=== PATIENT | female | born 1935 | race Caucasian/White ===

== ENCOUNTER 2022-10-30 11:43 | Emergency (ER) | payer OTHER ==
--- OUTSIDE RECORDS SUMMARY | 2022-10-30 11:49 | XMS REPORT | Continuity of Care Document ---
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 Fenofibrate 2021-0 Yes TAKE ONE Ke lsey 160 MG oral 2-21 (1) Seybold Tablet 00:00: TABLET(S) 00 BY MOUTH ONCE A DAY. Fenofibrate 2021-0 Yes TAKE ONE Ke lsey 160 MG oral 2-21 (1) Seybold Tablet 00:00: TABLET(S) 00 BY MOUTH ONCE A DAY. Fenofibrate 2021-0 Yes TAKE ONE Ke lsey 160 MG oral 2-21 (1) Seybold Tablet 00:00: TABLET(S) - 00 BY MOUTH Externa ONCE A l DAY. Fenofibrate 2021-0 Yes TAKE ONE Ke lsey 160 MG oral 2-21 (1) Seybold Tablet 00:00: TABLET(S) - 00 BY MOUTH Externa ONCE A l DAY. Fenofibrate 2021-0 Yes TAKE ONE Ke lsey 160 MG oral 2-21 (1) Seybold Tablet 00:00: TABLET(S) - 00 BY MOUTH Externa ONCE A l DAY. Fenofibrate 2021-0 Yes TAKE ONE Ke lsey 160 MG oral 2-21 (1) Seybold Tablet 00:00: TABLET(S) - 00 BY MOUTH Externa ONCE A l DAY. Propranolol 2021-0 Yes 10mg Take 1 Susan ey HCl 10 MG 2-15 tablet (10 Seyb old oral Tablet 00:00: mg total) 00 by mouth 3 times daily Propranolol Yes 10mg Take 1 Susan ey HCl 10 MG 2-15 tablet (10 Seyb old oral Tablet 00:00: mg total) 00 by mouth 3 times daily Propranolol Yes 10mg Take 1 Susan ey HCl 10 MG 2-15 tablet (10 Seyb old oral Tablet 00:00: mg total) 00 by mouth 3 times daily Pregabalin Yes TAKE ONE Timbo sey 75 MG oral 2-08 (1) Seybold Capsule 00:00: CAPSULE(S) 00 BY MOUTH DAILY AFTER BREAKFAST AND TWO (2) CAPSULES AT BEDTIME. Pregabalin 2021- No TAKE ONE Ke lsey 75 MG oral 2-08 05-23 (1) Seybold Capsule 00:00: 00:00 CAPSULE(S) 00 :00 BY MOUTH DAILY AFTER BREAKFAST AND TWO (2) CAPSULES AT BEDTIME. CALCIUM OR Yes Take by Susan ey 1-31 mouth Seybold 14:30: 55 Multiple Yes Take by Yara Vitamins-Mi 1-31 mouth 2 Seybo ld nerals 14:30: times (PRESERVISI 55 daily ON AREDS 2 OR) Oxycodone Yes [id number] TAKE 1 K elsey HCl 10 MG 1-24 TABLET BY Seybo ld oral Tablet 00:00: MOUTH 00 EVERY 6 HOURS NEEDED Baclofen 10 Yes [id number] TAKE K elsey MG oral 1-10 ONE-HALF Seybold Tablet 00:00: TO ONE 00 TABLET BY MOUTH AT BEDTIME NEEDED FOR SPASMS. Pregabalin Yes TAKE ONE Timbo sey 75 MG oral 1-10 (1) Seybold Capsule 00:00: CAPSULE(S) 00 BY MOUTH DAILY AFTER BREAKFAST AND TWO (2) CAPSULES AT BEDTIME. Propranolol 2020-05 Yes 10mg Take 1 Susan ey HCl 10 MG 1-24 tablet (10 Seyb old oral Tablet 00:00: mg total) 00 by mouth 3 times daily Citalopram 2020-05 Yes TAKE 1 Kelse y Hydrobromid 1-19 TABLET BY Sey bold e 10 MG 00:00: MOUTH oral Tablet 00 EVERY DAY Citalopram 2020-05 Yes TAKE 1 Kelse y Hydrobromid 1-19 TABLET BY Sey bold e 10 MG 00:00: MOUTH oral Tablet 00 EVERY DAY Citalopram 2020-05 Yes TAKE 1 Kelse y Hydrobromid 1-19 TABLET BY Sey bold e 10 MG 00:00: MOUTH oral Tablet 00 EVERY DAY Citalopram 2020-05 Yes TAKE 1 Kelse y Hydrobromid 1-19 TABLET BY Sey bold e 10 MG 00:00: MOUTH oral Tablet 00 EVERY DAY CALCIUM OR 2020-05 Yes Take by Susan ey 1-10 mouth Seybold 13:31: 15 Multiple 2020-05 Yes Take by Yara Vitamins-Mi 1-10 mouth 2 Seybo ld nerals 13:31: times (PRESERVISI 15 daily ON AREDS 2 OR) Baclofen 10 2020-05 Yes [id number] 05/24- Yaar MG oral 1-10 tablet at Seybold Tablet 00:00: bedtime as 00 needed for spasms Montelukast 2020-05 Yes TAKE 1 Susan ey (SINGULAIR) 1-03 TABLET BY Sey bold 10 MG oral 00:00: MOUTH Tablet 00 EVERYDAY tablet AT BEDTIME Montelukast 2020-05 Yes TAKE 1 Susan ey (SINGULAIR) 1-03 TABLET BY Sey bold 10 MG oral 00:00: MOUTH Tablet 00 EVERYDAY tablet AT BEDTIME Montelukast 2020-05 Yes TAKE 1 Susan ey (SINGULAIR) 1-03 TABLET BY Sey bold 10 MG oral 00:00: MOUTH Tablet 00 EVERYDAY tablet AT BEDTIME Montelukast 2020-05 Yes TAKE 1 Susan ey (SINGULAIR) 1-03 TABLET BY Sey bold 10 MG oral 00:00: MOUTH Tablet 00 EVERYDAY tablet AT BEDTIME Montelukast 2020-05 Yes TAKE 1 Susan ey (SINGULAIR) 1-03 TABLET BY Sey bold 10 MG oral 00:00: MOUTH Tablet 00 EVERYDAY tablet AT BEDTIME Oxycodone 2020-05 Yes [id number] TAKE ONE Yara HCl 10 MG 0-21 (1) TABLET Seyb old oral Tablet 00:00: BY MOUTH 00 EVERY 6 HOURS NEEDED. CALCIUM OR 2020-05 Yes Take by Susan ey 0-18 mouth Seybold 14:00: 45 Multiple 2020-05 Yes Take by Yara Vitamins-Mi 0-18 mouth 2 Seybo ld nerals 14:00: times (PRESERVISI 45 daily ON AREDS 2 OR) Amlodipine 2020-05 Yes [id number] 5mg Take 1 K elsey Besylate 5 0-13 tablet (5 Seyb old MG oral 00:00: mg total) Tablet 00 by mouth daily Amlodipine 2020-05 Yes [id number] 5mg Take 1 K elsey Besylate 5 0-13 tablet (5 Seyb old MG oral 00:00: mg total) Tablet 00 by mouth daily Amlodipine 2020-05 Yes [id number] 5mg Take 1 K elsey Besylate 5 0-13 tablet (5 Seyb old MG oral 00:00: mg total) Tablet 00 by mouth daily CALCIUM OR 2020-05 Yes Take by Susan ey 0-06 mouth Seybold 13:12: 25 Multiple 2020-05 Yes Take by Yara Vitamins-Mi 0-06 mouth 2 Seybo ld nerals 13:12: times (PRESERVISI 25 daily ON AREDS 2 OR) Omeprazole 2020-05 Yes 40mg Take 1 Kelse y 40 MG oral 0-06 capsule Seybol d Delayed 00:00: (40 mg Release 00 total) by Capsule mouth daily Omeprazole 2020-05 Yes 40mg Take 1 Kelse y 40 MG oral 0-06 capsule Seybol d Delayed 00:00: (40 mg Release 00 total) by Capsule mouth daily Omeprazole 2020-05 Yes 40mg Take 1 Kelse y 40 MG oral 0-06 capsule Seybol d Delayed 00:00: (40 mg Release 00 total) by Capsule mouth daily Omeprazole 2020-05 Yes 40mg Take 1 Kelse y 40 MG oral 0-06 capsule Seybol d Delayed 00:00: (40 mg Release 00 total) by Capsule mouth daily Omeprazole 2020-05- No 40mg Take 1 Susan ey 40 MG oral 0-06 04-26 capsule Seybo ld Delayed 00:00: 00:00 (40 mg Release 00 :00 total) by Capsule mouth daily Oxycodone Yes [id number] TAKE ONE Yara HCl 10 MG 9-22 (1) TABLET Seyb old oral Tablet 00:00: BY MOUTH 00 EVERY 6 HOURS NEEDED. Oxycodone Yes [id number] TAKE ONE Yara HCl 10 MG 9-22 (1) TABLET Seyb old oral Tablet 00:00: BY MOUTH 00 EVERY 6 HOURS NEEDED. Levocetiriz Yes [id number] TAKE ONE Yara ine 9-20 (1) TABLET Seybold Dihydrochlo 00:00: (5 MG ride 5 MG 00 TOTAL) BY oral Tablet MOUTH DAILY. Levocetiriz Yes [id number] TAKE ONE Yara ine 9-20 (1) TABLET Seybold Dihydrochlo 00:00: (5 MG ride 5 MG 00 TOTAL) BY oral Tablet MOUTH DAILY. Levocetiriz Yes [id number] TAKE ONE Yara ine 9-20 (1) TABLET Seybold Dihydrochlo 00:00: (5 MG ride 5 MG 00 TOTAL) BY oral Tablet MOUTH DAILY. Levocetiriz Yes [id number] TAKE ONE Yara ine 9-20 (1) TABLET Seybold Dihydrochlo 00:00: (5 MG ride 5 MG 00 TOTAL) BY oral Tablet MOUTH DAILY. Levocetiriz Yes [id number] TAKE ONE Yara ine 9-20 (1) TABLET Seybold Dihydrochlo 00:00: (5 MG ride 5 MG 00 TOTAL) BY oral Tablet MOUTH DAILY. Levocetiriz Yes [id number] TAKE ONE Yara ine 9-20 (1) TABLET Seybold Dihydrochlo 00:00: (5 MG ride 5 MG 00 TOTAL) BY oral Tablet MOUTH DAILY. Levocetiriz Yes [id number] TAKE ONE Yara ine 9-20 (1) TABLET Seybold Dihydrochlo 00:00: (5 MG ride 5 MG 00 TOTAL) BY oral Tablet MOUTH DAILY. Gabapentin 2020-0 Yes 800mg Take 1 Susan ey 800 MG oral 8-29 tablet Seybol d Tablet 00:00: (800 mg 00 total) by mouth 3 times daily Gabapentin 2020-0 Yes 800mg Take 1 Susan ey 800 MG oral 8-29 tablet Seybol d Tablet 00:00: (800 mg 00 total) by mouth 3 times daily Gabapentin 2020-0 2021- No 800mg Take 1 Timbo sey 800 MG oral 8-29 11-10 tablet Seybo ld Tablet 00:00: 00:00 (800 mg 00 :00 total) by mouth 3 times daily FLUTICASONE 2021-0 Yes [id number] INSTILL Yara PROPIONATE, 7- TWO (2) Seybo ld NASAL, 50 00:00: SPRAYS IN MCG/ACT 00 EACH nasal NOSTRIL Suspension ONCE DAILY. FLUTICASONE 1-0 Yes [id number] INSTILL Yara PROPIONATE, 7- TWO (2) Seybo ld NASAL, 50 00:00: SPRAYS IN MCG/ACT 00 EACH nasal NOSTRIL Suspension ONCE DAILY. FLUTICASONE 2021-0 Yes [id number] INSTILL Yara PROPIONATE, 7- TWO (2) Seybo ld NASAL, 50 00:00: SPRAYS IN MCG/ACT 00 EACH nasal NOSTRIL Suspension ONCE DAILY. FLUTICASONE 2021-0 Yes [id number] INSTILL Yara PROPIONATE, 7- TWO (2) Seybo ld NASAL, 50 00:00: SPRAYS IN MCG/ACT 00 EACH nasal NOSTRIL Suspension ONCE DAILY. FLUTICASONE 2021-0 Yes [id number] INSTILL Yara PROPIONATE, 7- TWO (2) Seybo ld NASAL, 50 00:00: SPRAYS IN MCG/ACT 00 EACH nasal NOSTRIL Suspension ONCE DAILY. Cefdinir 1-0 Yes 300mg Take 1 Yara 300 MG oral 7-14 capsule Seybo ld Capsule 00:00: (300 mg 00 total) by mouth 2 times daily Cefdinir 2021-0 Yes 300mg Take 1 Yara 300 MG oral 7-14 capsule Seybo ld Capsule 00:00: (300 mg 00 total) by mouth 2 times daily Cefdinir 2021-0 Yes 300mg Take 1 Yara 300 MG oral 7-14 capsule Seybo ld Capsule 00:00: (300 mg 00 total) by mouth 2 times daily Cefdinir 2021-0 Yes 300mg Take 1 Yara 300 MG oral 7-14 capsule Seybo ld Capsule 00:00: (300 mg 00 total) by mouth 2 times daily Cefdinir 2021-0 2022- No 300mg Take 1 Kelse y 300 MG oral 7-14 04-26 capsule Seyb old Capsule 00:00: 00:00 (300 mg 00 :00 total) by mouth 2 times daily Omeprazole 2020-0 Yes TAKE ONE Timbo sey 40 MG oral 7-12 (1) Seybold Delayed 00:00: CAPSULE(S) Release 00 BY MOUTH Capsule ONCE A DAY. Omeprazole 2020-0 Yes TAKE ONE Timbo sey 40 MG oral 7-12 (1) Seybold Delayed 00:00: CAPSULE(S) Release 00 BY MOUTH Capsule ONCE A DAY. Omeprazole 2020-0 Yes TAKE ONE Timbo sey 40 MG oral 7-12 (1) Seybold Delayed 00:00: CAPSULE(S) Release 00 BY MOUTH Capsule ONCE A DAY. Omeprazole 2020-0 Yes TAKE ONE Timbo sey 40 MG oral 7-12 (1) Seybold Delayed 00:00: CAPSULE(S) Release 00 BY MOUTH Capsule ONCE A DAY. Omeprazole 2020-0 Yes TAKE ONE Timbo sey 40 MG oral 7-12 (1) Seybold Delayed 00:00: CAPSULE(S) Release 00 BY MOUTH Capsule ONCE A DAY. Omeprazole 2020-0 Yes TAKE ONE Timbo sey 40 MG oral 7-12 (1) Seybold Delayed 00:00: CAPSULE(S) Release 00 BY MOUTH Capsule ONCE A DAY. Omeprazole 2020-0 Yes TAKE ONE Timbo sey 40 MG oral 7-12 (1) Seybold Delayed 00:00: CAPSULE(S) - Release 00 BY MOUTH Externa Capsule ONCE A l DAY. Omeprazole 2020-0 Yes TAKE ONE Timbo sey 40 MG oral 7-12 (1) Seybold Delayed 00:00: CAPSULE(S) - Release 00 BY MOUTH Externa Capsule ONCE A l DAY. Omeprazole 2020-0 Yes TAKE ONE Timbo sey 40 MG oral 7-12 (1) Seybold Delayed 00:00: CAPSULE(S) Release 00 BY MOUTH Capsule ONCE A DAY. methylPREDN 2020-0 Yes 1{mckenzie} Take 1 mckenzie Yara ISolone 6-30 by mouth Seybold (Medrol) 4 00:00: See Admin MG oral 00 Instructio Tablet ns 6 day Therapy taper Pack course methylPREDN 2020-0 Yes 1{mckenzie} Take 1 mckenzie Yara ISolone 6-30 by mouth Seybold (Medrol) 4 00:00: See Admin MG oral 00 Instructio Tablet ns 6 day Therapy taper Pack course methylPREDN 2020- No 1{mckenzie} Take 1 mckenzie Yara ISolone 6-30 11-10 by mouth Seybold (Medrol) 4 00:00: 00:00 See Admin MG oral 00 :00 Instructio Tablet ns 6 day Therapy taper Pack course Lisinopril Yes 10mg Take 1 Kelse y 10 MG oral 6-29 tablet (10 Sey bold Tablet 00:00: mg total) 00 by mouth daily Lisinopril Yes 10mg Take 1 Kelse y 10 MG oral 6-29 tablet (10 Sey bold Tablet 00:00: mg total) 00 by mouth daily Lisinopril Yes 10mg Take 1 Kelse y 10 MG oral 6-29 tablet (10 Sey bold Tablet 00:00: mg total) 00 by mouth daily Lisinopril Yes 10mg Take 1 Kelse y 10 MG oral 6-29 tablet (10 Sey bold Tablet 00:00: mg total) 00 by mouth daily Lisinopril Yes 10mg Take 1 Kelse y 10 MG oral 6-29 tablet (10 Sey bold Tablet 00:00: mg total) 00 by mouth daily Lisinopril Yes 10mg Take 1 Kelse y 10 MG oral 6-29 tablet (10 Sey bold Tablet 00:00: mg total) 00 by mouth daily Lisinopril Yes 10mg Take 1 Kelse y 10 MG oral 6-29 tablet (10 Sey bold Tablet 00:00: mg total) 00 by mouth daily Propranolol Yes 10mg Take 1 Susan ey HCl 10 MG 6-02 tablet (10 Seyb old oral Tablet 00:00: mg total) 00 by mouth 3 times daily Propranolol Yes 10mg Take 1 Susan ey HCl 10 MG 6-02 tablet (10 Seyb old oral Tablet 00:00: mg total) 00 by mouth 3 times daily Propranolol 2020- Yes 10mg Take 1 Susan ey HCl 10 MG 6-02 tablet (10 Seyb old oral Tablet 00:00: mg total) 00 by mouth 3 times daily Amlodipine Yes [id number] 5mg Take 1 K elsey Besylate 5 4-26 tablet (5 Seyb old MG oral 00:00: mg total) Tablet 00 by mouth daily Fenofibrate Yes 160mg Take 1 Timbo sey 160 MG oral 2-08 tablet Seybol d Tab 00:00: (160 mg 00 total) by mouth daily Fenofibrate Yes 160mg Take 1 Timbo sey 160 MG oral 2-08 tablet Seybol d Tab 00:00: (160 mg 00 total) by mouth daily Fenofibrate Yes 160mg Take 1 Timbo sey 160 MG oral 2-08 tablet Seybol d Tab 00:00: (160 mg 00 total) by mouth daily Fenofibrate Yes 160mg Take 1 Timbo sey 160 MG oral 2-08 tablet Seybol d Tab 00:00: (160 mg 00 total) by mouth daily Montelukast 2019-05 Yes TAKE 1 Susan ey (SINGULAIR) 1-04 TABLET BY Sey bold 10 MG oral 00:00: MOUTH Tab tablet 00 DAILY AT BEDTIME Montelukast 2019-05 Yes TAKE 1 Susan ey (SINGULAIR) 1-04 TABLET BY Sey bold 10 MG oral 00:00: MOUTH Tab tablet 00 DAILY AT BEDTIME Estradiol 2019-05 Yes TAKE 1 Yara 0.5 MG oral 0-15 TABLET BY Sey bold Tab 00:00: MOUTH 00 EVERY DAY Estradiol 2019-05 Yes TAKE 1 Yara 0.5 MG oral 0-15 TABLET BY Sey bold Tab 00:00: MOUTH 00 EVERY DAY Estradiol 2019-05 Yes TAKE 1 Yara 0.5 MG oral 0-15 TABLET BY Sey bold Tab 00:00: MOUTH 00 EVERY DAY Estradiol 2019-05 Yes TAKE 1 Yara 0.5 MG oral 0-15 TABLET BY Sey bold Tab 00:00: MOUTH 00 EVERY DAY Estradiol 2019-05 Yes TAKE 1 Yara 0.5 MG oral 0-15 TABLET BY Sey bold Tab 00:00: MOUTH 00 EVERY DAY Estradiol 2019-05 Yes TAKE 1 Yara 0.5 MG oral 0-15 TABLET BY Sey bold Tab 00:00: MOUTH 00 EVERY DAY Estradiol 2019-05- No TAKE 1 Kelse y 0.5 MG oral 0-15 06-06 TABLET BY Se ybold Tab 00:00: 00:00 MOUTH 00 :00 EVERY DAY Citalopram Yes TAKE 1 Kelse y Hydrobromid 8-30 TABLET BY Sey bold e 10 MG 00:00: MOUTH oral Tab 00 EVERY DAY Citalopram 2019-0 Yes TAKE 1 Kelse y Hydrobromid 8-30 TABLET BY Christofer bold e 10 MG 00:00: MOUTH oral Tab 00 EVERY DAY Citalopram 2020-0 Yes TAKE 1 Kelse y Hydrobromid 8-30 TABLET BY Christofer bold e 10 MG 00:00: MOUTH oral Tab 00 EVERY DAY Baclofen 5 2020-0 Yes [id number] TAKE 1 Yara MG oral Tab 6-14 TABLET BY Christofer bold 00:00: MOUTH 2 00 TIMES DAILY NEEDED Baclofen 5 2019-0 Yes [id number] TAKE 1 Yara MG oral Tab 6-14 TABLET BY Christofer magaña 00:00: MOUTH 2 00 TIMES DAILY NEEDED Baclofen 5 2019-0 2020- No [id number] TAKE 1 Yara MG oral Tab 6-14 11-10 TABLET BY Se lopez 00:00: 00:00 MOUTH 2 00 :00 TIMES DAILY NEEDED citalopram 2019-0 Yes 10mg QD Take [address] (CELEXA) 10 5-04 by mouth Luke s MG tablet 12:38: nightly . Med ical [address] [place] gabapentin 2019-0 Yes 600mg [id number] Take [address] [facility] (NEURONTIN) 5-04 [id number] mg by L ukes 600 MG 12:38: 3D mouth 3 Medical tablet 59 (three) Center times daily. montelukast 2019-0 Yes 10mg QD Take [address] [facility] (SINGULAIR) 5-04 by mouth Luke s 10 mg 12:38: nightly. Medical tablet 59 [place] estradioL 2020-0 Yes .5mg QD Take 0.[address] [facility] (ESTRACE) 5-04 mg by [facility] 0.5 MG 12:38: mouth Medical tablet 59 daily. [place] citalopram 2020-0 Yes 10mg QD Take [address] (CELEXA) 10 5-04 by mouth Luke s MG tablet 12:38: nightly . Med ical 59 [place] gabapentin 2020-0 Yes 600mg [id number] Take [address] [facility] (NEURONTIN) 5-04 [id number] mg by L ukes 600 MG 12:38: 3D mouth 3 Medical tablet 59 (three) Center times daily. montelukast 2020-0 Yes 10mg QD Take [address] [facility] (SINGULAIR) 5-04 by mouth Luke s 10 mg 12:38: nightly. Medical tablet 59 Center estradioL 2020-0 Yes .5mg QD Take 0.[address] [facility] (ESTRACE) 5-04 mg by [facility] 0.5 MG 12:38: mouth Medical tablet 59 daily. Center baclofen 2020-0 Yes 5mg [facility] (LIORESAL[facility] 5-04 tablets (5 Rachel es 10 MG 00:00: mg total) Medical tablet 00 by mouth 2 Center (two) times daily as needed. baclofen 2020-0 Yes 5mg Take 0.5 [facility] (LIOR[facility] 5-04 tablets (5 Rachel es 10 MG 00:00: mg total) Medical tablet 00 by mouth 2 Center (two) times daily as needed. omeprazole 2020-0 Yes 40mg Q.5D Take [address] (PRILOSEC) 4-14 by mouth 2 Rachel es 40 MG 00:00: (two) Medical capsule 00 times Center daily . omeprazole 2020-0 Yes 40mg Q.5D Take [address] (PRILOSEC) 4-14 by mouth 2 Rachel es 40 MG 00:00: (two) Medical capsule 00 times Center daily . fenofibrate 2020-0 Yes TAKE [address] [facility] (TRIGLIDE,L 3-21 TABLET BY Rachel es OFIBRA) 160 00:00: MOUTH Medic al [facility]-0 Yes TAKE [address] [facility] (TRIGLIDE,L 3-21 TABLET BY Rachel es OFIBRA) 160 00:00: MOUTH Medic al MG tablet 00 EVERY DAY Cente r Ibuprofen No Notes: Memori a 8-11 (Same as: l 15:30: Motrin) Micheal 00 "Do Not Crush" Give with food. Saline No Notes: Memoria Flush 0.9% 8-11 (Same as: l 15:30: BD Micheal 00 Posiflush) Ibuprofen No Notes: Memori a 8-11 (Same as: l 15:30: Motrin) Micheal 00 "Do Not Crush" Give with food. Saline No Notes: Memoria Flush 0.9% 8-11 (Same as: l 15:30: BD Micheal 00 Posiflush) Ibuprofen 2017-0 No Notes: Memori a 8-11 (Same as: l 15:30: Motrin) Micheal 00 "Do Not Crush" Give with food. Saline 2017 No Notes: Memoria Flush 0.9% 8-11 (Same as: l 15:30: BD [place] 00 Posiflush) Ibuprofen 2017 No Notes: Memori a 8-11 (Same as: l 15:30: Motrin) [place] 00 "Do Not Crush" Give with food. Saline 2017 No Notes: Memoria Flush 0.9% 8-11 (Same as: l 15:30: BD Micheal 00 Posiflush) Ibuprofen [id number] No Notes: Memori a 8-11 (Same as: l 15:30: Motrin) Micheal 00 "Do Not Crush" Give with food. Saline No Notes: Memoria Flush 0.9% 8-11 (Same as: l 15:30: BD [place] 00 Posiflush) Ibuprofen 2017 No Notes: Memori a 8-11 (Same as: l 15:30: Motrin) [place] 00 "Do Not Crush" Give with food. Saline No Notes: Memoria Flush 0.9% 8-11 (Same as: l 15:30: BD [place] 00 Posiflush) Ibuprofen [id number] No Notes: Memori a 8-11 (Same as: l 15:30: Motrin) [place] 00 "Do Not Crush" Give with food. Ibuprofen 20170 No Notes: Memori a 8-11 (Same as: l 15:30: Motrin) [place] 00 "Do Not Crush" Give with food. Saline 2017 No Notes: Memoria Flush 0.9% 8-11 (Same as: l 15:30: BD [place] 00 Posiflush) Saline 20170 No Notes: Memoria Flush 0.9% 8-11 (Same as: l 15:30: BD Micheal 00 Posiflush) Ibuprofen 20170 No Notes: Memori a 8-11 (Same as: l 15:30: Motrin) Micheal 00 "Do Not Crush" Give with food. Saline No Notes: Memoria Flush 0.9% 8-11 (Same as: l 15:30: BD [place] 00 Posiflush) Immunizations Ordered Immunization Filled Immunization Date Status Commen ts Source Name Name diphtheria/pertussis, 2016-12-31 Completed Mem orial acel/tetanus adult 16:20:00 Frank n diphtheria/pertussis, 2016-12-31 Completed Mem orial acel/tetanus adult 16:20:00 Frank n diphtheria/pertussis, 2016-12-31 Completed Mem orial acel/tetanus adult 16:20:00 Frank n diphtheria/pertussis, 2016-12-31 Completed Mem orial acel/tetanus adult 16:20:00 Frank n diphtheria/pertussis, 2016-12-31 Completed Mem orial acel/tetanus adult 16:20:00 Frank n diphtheria/pertussis, 2016-12-31 Completed Mem orial acel/tetanus adult 16:20:00 Frank n diphtheria/pertussis, 2016-12-31 Completed Mem orial acel/tetanus adult 16:20:00 Frank n diphtheria/pertussis, 2016-12-31 Completed Mem orial acel/tetanus adult 16:20:00 Frank n diphtheria/pertussis, 2016-12-31 Completed Mem orial acel/tetanus adult 16:20:00 Frank n Tdap- (Boostrix, 2016-12-31 Completed Yara S eybold Adacel) 00:00:00 Tdap- (Boostrix, 2016-12-31 Completed Yara S eybold Adacel) 00:00:00 Tdap- (Boostrix, 2016-12-31 Completed Yara S eybold Adacel) 00:00:00 Tdap- (Boostrix, 2016-12-31 Completed Yara S eybold Adacel) 00:00:00 Tdap- (Boostrix, 2016-12-31 Completed Yara S eybold Adacel) 00:00:00 - External Tdap- (Boostrix, 2016-12-31 Completed Yara S eybold Adacel) 00:00:00 - External Tdap- (Boostrix, 2016-12-31 Completed Yara S eybold Adacel) 00:00:00 - External Tdap- (Boostrix, 2016-12-31 Completed Yara S eybold Adacel) 00:00:00 - External Tdap- (Boostrix, 2016-12-31 Completed Yara S eybold Adacel) 00:00:00 - External Pneumococcal Vaccine, 2014 Completed Timbo sey Seybold Conjugate 13 00:00:00 Pneumococcal Vaccine, 2014 Completed Timbo sey Seybold Conjugate 13 00:00:00 Pneumococcal Vaccine, 2014 Completed Timbo sey Seybold Conjugate 13 00:00:00 Pneumococcal Vaccine, 2014 Completed Timbo sey Seybold Conjugate 13 00:00:00 Pneumococcal Vaccine, 2014 Completed Timbo sey Seybold Conjugate 13 00:00:00 Pneumococcal Vaccine, 2014 Completed Timbo sey Seybold Conjugate 13 00:00:00 Pneumococcal Vaccine, 2014 Completed Timbo sey Seybold Conjugate 13 00:00:00 - External Pneumococcal Vaccine, 2014 Completed Timbo sey Seybold Conjugate 13 00:00:00 - External Pneumococcal Vaccine, 2014 Completed Timbo sey Seybold Conjugate 13 00:00:00 - External Pneumococcal Vaccine, 2014 Completed Timbo sey Seybold Conjugate 13 00:00:00 - External Pneumococcal Vaccine, 2014 Completed Timbo sey Seybold Conjugate 13 00:00:00 - External Pneumococcal Vaccine, 2014 Completed Timbo sey Seybold Conjugate 13 00:00:00 Tdap- (Boostrix, 2012-07-14 Completed Yara S eybold Adacel) 00:00:00 Tdap- (Boostrix, 2012-07-14 Completed Yara S eybold Adacel) 00:00:00 Tdap- (Boostrix, 2012-07-14 Completed Yara S eybold Adacel) 00:00:00 Tdap- (Boostrix, 2012-07-14 Completed Yara S eybold Adacel) 00:00:00 Tdap- (Boostrix, 2012-07-14 Completed Yara S eybold Adacel) 00:00:00 Tdap- (Boostrix, 2012-07-14 Completed Yara S eybold Adacel) 00:00:00 Tdap- (Boostrix, 2012-07-14 Completed Yara S eybold Adacel) 00:00:00 - External Tdap- (Boostrix, 2012-07-14 Completed Yara S eybold Adacel) 00:00:00 - External Tdap- (Boostrix, 2012-07-14 Completed Yara S eybold Adacel) 00:00:00 - External Tdap- (Boostrix, 2012-07-14 Completed Yara S eybold Adacel) 00:00:00 - External Tdap- (Boostrix, 2012-07-14 Completed Yara S eybold Adacel) 00:00:00 - External Tdap- (Boostrix, 2012-07-14 Completed Yara S eybold Adacel) 00:00:00 Shingles SQ 2012-05-24 Completed Yara Seybol d (Zostavax) 00:00:00 Shingles SQ 2012-05-24 Completed Yara Seybol d (Zostavax) 00:00:00 Shingles SQ 2012-05-24 Completed Yara Seybol d (Zostavax) 00:00:00 Shingles SQ 2012-05-24 Completed Yara Seybol d (Zostavax) 00:00:00 Shingles SQ 2012-05-24 Completed Yara Seybol d (Zostavax) 00:00:00 Shingles SQ 2012-05-24 Completed Yara Seybol d (Zostavax) 00:00:00 Shingles SQ 2012-05-24 Completed Yara Duncanybol d (Zostavax) 00:00:00 - External Shingles SQ 2012-05-24 Completed Yara Seybol d (Zostavax) 00:00:00 - External Shingles SQ 2012-05-24 Completed Yara Seybol d (Zostavax) 00:00:00 - External Shingles SQ 2012-05-24 Completed Yara Seybol d (Zostavax) 00:00:00 - External Shingles SQ 2012-05-24 Completed Yara Seybol d (Zostavax) 00:00:00 - External Shingles SQ 2012-05-24 Completed Yara Duncanybol d (Zostavax) 00:00:00 Influenza Virus 2012-03-24 Completed Yara Se ybold Vaccine, age 6 months 00:00:00 and up Influenza Virus 2012-03-24 Completed Yara Se ybold Vaccine, age 6 months 00:00:00 and up Influenza Virus 2012-03-24 Completed Yara Se ybold Vaccine, age 6 months 00:00:00 and up Influenza Virus 2012-03-24 Completed Yara Se ybold Vaccine, age 6 months 00:00:00 and up Influenza Virus 2012-03-24 Completed Yara Se ybold Vaccine, age 6 months 00:00:00 and up Influenza Virus 2012-03-24 Completed Yara Se ybold Vaccine, age 6 months 00:00:00 and up Influenza Virus 2012-03-24 Completed Yara Se ybold Vaccine, age 6 months 00:00:00 - E xternal and up Influenza Virus 2012-03-24 Completed Yara Se ybold Vaccine, age 6 months 00:00:00 - E xternal and up Influenza Virus 2012-03-24 Completed Yara Se ybold Vaccine, age 6 months 00:00:00 - E xternal and up Influenza Virus 2012-03-24 Completed Yara Se ybold Vaccine, age 6 months 00:00:00 - E xternal and up Influenza Virus 2012-03-24 Completed Yara Se ybold Vaccine, age 6 months 00:00:00 - E xternal and up Influenza Virus 2012-03-24 Completed Yara Se ybold Vaccine, age 6 months 00:00:00 and up Pneumococcal Vaccine, 2006-12-21 Completed Timbo sey Seybold Polysaccharide 00:00:00 Pneumococcal Vaccine, 2006-12-21 Completed Timbo sey Seybold Polysaccharide 00:00:00 Pneumococcal Vaccine, 2006-12-21 Completed Timbo sey Seybold Polysaccharide 00:00:00 Pneumococcal Vaccine, 2006-12-21 Completed Timbo sey Seybold Polysaccharide 00:00:00 Pneumococcal Vaccine, 2006-12-21 Completed Timbo sey Seybold Polysaccharide 00:00:00 Pneumococcal Vaccine, 2006-12-21 Completed Timbo sey Seybold Polysaccharide 00:00:00 Pneumococcal Vaccine, 2006-12-21 Completed Timbo sey Seybold Polysaccharide 00:00:00 - External Pneumococcal Vaccine, 2006-12-21 Completed Timbo sey Seybold Polysaccharide 00:00:00 - External Pneumococcal Vaccine, 2006-12-21 Completed Timbo sey Seybold Polysaccharide 00:00:00 - External Pneumococcal Vaccine, 2006-12-21 Completed Timbo sey Seybold Polysaccharide 00:00:00 - External Pneumococcal Vaccine, 2006-12-21 Completed Timbo sey Seybold Polysaccharide 00:00:00 - External Pneumococcal Vaccine, 2006-12-21 Completed Timbo sey Seybold Polysaccharide 00:00:00 Vital Signs Vital Name Observation Time Observation Value Comments Source Systolic blood 2022-10-13 18:10:00 119 mm[Hg] Yara Seybold - pressure External Diastolic blood 2022-10-13 18:10:00 70 mm[Hg] Kelse y Seybold - pressure External Heart rate 2022-10-13 18:10:00 61 /min Yara S eybold - External Body temperature 2022-10-13 18:10:00 36.89 Kavitha Susan ey Seybold - External Respiratory rate 2022-10-13 18:10:00 19 /min Susan ey Seybold - External Body height 2022-10-13 18:10:00 165.1 cm Yara S eybold - External Body weight 2022-10-13 18:10:00 63.05 kg Yara S eybold - External BMI 2022-10-13 18:10:00 23.13 kg/m2 Yara S eybold - External Oxygen saturation in 2022-10-13 18:10:00 97 /min Yara Gregg - Arterial blood by External Pulse oximetry Systolic blood 2022-09-15 15:21:00 114 mm[Hg] Yara Seybold - pressure External Diastolic blood 2022-09-15 15:21:00 66 mm[Hg] Kelse y Seybold - pressure External Heart rate 2022-09-15 15:21:00 63 /min Yara S eybold - External Body temperature 2022-09-15 15:21:00 36.89 Kavitha Susan ey Seybold - External Respiratory rate 2022-09-15 15:21:00 14 /min Susan ey Seybold - External Body height 2022-09-15 15:21:00 165.1 cm Yara S eybold - External Body weight 2022-09-15 15:21:00 59.875 kg Yara S eybold - External BMI 2022-09-15 15:21:00 21.97 kg/m2 Yara S eybold - External Body weight 2022-08-31 19:52:00 59.421 kg Yara S eybold - External BMI 2022-08-31 19:52:00 21.80 kg/m2 Yara S eybold - External Systolic blood 2022-06-09 17:23:00 107 mm[Hg] Yara Seybold - pressure External Diastolic blood 2022-06-09 17:23:00 57 mm[Hg] Kelse y Seybold - pressure External Heart rate 2022-06-09 17:23:00 57 /min Yara S eybold - External Body temperature 2022-06-09 17:23:00 36.72 Kavitha Susan ey Seybold - External Respiratory rate 2022-06-09 17:23:00 14 /min Susan ey Seybold - External Body height 2022-06-09 17:23:00 165.1 cm Yara S eybold - External Body weight 2022-06-09 17:23:00 59.421 kg Yara S eybold - External BMI 2022-06-09 17:23:00 21.80 kg/m2 Yara S eybold - External Oxygen saturation in 2022-06-09 17:23:00 99 /min Yara Duncansonalmary - Arterial blood by External Pulse oximetry Body height 2022-06-03 21:49:00 165.1 cm Yara S eybold - External Body weight 2022-06-03 21:49:00 60.328 kg Yara S eybold - External BMI 2022-06-03 21:49:00 22.13 kg/m2 Yara S eybold - External Body height 2021-10-26 18:37:00 165.1 cm Yara S eybold Body weight 2021-10-26 18:37:00 61.236 kg Yara S eybold BMI 2021-10-26 18:37:00 22.47 kg/m2 Yara S eybold Systolic blood 2021-10-12 18:46:00 132 mm[Hg] Yara Seybold pressure Diastolic blood 2021-10-12 18:46:00 72 mm[Hg] Kelse y Seybold pressure Heart rate 2021-10-12 18:46:00 75 /min Yara S eybold Body temperature 2021-10-12 18:46:00 36 Kavitha Susan ey Seybold Respiratory rate 2021-10-12 18:46:00 16 /min Susan ey Seybold Body height 2021-10-12 18:46:00 165.1 cm Yara S eybold Body weight 2021-10-12 18:46:00 59.875 kg Yara S eybold BMI 2021-10-12 18:46:00 21.97 kg/m2 Yara S eybold Oxygen saturation in 2021-10-12 18:46:00 98 /min Yara Seybold Arterial blood by Pulse oximetry Systolic blood 2021-09-15 18:49:00 112 mm[Hg] Yara Seybold pressure Diastolic blood 2021-09-15 18:49:00 60 mm[Hg] Kelse y Seybold pressure Heart rate 2021-09-15 18:49:00 63 /min Yara S eybold Respiratory rate 2021-09-15 18:49:00 16 /min Susan ey Seybold Body height 2021-09-15 18:49:00 165.1 cm Yara S eybold Body weight 2021-09-15 18:49:00 60.328 kg Yara S eybold BMI 2021-09-15 18:49:00 22.13 kg/m2 Yara S eybold Oxygen saturation in 2021-09-15 18:49:00 98 /min Yara Seybold Arterial blood by Pulse oximetry Systolic blood 2021-06-22 20:28:00 132 mm[Hg] Yara Seybold pressure Diastolic blood 2021-06-22 20:28:00 74 mm[Hg] Kelse y Seybold pressure Heart rate 2021-06-22 20:28:00 64 /min Yara S eybold Body temperature 2021-06-22 20:28:00 36.61 Kavitha Susan ey Seybold Respiratory rate 2021-06-22 20:28:00 16 /min Susan ey Seybold Body height 2021-06-22 20:28:00 165.1 cm Yara S eybold Body weight 2021-06-22 20:28:00 62.143 kg Yara wubold BMI 2021-06-22 20:28:00 22.80 kg/m2 Yara wubold Body height 2021-04-01 19:31:00 165.1 cm Yara Larson eybold Body weight 2021-04-01 19:31:00 61.689 kg Yara wubold BMI 2021-04-01 19:31:00 22.63 kg/m2 Yara Larson eybold Systolic blood 2021-02-25 18:15:00 120 mm[Hg] Yara Seybold pressure Diastolic blood 2021-02-25 18:15:00 62 mm[Hg] Kelse y Seybold pressure Heart rate 2021-02-25 18:15:00 76 /min Yara wubold Body temperature 2021-02-25 18:15:00 36.44 Kavitha Susan ey Seybold Respiratory rate 2021-02-25 18:15:00 20 /min Susan wu Seybold Body height 2021-02-25 18:15:00 165.1 cm Yara wubonarda Body weight 2021-02-25 18:15:00 61.689 kg Yara wubold BMI 2021-02-25 18:15:00 22.63 kg/m2 Yara wubold Respitory Rate 2016-12-31 16:32:00 Memori al Micheal Systolic (mm Hg) 2016-12-31 16:32:00 Cm rial [place] Diastolic (mm Hg) 2016-12-31 16:32:00 Mem orial [place] Temperature Oral (F) 2016-12-31 16:32:00 97.6 F [facility] Respitory Rate 2016-12-31 15:31:00 Memori al [place] Systolic (mm Hg) 2016-12-31 15:31:00 Cm rial Micheal Diastolic (mm Hg) 2016-12-31 15:31:00 Mem orial Mic[facility]al Weight 2016-12-31 15:13:00 [facility] Mic[facility]al BMI Calculated 2016-12-31 15:13:00 Memori al Micheal Temperature Oral (F) 2016-12-31 15:13:00 98.1 F [facility] [place] Height 2016-12-31 15:13:00 167.64 cm [facility] Heart [facility] 2016-12-31 15:13:00 [facility] Micheal Respitory Rate 2016-12-31 15:13:00 Dung guzman [place] Systolic (mm Hg) 2016-12-31 15:13:00 Cm fleming [place] Diastolic (mm Hg) 2016-12-31 15:13:00 Mem orial [place] Procedures Procedure Date / Time Performed Performing Clinician [facility] LUMBAR SPINE 2 VIEWS 2021-04-01 20:32:11 Dural, Lorene Hawkold UPRIGHT HIPS BILATERAL 2021-04-01 20:31:33 Dural, Lorene Hawko ld Hy[facility] Plan of Care Planned Activity Planned Date Details Comments Source Future Scheduled 2026-12-31 DTAP/TDAP/TD [facility] 00:[facility]:00 VACCINES (3 - Td or Medical Center Tdap) [code = DTAP/TDAP/TD VACCINES (3 - Td or Tdap)] Future Scheduled 2021-01-[address] [facility] 00:00:00 (#1) [code = Medical Center INFLUENZA VACCINE (#1)] Future Scheduled 2020-05-23 FALLS RISK SCREENING [facility] 00:00:00 [code = FALLS RISK Medical C enter SCREENING] Future Scheduled 2013-05-[address] [facility] 00:[facility]:00 WELLNESS (YEAR 2 or Medical Center FIRST YEAR if no IPPE) [code = MEDICARE ANNUAL WELLNESS (YEAR 2 or FIRST YEAR if no IPPE)] Future Scheduled 2012-07-19 SHINGLES VACCINES ([address] [facility] 00:00:00 of 3) [code = Medical Center SHINGLES VACCINES (2 of 3)] Future Scheduled 1947 COVID-19 VACCINE (1) [facility] 00:00:00 [code = COVID-[address] VACCINE (1)] Encounters Start End Encounter Admission Attending Care Care Encounter Source Date/Time Date/Time Type Type Clinicians Facility Department ID 2023-03-24 2023-03-24 Outpatient YARA JUSTIN [id number] Yara 09:00:00 09:00:00 GIOVANNA hernández 2023-03-02 2023-03-02 Outpatient YARA ADAMS [id number] Yara 14:00:00 14:00:00 CHELSEA Hawko ld 2022-11-17 2022-11-17 Outpatient DEANNA GOMEZ YARA NETTLES [id number] Yara 10:40:00 10:40:00 Seybol d 2022-11-05 2022-11-05 Outpatient MARCUS SEYMOUR [id number] Yara 14:00:00 14:00:00 Seybol d 2022-10-27 2022-10-27 Outpatient YARA CRUZ [id number] Yara 00:00:00 00:00:00 TERRY Seybol d 2022-10-27 2022-10-27 Outpatient GUSTAVOLUCINADEANNA King YARA NETTLES [id number] Yara 00:00:00 00:00:00 Seybol d 2022-10-27 2022-10-27 Outpatient YARA CRUZ [id number] Yara 00:00:00 00:00:00 TERRY Seybol d 2022-10-26 2022-10-26 Outpatient YARA JUSTIN [id number] Yara 00:00:00 00:00:00 GIOVANNA Seybol d 2022-10-25 2022-10-25 Outpatient NORM NETTLES [id number] Yara 00:00:00 00:00:00 MD QING Seybol d 2022-10-14 2022-10-14 Outpatient YARA JUSTIN [id number] Yara 00:00:00 00:00:00 GIOVANNA Seybol d 2022-10-13 2022-10-13 Outpatient LAB90 YARA NETTLES [id number] Yara 16:25:00 16:25:00 Seybol d 2022-10-13 2022-10-13 Outpatient YARA JUSTIN [id number] Yara 13:00:00 13:00:00 GIOVANNA Seybol d 2022-10-08 2022-10-08 Outpatient MARCUS SEYMOUR [id number] Yara 13:00:00 13:00:00 Seybol d 2022-10-07 2022-10-07 Outpatient SOCORRO WOOD [id number] Yara 00:00:00 00:00:00 Seybol d 2022-09-28 2022-09-28 Outpatient YARA CRUZ [id number] Yara 00:00:00 00:00:00 TERRY Seybol d 2022-09-20 2022-09-20 Outpatient YARA CRUZ [id number] Yara 00:00:00 00:00:00 TERRY Seybol d 2022-09-17 2022-09-17 Outpatient LAB90 YARA NETTLES [id number] Yara 11:10:00 11:10:00 Seybol d 2022-09-15 2022-09-15 Outpatient LAB90 YARA NETTLES [id number] Yara 11:45:00 11:45:00 Seybol d 2022-09-15 2022-09-15 Outpatient YARA JUSTIN [id number] Yara 10:30:00 10:30:00 GIOVANNA Seybol d 2022-09-07 2022-09-07 Outpatient SOCORRO WOOD [id number] Yara 00:00:00 00:00:00 Seybol d 2022-08-31 2022-08-31 Outpatient YARA ADAMS [id number] Yara 15:00:00 15:00:00 CHELSEA Seybo ld 2022-08-27 2022-08-27 Outpatient YARA CRUZ [id number] Yara 00:00:00 00:00:00 TERRY Seybol d 2022-08-23 2022-08-23 Outpatient YARA ADAMS [id number] Yara 15:15:00 15:15:00 CHELSEA Seybo ld 2022-08-23 2022-08-23 Outpatient DEANNA GOMEZ [id number] Yara 10:40:00 10:40:00 Seybol d 2022-08-23 2022-08-23 Outpatient DEANNA GOMEZ [id number] Yara 00:00:00 00:00:00 Seybol d 2022-08-09 2022-08-09 Outpatient DEANNA GOMEZ [id number] Yara 09:20:00 09:20:00 Seybol d 2022-08-06 2022-08-06 Outpatient SOCORRO WOOD [id number] Yara 00:00:00 00:00:00 Seybol d 2022-07-28 2022-07-28 Outpatient YARA CRUZ [id number] Yara 00:00:00 00:00:00 TERRY Seybol d 2022-07-26 2022-07-26 Outpatient YARA CORONA [id number] Yara 00:00:00 00:00:00 HYACINTHA Seybol d 2022-07-11 2022-07-11 Outpatient SOCORRO WOOD [id number] Yara 00:00:00 00:00:00 Seybol d 2022-07-06 2022-07-06 Outpatient SOCORRO WOOD [id number] Yara 00:00:00 00:00:00 Seybol d 2022-07-01 2022-07-01 Outpatient MARCUS SEYMOUR [id number] Yara 10:30:00 10:30:00 Seybol d 2022-07-01 2022-07-01 Outpatient YARA KNUTSON [id number] Yara 00:00:00 00:00:00 YELITZA Seybol d 2022-06-28 2022-06-28 Outpatient YARA CRUZ [id number] Yara 00:00:00 00:00:00 TERRY Seybol d 2022-06-23 2022-06-23 Outpatient YARA CRUZ [id number] Yara 00:00:00 00:00:00 TERRY Seybol d 2022-06-11 2022-06-11 Outpatient NORM NETTLES [id number] Yara 00:00:00 00:00:00 MD QING Seybol d 2022-06-10 2022-06-10 Outpatient MARCUS SEYMOUR [id number] Yara 00:00:00 00:00:00 Seybol d 2022-06-09 2022-06-09 Outpatient YARA KWAN [id number] Yara 11:00:00 11:00:00 CHRISTOS Seybol d 2022-06-08 2022-06-08 Outpatient SOCORRO WOOD YARA NETTLES [id number] Yara 00:00:00 00:00:00 Seybol d 2022-06-07 2022-06-07 Outpatient LAB90 YARA NETTLES [id number] Yara 14:40:00 14:40:00 Seybol d 2022-06-03 2022-06-03 Outpatient LAB47 YARA NETTLES [id number] Yara 17:35:00 17:35:00 Seybol d 2022-06-03 2022-06-03 Outpatient YARA NETTLES [id number] Yara 15:25:00 15:25:00 Seybol d 2022-06-03 2022-06-03 Outpatient YARA KIM [id number] Yara 15:10:00 15:10:00 DARRELL Seybol d 2022-06-03 2022-06-03 Outpatient MARCUS SEYMOUR [id number] Yara 00:00:00 00:00:00 Seybol d 2022-06-03 2022-06-03 Outpatient NORM NETTLES [id number] Yara 00:00:00 00:00:00 MD QING Seybol d 2022-06-02 2022-06-02 Outpatient SOCORRO WOOD [id number] Yara 00:00:00 00:00:00 Seybol d 2022-06-02 2022-06-02 Outpatient YARA CHAPA [id number] Yara 00:00:00 00:00:00 OC Seyb old 2022-06-01 2022-06-01 Outpatient YARA KIM [id number] Yara 00:00:00 00:00:00 DARRELL Seybol d 2022-05-24 2022-05-24 Outpatient YARA CRUZ [id number] Yara 00:00:00 00:00:00 TERRY Seybol d 2022-05-20 2022-05-20 Outpatient MARCUS SEYMOUR YARA [id number] Yara 13:30:00 13:30:00 Seybol d 2022-05-18 2022-05-18 Outpatient ANGIE YARA NETTLES [id number] Yara 14:15:00 14:15:00 CHELSEA Seybo ld 2022-05-12 2022-05-12 Outpatient NORM YARA NETTLES [id number] Yara 00:00:00 00:00:00 MD QING Seybol d 2022-05-11 2022-05-11 Outpatient GARRETJeferson NETTLES [id number] Yara 00:00:00 00:00:00 MD QING Seybol d 2022-05-08 2022-05-08 Outpatient SOCORRO WOOD [id number] Yara 00:00:00 00:00:00 Seybol d 2022-05-01 2022-05-01 Outpatient SOCORRO WOOD [id number] Yara 00:00:00 00:00:00 Seybol d 2022-04-23 2022-04-23 Outpatient NANCYYARA [id number] Yara 00:00:00 00:00:00 TERRY Seybol d 2022-02-24 2022-02-24 Outpatient MARCUS SEYMOUR YARA NETTLES [id number] Yara 00:00:00 00:00:00 Seybol d 2022-02-09 2022-02-09 Outpatient YARA DUKES [id number] Yara 00:00:00 00:00:00 JOHN Seybol d 2022-01-26 2022-01-26 Outpatient EDWARDOMONIQUEJeferson NETTLES [id number] Yara 00:00:00 00:00:00 MD QING Seybol d 2022-01-22 2022-01-22 Office Cristian Justin 1.2.840.114 [id number] Yara 10:30:00 11:00:00 Visit Giovanna Ochoa [id number] Se john 1.2.7.2.686 [id number] 2022-01-13 2022-01-13 Outpatient DARYA HART [id number] Yara 08:15:00 08:15:00 Seybol d 2021-12-25 2021-12-25 Outpatient TRED47 YARA NETTLES [id number] Yara 15:15:00 15:15:00 Seybol d 2021-12-25 2021-12-25 Office Marcus Seymour .2.840.114 1 [id number] Yara 14:40:00 15:00:00 Visit 350.1.13.13 Se ybold 1.2.7.2.686 [id number] 2021-12-22 2021-12-22 Outpatient YARA DUKES [id number] Yara 00:00:00 00:00:00 JOHN Seybol d 2021-12-14 2021-12-14 Telemedici DARNELL SOCORRO SILVIA .2.840.114 [id number] Yara 14:00:00 14:00:00 ne [id number] Se ybold [id number] [id number] 2021-12-14 2021-12-14 Outpatient BLAYNE YARA NETTLES [id number] Yara 00:00:00 00:00:00 CHUCKY Seyb old 2021-12-09 2021-12-09 Outpatient DUKESYARA BARNES [id number] Yara 00:00:00 00:00:00 JOHN Seybol d 2021-12-07 2021-12-07 Outpatient YARA NETTLES [id number] Yara 13:30:00 13:30:00 Seybol d 2021-12-03 2021-12-03 Outpatient YARA NETTLES [id number] Yara 13:30:00 13:30:00 Seybol d 2021-11-25 2021-11-25 Outpatient DARAY HART YARA NETTLES [id number] Yara 00:00:00 00:00:00 Seybol d 2021-11-16 2021-11-16 Office LINDA Adams .2.840.114 [id number] Yara 14:15:00 14:30:00 Visit Chelsea 350.1.13.13 S eybold 1.2.7.2.686 [id number] 2021-11-16 2021-11-[address] YARA NETTLES [id number] Yara 07:00:00 07:00:00 Seybol d 2021-10-26 2021-10-26 Office LINDA Kim 1.2.840.114 [id number] Yara 13:40:00 14:00:00 Visit Darrell Morales 350.1.13.13 Seybold 1.2.7.2.686 [id number] 2021-10-14 2021-10-14 Outpatient YARA DUKES [id number] Yara 00:00:00 00:00:00 JOHN Seybol d 2021-10-12 2021-10-12 Office Socorro Wood 1.2.840.114 [id number] Yara 14:00:00 14:30:00 Visit Susu 350.1.13.13 Se ybold 1.2.7.2.686 [id number] 2021-09-30 2021-09-30 Outpatient YARA SHARP [id number] Yara 12:30:00 12:30:00 SYDNI Seybol d 2021-09-29 2021-09-29 Outpatient NORM NETTLES [id number] Yara 00:00:00 00:00:00 MD QING Seybol d 2021-09-15 2021-09-15 Office LINDA Dukes 1.2.840.114 [id number] Yara 13:45:00 14:15:00 Visit John Peter 350.1.13.13 Seybold 1.2.7.2.686 [id number] 2021-08-14 2021-08-14 Outpatient YARA CISNEROS [id number] Yara 11:15:00 11:15:00 CHUCKY Seyb old 2021-08-12 2021-08-12 Outpatient YARA CRUZ [id number] Yara 00:00:00 00:00:00 TERRY Seybol d 2021-08-03 2021-08-03 Outpatient YARA HYATT [id number] Yara 14:15:00 14:15:00 CIRILO Seybo ld 2021-07-30 2021-07-30 Outpatient DURAL, LORENE YARA NETTLES [id number] Yara 00:00:00 00:00:00 Seybol d 2021-07-28 2021-07-28 Outpatient ESTEFANIACHRISTOFERTAMARA YARA NETTLES [id number] Yara 00:00:00 00:00:00 MD QING Seybol d 2021-07-27 2021-07-27 Outpatient DURAL, LORENE NETTLES [id number] Yara 00:00:00 00:00:00 Seybol d 2021-07-17 2021-07-17 Outpatient YARA CRUZ [id number] Yara 00:00:00 00:00:00 TERRY Seybol d 2021-07-12 2021-07-12 Outpatient YARA CRUZ [id number] Yara 00:00:00 00:00:00 TERRY Seybol d 2021-07-07 2021-07-07 Outpatient YARA CRUZ [id number] Yara 00:00:00 00:00:00 TRERY Seybol d 2021-07-01 2021-07-01 Outpatient YARA SOUTH [id number] Yara 12:15:00 12:15:00 TRINA Seybol d 2021-06-30 2021-06-30 Outpatient YARA CRUZ [id number] Yara 00:00:00 00:00:00 TERRY Seybol d 2021-06-22 2021-06-22 Office RADHA Cruz 1.2.840.114 [id number] Yara 14:30:00 15:15:00 Visit Terry NICHOLAS 350.1.13.13 Seybmary 1.2.7.2.686 [id number] 2021-06-22 2021-06-22 Outpatient LAB68 YARA NETTLES [id number] Yraa 13:50:00 13:50:00 Seybol d 2021-06-15 2021-06-15 Outpatient YARA DAVENPORT [id number] Yara 00:00:00 00:00:00 FLAQUITO Seybol d 2021-06-15 2021-06-15 Outpatient YARA CRUZ [id number] Yara 00:00:00 00:00:00 TERRY Seybol d 2021-06-05 2021-06-05 Outpatient NORM YARA NETTLES [id number] Yara 00:00:00 00:00:00 MD QING Seybol d 2021-05-30 2021-05-30 Outpatient LORENE SOLORZANO [id number] Yara 00:00:00 00:00:00 Seybol d 2021-05-19 2021-05-19 Outpatient YARA NETTLES [id number] Yara 15:45:00 15:45:00 Seybol d 2021-05-18 2021-05-18 Outpatient YARA LINK [id number] Yara 14:45:00 14:45:00 SOURAV Seybol d 2021-05-16 2021-05-16 Outpatient YARA CRUZ [id number] Yara 00:00:00 00:00:00 TERRY Seybol d 2021-05-12 2021-05-12 Outpatient YARA CRUZ [id number] Yara 09:00:00 09:00:00 TERRY Seybol d 2021-05-06 2021-05-06 Outpatient YARA PALUMBO [id number] Yara 15:15:00 15:15:00 CHRISTOPHER Se ybold 2021-05-04 2021-05-04 Outpatient YARA SOUTH [id number] Yara 13:30:00 13:30:00 TRINA Seybol d 2021-04-28 2021-04-28 Outpatient YARA SOUTH [id number] Yara 12:30:00 12:30:00 TRINA Seybol d 2021-04-22 2021-04-22 Outpatient YARA PALUMBO [id number] Yara 10:30:00 10:30:00 CHRISTOPHER Se ybold 2021-04-17 2021-04-17 Outpatient YARA CRUZ [id number] Yara 00:00:00 00:00:00 TERRY Seybol d 2021-04-15 2021-04-15 Outpatient NANCY, YARA NETTLES [id number] Yara 00:00:00 00:00:00 TERRY Seybol d 2021-04-15 2021-04-15 Outpatient QUEVEDO, YARA NETTLES [id number] Yara 00:00:00 00:00:00 LINETTE Seybol d 2021-04-11 2021-04-11 Outpatient NANCY, YARA NETTLES [id number] Yara 00:00:00 00:00:00 TERRY Seybol d 2021-04-10 2021-04-10 Outpatient NANCY, YARA NETTLES [id number] Yara 00:00:00 00:00:00 TERRY Seybol d 2021-04-09 2021-04-09 Outpatient NANCY YARA NETTLES [id number] Yara 00:00:00 00:00:00 TERRY Seybol d 2021-04-01 2021-04-01 Outpatient YARA NETTLES [id number] Yara 14:15:00 14:15:00 Seybol d 2021-04-01 2021-04-01 Outpatient YARA NETTLES [id number] Yara 14:10:00 14:10:00 Seybol d 2021-04-01 2021-04-01 Office Dural, Lorene RYDER 1.2.840.114 [id number] Yara 13:29:41 13:59:41 [facility] 350.1.13.13 ybold [id number] [id number] 2021-03-12 2021-03-12 Outpatient NANCY YARA NETTLES [id number] Yara 00:00:00 00:00:00 TERRY Seybol d 2021-03-11 2021-03-11 Outpatient NANCY, YARA NETTLES [id number] Yara 00:00:00 00:00:00 TERRY Seybol d 2021-03-09 2021-03-09 Outpatient DCW34-EQU YARA NETTLES [id number] Yara 14:30:00 14:30:00 Seybol d 2021-03-092021-03-09 Office [facility] 1.2.840.114 [id number] Yara 13:54:34 14:09:34 Visit [facility] [id number] Se ybold AND 1.2.7.2.686 DIAGNOSTI [id number] [place] 0 2021-03-03 2021-03-03 Outpatient YARA CRUZ [id number] Yara 10:00:00 10:00:00 TERRY Seybol d 2021-02-25 2021-02-25 [facility] 1.2.840.114 [id number] Yara 13:03:25 13:18:25 Visit Brigid RESENDIZ 350.1.13.13 Se ybold [id number] [id number] 2021-02-24 2021-02-24 Outpatient YARA CRUZ [id number] Yara 00:00:00 00:00:00 TERRY Seybol d 2021-02-04 2021-02-04 Outpatient SIDIQ, YARA NETTLES [id number] Yara 10:30:00 10:30:00 HOMAYON Seybol d 2021-01-19 2021-01-19 Outpatient AZIZ, CARROLBA YARA NETTLES [id number] Yara 15:00:00 15:00:00 Seybol d 2021-01-18 2021-01-18 Outpatient YARA CRUZ [id number] Yara 00:00:00 00:00:00 TERRY Seybol d 2021-01-15 2021-01-15 Outpatient NANCYYARA [id number] Yara 00:00:00 00:00:00 TERRY Seybol d 2021-01-05 2021-01-05 Outpatient NANCYYARA [id number] Yara 00:00:00 00:00:00 TERRY Seybol d 2020-12-07 2020-12-07 Outpatient YARA CRUZ [id number] Yara 00:00:00 00:00:00 TERRY Seybol d 2020-12-04 2020-12-04 Outpatient LAB68 YARA NETTLES [id number] Yara 15:00:00 15:00:00 Seybol d 2020-12-02 2020-12-02 Outpatient YAO BURK YARA [id number] Yara 00:00:00 00:00:00 Seybol d 2020-12-02 2020-12-02 Outpatient YARA CRUZ YARA [id number] Yara 00:00:00 00:00:00 TERRY Seybol d 2019-09-23 2019-09-23 Emergency [facility] [id number] [facility] 10:37:00 10:37:00 [id number] 2016-12-31 2016-12-31 Emergency [facility] [id number] Memoria 15:08:00 16:46:00 r Micheal 03 l [facility] 2016-12-31 2016-12-31 Emergency [facility] [id number] Memoria 15:08:00 16:46:00 r Micheal 03 l [facility] 2016-12-31 2016-12-31 Outpatient Méndez, [facility] [id number] 10:08:00 11:46:00 Liping 03 2014-08-26 2014-08-26 Outpatient [facility] [id number] [facility] 00:00:00 00:00:00 [id number] Results Test Description Test Time Test Comments Results Result Comments Source BASIC METABOLIC PANEL 2019-09-24 05:02:00 Test Item Value Reference Range Interpretation Comme nts SODIUM (BEAKER) (test code 131 meq/L 135-148 L = 381) POTASSIUM (BEAKER) (test 3.9 meq/L 3.5-5.5 code = 379) CHLORIDE (BEAKER) (test 97 meq/L 98-106 L code = 382) CO2 (BEAKER) (test code = 26 meq/L 20-31 355) BLOOD UREA NITROGEN 11 mg/dL 10-26 (BEAKER) (test code = 354) CREATININE (BEAKER) (test 0.70 mg/dL 0.50-1.20 code = 358) GLUCOSE RANDOM (BEAKER) 81 mg/dL 70-110 (test code = 652) CALCIUM (BEAKER) (test code 8.8 mg/dL 8.5-10.5 = 697) EGFR (BEAKER) (test code = 80 mL/min/1.73 sq m ESTIMATED GFR IS NOT 1092) ACCURATE CRE ATININE CLEARANCE IN NM EDICTING GLOMERULAR FILT RATION RATE. ESTIMATED GFR IS NOT APPLICABLE FOR DIALYSIS PATIENTS. Junior Oracle Dba ID - [id number] W/PLT COUNT & AUTO [id number] 04:35:00 Test Item Value Reference Range Interpretation Comments WHITE BLOOD CELL COUNT (BEAKER) 4.4 K/ L 4.0-10.0 (test code = 775) RED BLOOD CELL COUNT (BEAKER) 3.93 M/ L 4.00-5.00 L (test code = 761) HEMOGLOBIN (BEAKER) (test code = 11.1 GM/DL 12.0-15.5 L 410) HEMATOCRIT (BEAKER) (test code = 33.3 % 36.0-46.0 L 411) MEAN CORPUSCULAR VOLUME (BEAKER) 84.7 fL 82.0-99.0 (test code = 753) MEAN CORPUSCULAR HEMOGLOBIN 28.2 pg 27.0-33.0 (BEAKER) (test code = 751) MEAN CORPUSCULAR HEMOGLOBIN CONC 33.3 GM/DL 32.0-36.0 (BEAKER) (test code = 752) RED CELL DISTRIBUTION WIDTH 13.6 % 12.0-15.0 (BEAKER) (test code = 412) PLATELET COUNT (BEAKER) (test 356 K/CU MM 150-430 code = 756) MEAN PLATELET VOLUME (BEAKER) 8.0 fL 6.0-11.5 (test code = 754) NUCLEATED RED BLOOD CELLS 0 /100 WBC 0-0 (BEAKER) (test code = 413) NEUTROPHILS RELATIVE PERCENT 49 % (BEAKER) (test code = 429) LYMPHOCYTES RELATIVE PERCENT 33 % (BEAKER) (test code = 430) MONOCYTES RELATIVE PERCENT 14 % (BEAKER) (test code = 431) EOSINOPHILS RELATIVE PERCENT 4 % (BEAKER) (test code = 432) BASOPHILS RELATIVE PERCENT 1 % (BEAKER) (test code = 437) NEUTROPHILS ABSOLUTE COUNT 2.14 K/ L 1.80-8.00 (BEAKER) (test code = 670) LYMPHOCYTES ABSOLUTE COUNT 1.43 K/ L 1.48-4.50 L (BEAKER) (test code = 414) MONOCYTES ABSOLUTE COUNT (BEAKER) 0.61 K/ L 0.00-1.30 (test code = 415) EOSINOPHILS ABSOLUTE COUNT 0.16 K/ L 0.00-0.50 (BEAKER) (test code = 416) BASOPHILS ABSOLUTE COUNT (BEAKER) 0.04 K/ L 0.00-0.20 (test code = 417) IMMATURE GRANULOCYTES-RELATIVE 1 % 0-0 H PERCENT (BEAKER) (test code = 2801) SODIUM, RANDOM [id number] 20:41:00 Test Item Value Reference Range Interpretation Comments SODIUM URINE (BEAKER) (test code = 57 meq/L 243) Reference Range: No NormalsOperator ID - [id number], [id number] 20:22:00 Test Item Value Reference Range Interpretation Comments OSMOLALITY URINE (BEAKER) (test 196 mOsm/kg 40-1,400 code = 614) OSMOLALITY, [id number] 18:54:00 Test Item Value Reference Range Interpretation Comments OSMOLALITY, SERUM (BEAKER) (test 269 mOsm/kg 280-303 L code = 615) BASIC METABOLIC [id number] 18:48:00 Test Item Value Reference Range Interpretation Comments SODIUM (BEAKER) 128 meq/L 135-148 L (test code = 381) POTASSIUM (BEAKER) 3.8 meq/L 3.5-5.5 (test code = 379) CHLORIDE (BEAKER) 93 meq/L 98-106 L (test code = 382) CO2 (BEAKER) (test 27 meq/L 20-31 code = 355) BLOOD UREA NITROGEN 12 mg/dL 10-26 (BEAKER) (test code = 354) CREATININE (BEAKER) 0.79 mg/dL 0.50-1.20 (test code = 358) GLUCOSE RANDOM 89 mg/dL 70-110 (BEAKER) (test code = 652) CALCIUM (BEAKER) 8.9 mg/dL 8.5-10.5 (test code = 697) EGFR (BEAKER) (test 70 mL/min/1.73 ESTIMA HEATHER GFR IS code = 1092) sq m NOT ACCURATE CREATININE CLEARANCE IN PREDICTING GLOMERULAR FILTRATION RATE . ESTIMATED GFR I S NOT APPLICABLE FOR DIALYSIS PATIEN TS. Junior Oracle Dba ID - [id number] W/ REFLEX URINE [id number] 13:19:00 Test Item Value Reference Range Interpretation Comments COLOR (BEAKER) (test code = 470) Yellow CLARITY (BEAKER) (test

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
--- NOTE | 2022-10-30 13:19 | RAD REPORT ---
EXAM DESCRIPTION: RAD - Hip Right 2 View - 10/30/2022 12:50 pm CLINICAL HISTORY: PAIN COMPARISON: No comparisons FINDINGS: No acute fracture. No malalignment. No significant focal degenerative changes. IMPRESSION: No acute osseous abnormality involving the right hip.
--- NOTE | 2022-10-30 14:24 | ER ---
Nurse's Notes [facility] Name: Brionna Tee Age: 87 yrs Sex: Female : 1935 Arrival Date: 10/30/2022 Time: 11:43 Bed 17 Private MD: Diagnosis: Contusion of right hip Presentation: 10/30 12:01 Chief complaint: Patient states: R HIP PAIN SINCE FALL FROM BED ON TUESDAY. bp Coronavirus screen: At this time, the client does not indicate any symptoms associated with coronavirus-19. Ebola Screen: No symptoms or risks identified at this time. Initial Sepsis Screen: Does the patient meet any 2 criteria? No. Patient's initial sepsis screen is negative. Does the patient have a suspected source of infection? No. Patient's initial sepsis screen is negative. Risk Assessment: Do you want to hurt yourself or someone else? Patient reports no desire to harm self or others. Onset of symptoms is unknown. 12:01 Method Of Arrival: Wheelchair bp 12:01 Acuity: OTILIA 3 bp Triage Assessment: 12:02 General: Appears uncomfortable, Behavior is calm, cooperative, appropriate for age. bp Pain: Complains of pain in right hip. EENT: No deficits noted. Neuro: No deficits noted. Cardiovascular: No deficits noted. Respiratory: No deficits noted. GI: No signs and/or symptoms were reported involving the gastrointestinal system. : No signs and/or symptoms were reported regarding the genitourinary system. Derm: No deficits noted. Musculoskeletal: No deficits noted. Historical: - Allergies: 12:02 No Known Allergies; bp - Home Meds: 12:02 Lisinopril Oral [Active]; Oxycodone HCl Oral [Active]; Baclofen Oral [Active]; bp fenofibrate oral [Active]; - PMHx: 12:02 Hypertensive disorder; Hypercholesterolemia; Chronic back pain; bp - Immunization history:: Adult Immunizations up to date. - Social history:: Smoking status: Patient denies any tobacco usage or history of. - Family history:: not pertinent. - Hospitalizations: : No recent hospitalization is reported. Screenin:00 [facility] ED Fall Risk Assessment (Adult) Score/Fall Risk Level 3 or more points = High eh3 Risk Oriented to surroundings, Maintained a safe environment, Educated pt \T\ family on fall prevention, incl call for assistance when getting out of bed, Assessed \T\ reinforced patient's understanding of fall precautions, Provided non-skid footwear, Hourly rounding (assess needs \T\ fall precautionary measures) done, Used ambulatory aids as needed (educated on \T\ assisted with), Utilized family, sitter, or virtual automotive service advisor as indicated. Abuse screen: Denies threats or abuse. Denies injuries from another. Nutritional screening: No deficits noted. Tuberculosis screening: No symptoms or risk factors identified. Assessment: 14:00 General: Appears in no apparent distress. uncomfortable, Behavior is calm, cooperative, eh3 appropriate for age. Pain: Complains of pain in right hip. Neuro: Level of Consciousness is awake, alert, obeys commands, Oriented to person, place, time, situation. Cardiovascular: Capillary refill < 3 seconds Patient's skin is warm and dry. Respiratory: Airway is patent Respiratory effort is even, unlabored, Respiratory pattern is regular, symmetrical. GI: Abdomen is round non-distended. : No signs and/or symptoms were reported regarding the genitourinary system. EENT: No signs and/or symptoms were reported regarding the EENT system. Derm: Skin is pink, warm \T\ dry. Musculoskeletal: Reports pain in right hip. Vital Signs: 12:01 BP 128 / 59; Pulse 98; Resp 16; Temp 98; Pulse Ox 94% ; bp ED Course: 11:47 Patient arrived in ED. ts1 12:02 Triage completed. bp 12:02 Arm band placed on. bp 12:04 Paresh Cruz MD is Attending Physician. rn 12:52 XRAY Lumbar Spine (3 Views) In Process Unspecified. EDMS 12:52 XRAY Hip RIGHT 2 view In Process Unspecified. EDMS 12:52 XRAY Pelvis In Process Unspecified. EDMS 14:00 Patient has correct armband on for positive identification. Bed in low position. Call eh3 light in reach. Side rails up X2. Adult w/ patient. 14:09 Paula Batista, RN is Primary Nurse. eh3 14:30 No provider procedures requiring assistance completed. Patient did not have IV access eh3 during this emergency room visit. Administered Medications: No medications were administered Medication: 14:30 VIS not applicable for this client. eh3 Outcome: 14:23 Discharge ordered by . rn 14:30 Discharged to home via wheelchair, with family. eh3 14:30 Condition: stable 14:30 Discharge instructions given to patient, family, Instructed on discharge instructions, follow up and referral plans. medication usage, Demonstrated understanding of instructions, follow-up care, medications, Prescriptions given X 1. 14:35 Patient left the ED. 3 Signatures: Dispatcher [employer] EDMS Paresh Cruz MD MD rn Peltier, Brian, RN RN bp Hall, Erin, RN RN 3 Rena De La Fuente PAS PAS ts1
--- NOTE | 2022-10-30 14:24 | EDPHYS ---
Physician Documentation [facility] Name: Brionna Tee Age: 87 yrs Sex: Female : 1935 Arrival Date: 10/30/2022 Time: 11:43 Bed 17 Private MD: ED Physician Paresh Cruz HPI: 10/30 13:13 This 87 yrs old Female presents to ER via Wheelchair with complaints of Fall Injury. rn 13:13 Details of fall: The patient fell from a supine position. rn 13:14 Onset: The symptoms/episode began/occurred 2 day(s) ago. Associated injuries: The rn patient sustained right hip. Severity of symptoms: At their worst the symptoms were mild, in the emergency department the symptoms are unchanged. The patient has not experienced similar symptoms in the past. The patient has not recently seen a physician. Reports fall from bed 2 days ago, + pain to right posterior/lateral hip region, mild low back pain but has had back pain in past. Hit left elbow but denies pain. . Historical: - Allergies: 12:02 No Known Allergies; bp - Home Meds: 12:02 Lisinopril Oral [Active]; Oxycodone HCl Oral [Active]; Baclofen Oral [Active]; bp fenofibrate oral [Active]; - PMHx: 12:02 Hypertensive disorder; Hypercholesterolemia; Chronic back pain; bp - Immunization history:: Adult Immunizations up to date. - Social history:: Smoking status: Patient denies any tobacco usage or history of. - Family history:: not pertinent. - Hospitalizations: : No recent hospitalization is reported. ROS: 13:14 Constitutional: Negative for fever, chills, and weight loss, Neck: Negative for injury, rn pain, and swelling, Cardiovascular: Negative for chest pain, palpitations, and edema, Respiratory: Negative for shortness of breath, cough, wheezing, and pleuritic chest pain, Abdomen/GI: Negative for abdominal pain, nausea, vomiting, diarrhea, and constipation, Back: + low back pain MS/Extremity: + right hip pain and injury Skin: Negative for injury, rash, and discoloration, Neuro: Negative for headache, weakness, numbness, tingling, and seizure. Exam: 13:14 Constitutional: This is a well developed, well nourished patient who is awake, alert, rn and in no acute distress. Head/Face: Normocephalic, atraumatic. Neck: No midline cervical tenderness Cardiovascular: Regular rate and rhythm. No pulse deficits. Respiratory: No increased work of breathing, no retractions or nasal flaring. Abdomen/GI: soft, non-tender Skin: Warm, dry MS/ Extremity: Pulses equal, no cyanosis. Neurovascular intact. Full, normal range of motion. Equal circumference. Neuro: Awake and alert, GCS 15 Vital Signs: 12:01 BP 128 / 59; Pulse 98; Resp 16; Temp 98; Pulse Ox 94% ; bp MDM: 12:04 Patient medically screened. rn 14:22 Differential diagnosis: contusion, fracture, sprain, strain. Data reviewed: vital rn signs, nurses notes, radiologic studies, plain films, and as a result, I will discharge patient. Counseling: I had a detailed discussion with the patient and/or guardian regarding: the historical points, exam findings, and any diagnostic results supporting the discharge/admit diagnosis, radiology results, the need for outpatient follow up, to return to the emergency department if symptoms worsen or persist or if there are any questions or concerns that arise at home. Special discussion: I discussed with the patient/guardian in detail that at this point there is no indication for admission to the hospital. It is understood, however, that if the symptoms persist or worsen the patient needs to return immediately for re-evaluation. Based on the history and exam findings, there is no indication for further emergent testing or inpatient evaluation. I discussed with the patient/guardian the need to see the back specialist for further evaluation of the symptoms. ED course: Xrays without acute fracture/dislocation, questionable loose screw L3, patient will f/u with her back surgeon for that as not causing any acute problems. Will dc home with muscle relaxer and return precautions. . 10/30 12:08 Order name: XRAY Lumbar Spine (3 Views); Complete Time: 14:07 rn 10/30 12:08 Order name: XRAY Hip RIGHT 2 view; Complete Time: 14:07 rn 10/30 12:08 Order name: XRAY Pelvis; Complete Time: 14:07 rn Administered Medications: No medications were administered Disposition Summary: 10/30/22 14:23 Discharge Ordered Location: Home rn Problem: new rn Symptoms: have improved rn Condition: Stable rn Diagnosis - Contusion of right hip rn Followup: rn - With: Private Physician - When: As needed - Reason: Recheck today's complaints, Re-evaluation by your physician Discharge Instructions: - Discharge Summary Sheet rn - Contusion rn Forms: - Medication Reconciliation Form rn - Thank You Letter rn - Antibiotic rubber turner - Prescription Opioid Use rn Prescriptions: - Cyclobenzaprine 5 mg Oral Tablet - take 1 tablet by ORAL route 3 times per day As needed; 15 tablet; Refills: 0, rn Product Selection Permitted Signatures: Dispatcher [employer] Paresh Ortiz MD MD rn Peltier, Brian, RN RN bp
[2022-10-30 15:17] VITALS: BP 128/59; TEMP 98; O2SAT 94
== END 2022-10-30 14:35 | disposition home or self-care (01) ==
LOC: ER 11:43
DX: S70.01XA Contusion of right hip, initial encounter (principal); M54.50 Low back pain, unspecified; I10 Essential (primary) hypertension; E78.00 Pure hypercholesterolemia, unspecified
CPT/HCPCS: 72100; 72170; 99283

== ENCOUNTER 2022-11-05 11:18 | Emergency (ER) | payer OTHER ==
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
[2022-11-05] MEDS ORDERED: HYDROCODONE/APAP 10/325 TAB ONE (12:12)
--- NOTE | 2022-11-05 12:13 | RAD REPORT ---
EXAM DESCRIPTION: CT - Pelvis Wo Cont - 11/05/2022 11:59 am CLINICAL HISTORY: pain sp fall neg xray COMPARISON: No comparisons FINDINGS: Nondisplaced fractures involving the right and left sacral wings. The fractures are nondis placed. No other pelvic fractures are identified. No coccyx fractures seen. Both femoral heads are lo cated. Moderate colonic stool. Fusion hardware in the lower spine. IMPRESSION: Nondisplaced acute bilateral sacral alar fractures.
--- NOTE | 2022-11-05 12:58 | EDPHYS ---
Physician Documentation [facility] Name: Brionna Tee Age: 87 yrs Sex: Female : 1935 Arrival Date: 11/05/2022 Time: 11:18 Bed Treatment Private MD: ED Physician Samy Vieyra HPI: 11/05 11:42 This 87 yrs old Female presents to ER via Wheelchair with complaints of Back Pain. jr11 11:42 Patient is an 87-year-old female who has a history of chronic back pain on oxycodone, jr11 she takes oxycodone 10 every 6 hours, last 1 being 4 hours ago. Patient is here for increasing pain over her ischium sacrum, she fell 8 days ago, imaging was negative. Patient is here because of increasing pain, no neurologic complaints, no saddle anesthesia patient otherwise denies any review of systems no urinary complaints no fever.. Historical: - Allergies: 11:29 No Known Allergies; ld1 - PMHx: 11:29 chronic back pain; Hypercholesterolemia; Hypertensive disorder; ld1 - PSHx: 11:29 Total abdominal hysterectomy; ld1 - Immunization history:: Adult Immunizations up to date, Client reports having NOT received the Covid vaccine. - Social history:: Smoking status: Patient denies any tobacco usage or history of. Patient/guardian denies using alcohol. ROS: 11:42 All other systems are negative. jr11 Exam: 11:42 Constitutional: This is a well developed, well nourished patient who is awake, alert, jr11 and in no acute distress. Head/Face: Normocephalic, atraumatic. Eyes: Extra-ocular motions intact. Lids and lashes normal. Conjunctiva and sclera are non-icteric and not injected. Cornea within normal limits. Periorbital areas with no swelling, redness, or edema. ENT: Nares patent. No nasal discharge, no septal abnormalities noted. Oropharynx with no redness, swelling, or masses, exudates, or evidence of obstruction, uvula midline. Mucous membranes moist. Neck: Trachea midline, no thyromegaly or masses palpated, and no cervical lymphadenopathy. Supple, full range of motion without nuchal rigidity, or vertebral point tenderness. No Meningismus. Chest/axilla: Normal chest wall appearance and motion. Nontender with no deformity. No lesions are appreciated. Cardiovascular: Regular rate and rhythm with a normal S1 and S2. No gallops, murmurs, or rubs. Normal PMI, no JVD. No pulse deficits. Respiratory: Lungs have equal breath sounds bilaterally, clear to auscultation and percussion. No rales, rhonchi or wheezes noted. No increased work of breathing, no retractions or nasal flaring. Abdomen/GI: Soft, non-tender, with normal bowel sounds. No distension or tympany. No guarding or rebound. No evidence of tenderness throughout. Back: No spinal tenderness. No costovertebral tenderness. Full range of motion except she has tenderness to palpation over sacrum into the coccyx without any deformity. Neurovascularly intact distally. Vital Signs: 11:29 BP 126 / 60; Pulse 75; Resp 18; Temp 98.2(TE); Pulse Ox 100% on R/A; Weight 60.33 kg; ld1 Height 5 ft. 5 in. ; Pain 9/10; 13:04 BP 124 / 62; Pulse 64; Resp 16; Pulse Ox 100% on R/A; mb9 11:29 Body Mass Index 22.13 (60.33 kg, 165.1 cm) ld1 11:29 Pain Scale: Adult ld1 MDM: 11:39 Patient medically screened. [facility] 11:42 Differential diagnosis: arthritis, Fracture Ligament Injury spinal injury, sprain, jr11 Patient is an 87-year-old female that fell 8 days ago, x-ray negative, given worsening pain, will CT. Patient does have a history of acute on chronic back pain on oxycodone. We will give a Argonne 10 for pain. Data reviewed: vital signs, nurses notes. 12:54 ED course: Patient with a sacral ala fracture, will [place] orthopedics [place] ED course: norco worked better, will rx 12. 12:54 ED course: 6 CT image interpreted and viewed by me shows sacral alar flat fracture. No jr displacement. 11/05 11:39 Order name: CT Pelvis wo Cont; Complete Time: 12:24 [facility] Administered Medications: 12:09 Drug: Argonne PO 10 mg-325 mg 1 tabs Route: PO; mb9 12:27 Follow up: Response: No adverse reaction mb9 Disposition Summary: 11/05/22 12:57 Discharge Ordered Location: Home jr11 Condition: Stable jr11 Diagnosis - sacral ala fracture, fall jr11 Followup: jr11 - With: Romario Hernandez MD - When: 2 - 3 days - Reason: Recheck today's complaints Followup: jr11 - With: Esteban Stevenson DO - When: 1 - 2 days - Reason: Continuance of care Discharge Instructions: - Discharge Summary Sheet jr11 - Simple Pelvic Fracture, Adult jr11 Forms: - Medication Reconciliation Form jr11 - Thank You Letter jr11 - Antibiotic Education jr11 - Prescription Opioid Use jr11 Signatures: Dispatcher [employer] EDRoula Gamez RN RN ld1 Samy Vieyra MD MD jr11 Elyssa Chaney RN RN mb9
--- NOTE | 2022-11-05 12:58 | ER ---
Nurse's Notes [facility] Name: Brionna Tee Age: 87 yrs Sex: Female : 1935 Arrival Date: 11/05/2022 Time: 11:18 Bed Treatment Private MD: Diagnosis: sacral ala fracture, fall Presentation: 11/05 11:29 Chief complaint: Patient states: Fell 1 week ago. Came to ER - seen for fall. Injury to ld1 L2/L3/hip. Pt reports extreme pain - unable to stand without pain. Coronavirus screen: At this time, the client does not indicate any symptoms associated with coronavirus-19. Ebola Screen: No symptoms or risks identified at this time. Initial Sepsis Screen: Does the patient meet any 2 criteria? No. Patient's initial sepsis screen is negative. Does the patient have a suspected source of infection? No. Patient's initial sepsis screen is negative. Risk Assessment: Do you want to hurt yourself or someone else? Patient reports no desire to harm self or others. Onset of symptoms was November 05, 2022. 11:29 Method Of Arrival: Wheelchair ld1 11:29 Acuity: OTILIA 4 ld1 Triage Assessment: 11:31 General: Appears in no apparent distress. uncomfortable, Behavior is calm, cooperative, ld1 appropriate for age. Pain: Complains of pain in back Pain does not radiate. Pain currently is 9 out of 10 on a pain scale. Quality of pain is described as throbbing. EENT: No signs and/or symptoms were reported regarding the EENT system. Neuro: Level of Consciousness is awake, alert, obeys commands, Oriented to person, place, time, situation. Cardiovascular: Capillary refill < 3 seconds Patient's skin is warm and dry. Respiratory: Airway is patent Respiratory effort is even, unlabored. GI: Abdomen is flat, non-distended. : No signs and/or symptoms were reported regarding the genitourinary system. Derm: No signs and/or symptoms reported regarding the dermatologic system. Musculoskeletal: No signs and/or symptoms reported regarding the musculoskeletal system. Historical: - Allergies: No Known Allergies; ld1 - PMHx: chronic back pain; Hypercholesterolemia; Hypertensive disorder; ld1 - PSHx: Total abdominal hysterectomy; ld1 - Immunization history:: Adult Immunizations up to date, Client reports having NOT received the Covid vaccine. - Social history:: Smoking status: Patient denies any tobacco usage or history of. Patient/guardian denies using alcohol. Screenin:18 [facility] ED Fall Risk Assessment (Adult) History of falling in the last 3 months, mb9 including since admission Yes- single mechanical fall (1 pt) Confusion or Disorientation No (0 pts) Intoxicated or Sedated No (0 pts) Impaired Gait Yes (1 pt) Mobility Assist Device Used Yes (1 pt) Altered Elimination No (0 pt) Score/Fall Risk Level 3 or more points = High Risk Oriented to surroundings, Maintained a safe environment, Educated pt \T\ family on fall prevention, incl call for assistance when getting out of bed. Abuse screen: Denies threats or abuse. Nutritional screening: No deficits noted. Tuberculosis screening: No symptoms or risk factors identified. Assessment: 12:18 Reassessment: No changes from previously documented assessment. Patient and/or family mb9 updated on plan of care and expected duration. Pain level reassessed. Patient is alert, oriented x 3, equal unlabored respirations, skin warm/dry/pink. Vital Signs: 11:29 BP 126 / 60; Pulse 75; Resp 18; Temp 98.2(TE); Pulse Ox 100% on R/A; Weight 60.33 kg; ld1 Height 5 ft. 5 in. ; Pain 9/10; 13:04 BP 124 / 62; Pulse 64; Resp 16; Pulse Ox 100% on R/A; mb9 11:29 Body Mass Index 22.13 (60.33 kg, 165.1 cm) ld1 11:29 Pain Scale: Adult ld1 ED Course: 11:21 Patient arrived in ED. mr 11:31 Triage completed. ld1 11:31 Samy Vieyra MD is Attending Physician. jr11 11:31 Arm band placed on right wrist. ld1 12:00 CT Pelvis wo Cont In Process Unspecified. EDMS 12:03 Elyssa Chaney RN is Primary Nurse. mb9 12:18 Bed in low position. Call light in reach. Side rails up X 1. Client placed on mb9 continuous cardiac and pulse oximetry monitoring. NIBP monitoring applied. 12:18 No provider procedures requiring assistance completed. Patient did not have IV access mb9 during this emergency room visit. 12:57 Romario Hernandez MD is Referral Physician. jr11 12:57 Esteban Stevenson DO is Referral Physician. jr11 Administered Medications: 12:09 Drug: Clinton PO 10 mg-325 mg 1 tabs Route: PO; mb9 12:27 Follow up: Response: No adverse reaction mb9 Medication: 12:18 VIS not applicable for this client. mb9 Outcome: 12:57 Discharge ordered by . jr11 13:05 Discharged to home ambulatory. mb9 13:05 Condition: stable 13:05 Discharge instructions given to patient, Instructed on discharge instructions, follow up and referral plans. Demonstrated understanding of instructions, follow-up care, medications, Prescriptions given X 1. 13:05 Patient left the ED. mb9 Signatures: Dispatcher [employer] Elyssa Schilling Lauren, RN RN ld1 Samy Vieyra MD MD jr11 Elyssa Chaney RN RN mb9
[2022-11-05 13:24] VITALS: BP 124/62; O2SAT 100
[2022-11-05 13:26] VITALS: TEMP 98.2
== END 2022-11-05 13:05 | disposition home or self-care (01) ==
LOC: ER 11:18
DX: S32.10XA Unspecified fracture of sacrum, initial encounter for closed fracture (principal); W19.XXXA Unspecified fall, initial encounter; I10 Essential (primary) hypertension
CPT/HCPCS: 72192; 99283

== ENCOUNTER 2022-11-14 14:36 | Emergency (ER) | payer OTHER ==
--- OUTSIDE RECORDS SUMMARY | 2022-11-14 14:43 | XMS REPORT | Continuity of Care Document ---
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 Outpatient YARA JUSTIN [id number] Yara 00:00:00 00:00:00 GIOVANNA Seybol d 2022-10-27 2022-10-27 Outpatient YARA CRUZ [id number] Yara 00:00:00 00:00:00 TERRY Seybol d 2022-10-27 2022-10-27 Outpatient DEANNA GOMEZ [id number] Yara 00:00:00 00:00:00 Seybol d 2022-10-27 2022-10-27 Outpatient YARA CRUZ [id number] Yara 00:00:00 00:00:00 TERRY Seybol d 2022-10-26 2022-10-26 Outpatient YARA JUSTIN [id number] Yara 00:00:00 00:00:00 GIOVANNA Seybol d 2022-10-25 2022-10-25 Outpatient ESTEFANIASEYONJeferson NETTLES [id number] Yara 00:00:00 00:00:00 MD QING Seybol d 2022-10-14 2022-10-14 Outpatient YARA JUSTIN [id number] Yara 00:00:00 00:00:00 GIOVANNA Seybol d 2022-10-13 2022-10-13 Outpatient LAB90 YARA NETTLES [id number] Yara 16:25:00 16:25:00 Seybol d 2022-10-13 2022-10-13 Outpatient YARA JUSTIN [id number] Yara 13:00:00 13:00:00 GIOVANNA Seybol d 2022-10-08 2022-10-08 Outpatient MARCUS SEYMOUR [id number] Yara 13:00:00 13:00:00 Seybol d 2022-10-07 2022-10-07 Outpatient [facility] YARA NETTLES [id number] Yara 00:00:00 00:00:00 Seybol d 2022-09-28 2022-09-28 Outpatient YARA CRUZ [id number] Yara 00:00:00 00:00:00 TERRY Seybol d 2022-09-20 2022-09-20 Outpatient YARA CRUZ [id number] Yara 00:00:00 00:00:00 TERRY Seybol d 2022-09-17 2022-09-17 Outpatient LAB90 YARA NETTLES [id number] Yara 11:10:00 11:10:00 Seybol d 2022-09-15 2022-09-15 Outpatient LAB90 YARA NETTLES [id number] Yara 11:45:00 11:45:00 Seybol d 2022-09-15 2022-09-15 Outpatient YARA JUSTIN [id number] Yara 10:30:00 10:30:00 GIOVANNA Seybol d 2022-09-07 2022-09-07 Outpatient DARNELL [facility] YARA NETTLES [id number] Yara 00:00:00 00:00:00 Seybol d 2022-08-31 2022-08-31 Outpatient YARA ADAMS [id number] Yara 15:00:00 15:00:00 CHELSEA Seybo ld 2022-08-27 2022-08-27 Outpatient YARA CRUZ [id number] Yara 00:00:00 00:00:00 TERRY Seybol d 2022-08-23 2022-08-23 Outpatient YARA ADAMS [id number] Yara 15:15:00 15:15:00 CHELSEA Seybo ld 2022-08-23 2022-08-23 Outpatient DEANNA GOMEZ [id number] Yara 10:40:00 10:40:00 Seybol d 2022-08-23 2022-08-23 Outpatient DEANNA GOMEZ [id number] Yara 00:00:00 00:00:00 Seybol d 2022-08-09 2022-08-09 Outpatient DEANNA GOMEZ YARA NETTLES [id number] Yara 09:20:00 09:20:00 Seybol d 2022-08-06 2022-08-06 Outpatient [facility] YARA NETTLES [id number] Yara 00:00:00 00:00:00 Seybol d 2022-07-28 2022-07-28 Outpatient YARA CRUZ [id number] Yara 00:00:00 00:00:00 TERRY Seybol d 2022-07-26 2022-07-26 Outpatient YARA CORONA [id number] Yara 00:00:00 00:00:00 BAVASHTIA Seybol d 2022-07-11 2022-07-11 Outpatient [facility] [id number] Yara 00:00:00 00:00:00 Seybol d 2022-07-06 2022-07-06 Outpatient [facility] [id number] Yara 00:00:00 00:00:00 Seybol d 2022-07-01 2022-07-01 Outpatient MARCUS SEYMOUR [id number] Yara 10:30:00 10:30:00 Seybol d 2022-07-01 2022-07-01 Outpatient YARA KNUTSON [id number] Yara 00:00:00 00:00:00 YELITZA Seybol d 2022-06-28 2022-06-28 Outpatient YARA CRUZ [id number] Yara 00:00:00 00:00:00 TERRY Seybol d 2022-06-23 2022-06-23 Outpatient YARA CRUZ [id number] Yara 00:00:00 00:00:00 TERRY Seybol d 2022-06-11 2022-06-11 Outpatient NORM NETTLES [id number] Yara 00:00:00 00:00:00 MD QING Seybol d 2022-06-10 2022-06-10 Outpatient MARCUS SEYMOUR YARA NETTLES [id number] Yara 00:00:00 00:00:00 Seybol d 2022-06-09 2022-06-09 Outpatient YARA KWAN [id number] Yara 11:00:00 11:00:00 CHRISTOS Seybol d 2022-06-08 2022-06-08 Outpatient [facility] [id number] Yara 00:00:00 00:00:00 Seybol d 2022-06-07 2022-06-07 Outpatient LAB90 YARA NETTLES [id number] Yara 14:40:00 14:40:00 Seybol d 2022-06-03 2022-06-03 Outpatient LAB47 YARA NETTLES [id number] Yara 17:35:00 17:35:00 Seybol d 2022-06-03 2022-06-03 Outpatient YARA NETTLES [id number] Yara 15:25:00 15:25:00 Seybol d 2022-06-03 2022-06-03 Outpatient YARA KIM [id number] Yara 15:10:00 15:10:00 DARRELL Seybol d 2022-06-03 2022-06-03 Outpatient XAVIERMARCUS Kumar YARA NETTLES [id number] Yara 00:00:00 00:00:00 Seybol d 2022-06-03 2022-06-03 Outpatient NORM YARA NETTLES [id number] Yara 00:00:00 00:00:00 MD QING Seybol d 2022-06-02 2022-06-02 Outpatient [facility] [id number] Yara 00:00:00 00:00:00 Seybol d 2022-06-02 2022-06-02 Outpatient YARA CHAPA [id number] Yara 00:00:00 00:00:00 OC Seyb old 2022-06-01 2022-06-01 Outpatient YARA KIM [id number] Yara 00:00:00 00:00:00 DARRELL Seybol d 2022-05-24 2022-05-24 Outpatient YARA CRUZ YARA [id number] Yara 00:00:00 00:00:00 TERRY Seybol d 2022-05-20 2022-05-20 Outpatient XAVIERMARCUS Kumar YARA NETTLES [id number] Yara 13:30:00 13:30:00 Seybol d 2022-05-18 2022-05-18 Outpatient ANGIEYARA [id number] Yara 14:15:00 14:15:00 CHELSEA Kev laboy 2022-05-12 2022-05-12 Outpatient ESTEFANIAVERÓNICAJeferson NETTLES [id number] Yara 00:00:00 00:00:00 MD Dakota LONGOybol d 2022-05-11 2022-05-11 Outpatient NORM NETTLES [id number] Yara 00:00:00 00:00:00 MD Dakota LONGOybol susu 2022-05-08 2022-05-08 Outpatient BRUCE WOODE YARA NETTLES [id number] Yara 00:00:00 00:00:00 Seybol d 2022-05-01 2022-05-01 Outpatient [facility] YARA NETTLES [id number] Yara 00:00:00 00:00:00 Seybol d 2022-04-23 2022-04-23 Outpatient NANCY YARA NETTLES [id number] Yara 00:00:00 00:00:00 TERRY Seybol d 2022-02-24 2022-02-24 Outpatient XAVIER, MARCUS NTETLES [id number] Yara 00:00:00 00:00:00 Seybol d 2022-02-09 2022-02-09 Outpatient YARA DUKES [id number] Yara 00:00:00 00:00:00 JOHN Seybol d 2022-01-26 2022-01-26 Outpatient ESTEFANIATAIWOTAMARA NETTLES [id number] Yara 00:00:00 00:00:00 MD QING Seybol d 2022-01-22 2022-01-22 Office Cristian Justin 1.2.840.114 [id number] Yara 10:30:00 11:00:00 Visit Giovanna Ochoa 350.1.13.13 Se ybold 1.2.7.2.686 [id number] 2022-01-13 2022-01-13 Outpatient DARYA HART [id number] Yara 08:15:00 08:15:00 Seybol d 2021-12-25 2021-12-25 Outpatient TRED47 YARA NETTLES [id number] Yara 15:15:00 15:15:00 Seybol d 2021-12-25 2021-12-25 Office Xavier Marcusdestin MCKEON 1.2.840.114 [id number] Yara 14:40:00 15:00:00 Visit 350.1.13.13 Se ybold 1.2.7.2.686 [id number] 2021-12-22 2021-12-22 Outpatient YARA DUKES [id number] Yara 00:00:00 00:00:00 JOHN Seybol d 2021-12-14 2021-12-14 Telemedici [facility] 1.2.840.114 [id number] Yara 14:00:00 14:00:00 ne 350.1.13.13 Se ybold 1.2.7.2.686 [id number] 2021-12-14 2021-12-14 Outpatient YARA CISNEROS [id number] Yara 00:00:00 00:00:00 CHUCKY Seyb old 2021-12-09 2021-12-09 Outpatient YARA DUKES [id number] Yara 00:00:00 00:00:00 JOHN Seybol d 2021-12-07 2021-12-07 Outpatient YARA NETTLES [id number] Yara 13:30:00 13:30:00 Seybol d 2021-12-03 2021-12-03 Outpatient YARA NETTLES [id number] Yara 13:30:00 13:30:00 Seybol d 2021-11-25 2021-11-25 Outpatient DARYA HART [id number] Yara 00:00:00 00:00:00 Seybol d 2021-11-16 2021-11-16 Office AngieLINDA landa 1.2.840.114 [id number] Yara 14:15:00 14:30:00 Visit Chelsea 350.1.13.13 Marsha eybold 1.2.7.2.686 [id number] 2021-11-16 2021-11-[address] YARA NETTLES [id number] Yara 07:00:00 07:00:00 Seybol d 2021-10-26 2021-10-26 Office Julio LINDA 1.2.840.114 [id number] Yara 13:40:00 14:00:00 Visit Darrell Morales 350.1.13.13 Seybold 1.2.7.2.686 [id number] 2021-10-14 2021-10-14 Outpatient YARA DUKES [id number] Yara 00:00:00 00:00:00 JOHN Seybol d 2021-10-12 2021-10-12 Office Socorro Wood 1.2.840.114 [id number] Yara 14:00:00 14:30:00 Visit Susu 350.1.13.13 Se ybold 1.2.7.2.686 [id number] 2021-09-30 2021-09-30 Outpatient YARA SHARP [id number] Yara 12:30:00 12:30:00 SYDNI Seybol d 2021-09-29 2021-09-29 Outpatient NORM NETTLES [id number] Yara 00:00:00 00:00:00 MD QING Seybol d 2021-09-15 2021-09-15 Office LINDA Dukes 1.2.840.114 [id number] Yara 13:45:00 14:15:00 Visit John Peter 350.1.13.13 Seybold 1.2.7.2.686 [id number] 2021-08-14 2021-08-14 Outpatient YARA CISNEROS [id number] Yara 11:15:00 11:15:00 CHUCKY Seyb old 2021-08-12 2021-08-12 Outpatient YARA CRUZ [id number] Yara 00:00:00 00:00:00 TERRY Seybol d 2021-08-03 2021-08-03 Outpatient YARA HYATT [id number] Yara 14:15:00 14:15:00 CIRILO Seybo ld 2021-07-30 2021-07-30 Outpatient DURAL, LORENE NETTLES [id number] Yara 00:00:00 00:00:00 Seybol d 2021-07-28 2021-07-28 Outpatient NORM NETTLES [id number] Yara 00:00:00 00:00:00 MD QING Seybol d 2021-07-27 2021-07-27 Outpatient DURAL, LORENE NETTLES [id number] Yara 00:00:00 00:00:00 Seybol d 2021-07-17 2021-07-17 Outpatient YARA CRUZ [id number] Yara 00:00:00 00:00:00 TERRY Seybol d 2021-07-12 2021-07-12 Outpatient YARA CRUZ [id number] Yara 00:00:00 00:00:00 TERRY Seybol d 2021-07-07 2021-07-07 Outpatient YARA CRUZ [id number] Yara 00:00:00 00:00:00 TERRY Seybol d 2021-07-01 2021-07-01 Outpatient YARA SOUTH [id number] Yara 12:15:00 12:15:00 TRINA Seybol d 2021-06-30 2021-06-30 Outpatient YARA CRUZ [id number] Yara 00:00:00 00:00:00 TERRY Seybol d 2021-06-22 2021-06-22 Office RADHA Cruz 1.2.840.114 [id number] Yara 14:30:00 15:15:00 Visit Terry NICHOLAS 350.1.13.13 Seybold 1.2.7.2.686 [id number] 2021-06-22 2021-06-22 Outpatient LAB68 YARA NETTLES [id number] Yara 13:50:00 13:50:00 Seybol d 2021-06-15 2021-06-15 Outpatient YARA DAVENPORT [id number] Yara 00:00:00 00:00:00 FLAQUITO Seybol d 2021-06-15 2021-06-15 Outpatient YARA CRUZ [id number] Yara 00:00:00 00:00:00 TERRY Seybol d 2021-06-05 2021-06-05 Outpatient NORM NETTLES [id number] Yara 00:00:00 00:00:00 MD QING Seybol d 2021-05-30 2021-05-30 Outpatient LORNEE SOLORZANO [id number] Yara 00:00:00 00:00:00 Seybol d 2021-05-19 2021-05-19 Outpatient YARA NETTLES [id number] Yara 15:45:00 15:45:00 Seybol d 2021-05-18 2021-05-18 Outpatient YARA LINK [id number] Yara 14:45:00 14:45:00 SOURAV Seybol d 2021-05-16 2021-05-16 Outpatient YARA CRUZ [id number] Yara 00:00:00 00:00:00 TERRY Seybol d 2021-05-12 2021-05-12 Outpatient YARA CRUZ [id number] Yara 09:00:00 09:00:00 TERRY Seybol d 2021-05-06 2021-05-06 Outpatient YARA PALUMBO [id number] Yara 15:15:00 15:15:00 CHRISTOPHER Se ybold 2021-05-04 2021-05-04 Outpatient YARA SOUTH [id number] Yara 13:30:00 13:30:00 TRINA Seybol d 2021-04-28 2021-04-28 Outpatient YARA SOUTH [id number] Yara 12:30:00 12:30:00 TRINA Seybol d 2021-04-22 2021-04-22 Outpatient YARA PALUMBO [id number] Yara 10:30:00 10:30:00 DAVINA pruittold 2021-04-17 2021-04-17 Outpatient NANCY, YARA NETTLES [id number] Yara 00:00:00 00:00:00 TERRY Seybol d 2021-04-15 2021-04-15 Outpatient NANCY, YARA NETTLES [id number] Yara 00:00:00 00:00:00 TERRY Seybol d 2021-04-15 2021-04-15 Outpatient QUEVEDO, YARA NETTLES [id number] Yara 00:00:00 00:00:00 LINETTE Seybol d 2021-04-11 2021-04-11 Outpatient NANCY, YARA NETTLES [id number] Yara 00:00:00 00:00:00 TERRY Seybol d 2021-04-10 2021-04-10 Outpatient NANCY YARA NETTLES [id number] Yara 00:00:00 00:00:00 TERRY Seybol d 2021-04-09 2021-04-09 Outpatient NANCY, YARA NETTLES [id number] Yara 00:00:00 00:00:00 TERRY Seybol d 2021-04-01 2021-04-01 Outpatient YARA NETTLES [id number] Yara 14:15:00 14:15:00 Seybol d 2021-04-01 2021-04-01 Outpatient YARA NETTLES [id number] Yara 14:10:00 14:10:00 Seybol d 2021-04-01 2021-04-01 Office Dural, Lorene RYDER 1.2.840.114 [id number] Yara 13:29:41 13:59:41 Visit [facility] 350.1.13.13 Seybold 1.2.7.2.686 [id number] 2021-03-12 2021-03-12 Outpatient NANCYYARA [id number] Yaar 00:00:00 00:00:00 TERRY Seybol d 2021-03-11 2021-03-11 Outpatient NANCY, YARA NETTLES [id number] Yara 00:00:00 00:00:00 TERRY Seybol d 2021-03-09 2021-03-09 Outpatient EWP48-NZL YARA NETTLES [id number] Yara 14:30:00 14:30:00 Seybol d 2021-03-09 2021-03-09 [facility] 1.2.840.114 [id number] Yara 13:54:34 14:09:34 Visit [facility] 350.1.13.13 Se ybold AND 1.2.7.2.686 DIAGNOSTI [id number] [facility] 0 2021-03-03 2021-03-03 Outpatient YARA CRUZ [id number] Yara 10:00:00 10:00:00 TERRY Seybol d 2021-02-25 2021-02-25 [facility] 1.2.840.114 [id number] Yara 13:03:25 13:18:25 Visit Brigid [facility] 350.1.13.13 Se ybold 1.2.7.2.686 [id number] 2021-02-24 2021-02-24 Outpatient YARA CRUZ [id number] Yara 00:00:00 00:00:00 TERRY Seybol d 2021-02-04 2021-02-04 Outpatient SIDIQYARA [id number] Yara 10:30:00 10:30:00 HOMAYON Seybol d 2021-01-19 2021-01-19 Outpatient AZIZ, HIBBA YARA NETTLES [id number] Yara 15:00:00 15:00:00 Seybol d 2021-01-18 2021-01-18 Outpatient YARA CRUZ [id number] Yara 00:00:00 00:00:00 TERRY Seybol d 2021-01-15 2021-01-15 Outpatient YARA CRUZ [id number] Yara 00:00:00 00:00:00 TERRY Seybol d 2021-01-05 2021-01-05 Outpatient YARA CRUZ [id number] Yara 00:00:00 00:00:00 TERRY Seybol d 2020-12-07 2020-12-07 Outpatient YARA CRUZ [id number] Yara 00:00:00 00:00:00 TERRY Seybol d 2020-12-04 2020-12-04 Outpatient LAB68 YARA YARA [id number] Yara 15:00:00 15:00:00 Seybol d 2020-12-02 2020-12-02 Outpatient YAO BURK YARA [id number] Yara 00:00:00 00:00:00 Seybol d 2020-12-02 2020-12-02 Outpatient NANCY YARA YARA [id number] Yara 00:00:00 00:00:00 TERRY Seybol d 2019-09-23 2019-09-23 Emergency [facility] [id number] SL 10:37:00 10:37:00 [id number] 2016-12-31 2016-12-31 Emergency [facility] [id number] Memoria 15:08:00 16:46:00 r Russell 03 l [facility] 2016-12-31 2016-12-31 [facility] [id number] Memoria 15:08:00 16:46:00 r Micheal 03 l [facility] 2016-12-31 2016-12-31 Outpatient Méndez, [facility] [id number] 10:08:00 11:46:00 Liping 03 2014-08-26 2014-08-26 Outpatient [facility] [id number] SLE 00:00:00 00:00:00 [id number] Results Test Description Test Time Test Comments [...] NOT 1092) ACCURATE CRE ATININE CLEARANCE IN LA EDICTING GLOMERULAR FILT RATION RATE. ESTIMATED GFR IS NOT APPLICABLE FOR DIALYSIS PATIENTS. Warehouser ID - [id number] W/PLT COUNT & AUTO [id number] 04:35:00 Test Item Value Reference Range Interpretation [...] (BEAKER) (test code = 2801) SODIUM, RANDOM [id number] 20:41:00 Test Item Value Reference Range Interpretation Comments SODIUM URINE (BEAKER) (test code = 57 meq/L 243) Reference Range: No NormalsOperator ID - [id number], [id number] 20:22:00 Test Item Value Reference Range Interpretation Comments OSMOLALITY URINE (BEAKER) (test 196 mOsm/kg 40-1,400 code = 614) OSMOLALITY, [id number] 18:54:00 Test Item Value Reference Range Interpretation Comments OSMOLALITY, SERUM (BEAKER) (test 269 mOsm/kg 280-303 L code = 615) BASIC METABOLIC [id number] 18:48:00 Test Item Value Reference Range Interpretation [...] S NOT APPLICABLE FOR DIALYSIS PATIEN TS. Warehouser ID - [id number] W/ REFLEX URINE [id number] 13:19:00 Test Item Value Reference Range Interpretation [...] = 1584) SOURCE(BEAKER) (test code = 2795) Warehouser ID - [auto]Warehouser ID - techCT, [id number] 13:15:00Reason for exam:->abdominal painWhat is the patient's [...] PELLETS IN THE ABDOMEN AND LOWER CHEST. [place] llic pellets scattered throughout the soft tissues [...] MDReport Verified Date/Time: 09/23/2019 13:15:52 Reading Location: [facility] C013Y CT Body Reading Room REHENSIVE METABOLIC [id number] 12:12:00 Test Item Value Reference Range Interpretation [...] 347) EGFR (BEAKER) (test 72 mL/min/1.73 ESTIMA HEATHRE GFR IS code = 1092) sq m NOT ACCURATE CREATININE CLEARANCE IN PREDICTING GLOMERULAR FILTRATION RATE . ESTIMATED GFR I S NOT APPLICABLE FOR DIALYSIS PATIEN TS. Warehouser ID - [id number] W/PLT COUNT & AUTO [id number] 11:40:00 Test Item Value Reference Range Interpretation [...] Source 2016-12-31 10:45:00-00:00 Exam: Left elbow series [facility] Clinical Indication: - left elbow pain [...] assess for occult fracture. SL: CHRISTOFER 2016-12-31 10:45:00-00:00 Exam: Left elbow series [facility] Clinical Indication: - left elbow pain [...] 7-10 days to assess for occult fracture. JAVIER: CHRISTOFER 2016-12-31 10:38:36-00:00 Clinical Indication: - r/o I CH, on ASA, fall s/p walking dog and hit back of head [facility] Comparison: None TECHNIQUE: CT images [...] 2. Chronic changes as described above. SL: [id number] 2016-12-31 10:38:36-00:00 Clinical Indication: - r/o I CH, on ASA, fall s/p walking dog and hit back of head [facility] Comparison: None TECHNIQUE: CT images [...] 2. Chronic changes as described above. SL: [id number]
[2022-11-14 15:23] LABS: Specific Gravity 1.011 (1.005-1.030); Urine Bacteria <20 /HPF (<20); Urine Bilirubin NEGATIVE (Negative); Urine Blood 1+ (Negative); Urine Clarity Extremely Turbid (Clear); Urine Color Yellow (Yellow); Urine Glucose NEGATIVE (Negative); Urine Protein TRACE (Negative); Urine Urobilinogen Normal (Normal)
[2022-11-14 15:24] LABS: Urine Mucus Slight /HPF (None Seen); Urine WBC Clump Few /HPF (None Seen)
--- NOTE | 2022-11-14 16:23 | RAD REPORT ---
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 No acute fracture, dislocation or AVN. Previously n oted sacral ala fracture is obscured by bowel gas. Hardware is present lumbar spine.
[2022-11-14 16:44] LABS: Absolute Lymphocytes (CBC) 2.1 K/uL (0.7-4.9); Lymphocytes % 17.7 % (15.3-44.8); MPV 6.2 fL (7.6-11.3); RBC Red Blood Cell Count 3.95 M/uL (3.86-4.86)
[2022-11-14] MEDS ORDERED: CEFTRIAXONE 1000 MG/VIAL ONE (16:44)
[2022-11-14] MEDS ORDERED: NA CHLORIDE 0.9% 1,000 ML ONE (16:45)
[2022-11-14] MEDS ORDERED: NA CHLORIDE 0.9% 100 ML ONE (16:45)
[2022-11-14 17:16] LABS: ALT/SGPT 19 U/L (13-56); AST/SGOT 22 U/L (15-37); Albumin 3.2 g/dL (3.4-5.0); Alkaline Phosphatase 173 U/L (45-117); BUN Blood Urea Nitrogen 18 mg/dL (7-18); Bicarbonate 28 mEq/L (21-32); Bilirubin Total 0.2 mg/dL (0.2-1.0); Glomerular Filtration Rate 73 ml/min (=/>90); Glucose Level 98 mg/dL (74-106); Potassium 4.2 mEq/L (3.5-5.1); Protein, Total 6.6 g/dL (6.4-8.2); Sodium Level 129 mEq/L (136-145)
--- NOTE | 2022-11-14 17:35 | EDPHYS ---
Physician Documentation [facility] Name: Brionna Tee Age: 87 yrs Sex: Female : 1935 Arrival Date: 11/14/2022 Time: 14:36 Bed 12 Private MD: BORA Physician Demetris Junior HPI: 11/14 16:19 This 87 yrs old Female presents to ER via Wheelchair with complaints of sheri Pelvic Pain. 16:19 The patient or guardian reports decreased range of motion, pain. that occurred at home, sheri sustained from a fall, fall out of bed on 12th. The complaints affect the coccyx, left lower back and right lower back. Onset: The symptoms/episode began/occurred 12 day(s) ago. Modifying factors: The symptoms are alleviated by nothing, the symptoms are aggravated by nothing. The patient presents with pain that is chronic. The symptoms are located in the low back, coccyx area, lumbar area, sacrum, left low back and right low back. Onset: The symptoms/episode began/occurred 12 day(s) ago. Onset: The symptoms/episode began/occurred 2 week(s) ago. The pain does not radiate. Associated signs and symptoms: Pertinent positives:. Modifying factors: The patient symptoms are alleviated by remaining still, the patient symptoms are aggravated by standing, walking. Severity of symptoms: At their worst the symptoms were moderate, in the emergency department the symptoms are unchanged. Historical: - Allergies: 14:44 No Known Allergies; ll1 - PMHx: 14:44 chronic back pain; Hypercholesterolemia; Hypertensive disorder; ll1 - PSHx: 14:44 Total abdominal hysterectomy; ll1 - Immunization history:: Client reports having NOT received the Covid vaccine. - Social history:: Smoking status: Patient denies any tobacco usage or history of. - Family history:: not pertinent. ROS: 16:19 Constitutional: Negative for fever, chills, and weight loss, Eyes: Negative for injury, sehri pain, redness, and discharge, ENT: Negative for injury, pain, and discharge, Neck: Negative for injury, pain, and swelling, Cardiovascular: Negative for chest pain, palpitations, and edema, Respiratory: Negative for shortness of breath, cough, wheezing, and pleuritic chest pain, Abdomen/GI: Negative for abdominal pain, nausea, vomiting, diarrhea, and constipation, : Negative for injury, bleeding, discharge, and swelling, MS/Extremity: Negative for injury and deformity, Skin: Negative for injury, rash, and discoloration, Neuro: Negative for headache, weakness, numbness, tingling, and seizure, Psych: Negative for depression, anxiety, suicide ideation, homicidal ideation, and hallucinations, Allergy/Immunology: Negative for hives, rash, and allergies, Endocrine: Negative for neck swelling, polydipsia, polyuria, polyphagia, and marked weight changes, Hematologic/Lymphatic: Negative for swollen nodes, abnormal bleeding, and unusual bruising. 16:19 Back: Positive for injury or acute deformity, decreased range of motion, pain with movement, of the lumbar area, sacrum, left low back and right low back. 16:19 MS/extremity: Positive for decreased range of motion, pain, of the buttocks. Exam: 16:19 Constitutional: This is a well developed, well nourished patient who is awake, alert, sheri and in no acute distress. Head/Face: Normocephalic, atraumatic. Eyes: Pupils equal round and reactive to light, extra-ocular motions intact. Lids and lashes normal. Conjunctiva and sclera are non-icteric and not injected. Cornea within normal limits. Periorbital areas with no swelling, redness, or edema. ENT: Nares patent. No nasal discharge, no septal abnormalities noted. Tympanic membranes are normal and external auditory canals are clear. Oropharynx with no redness, swelling, or masses, exudates, or evidence of obstruction, uvula midline. Mucous membranes moist. Neck: Trachea midline, no thyromegaly or masses palpated, and no cervical lymphadenopathy. Supple, full range of motion without nuchal rigidity, or vertebral point tenderness. No Meningismus. Chest/axilla: Normal chest wall appearance and motion. Nontender with no deformity. No lesions are appreciated. Cardiovascular: Regular rate and rhythm with a normal S1 and S2. No gallops, murmurs, or rubs. Normal PMI, no JVD. No pulse deficits. Respiratory: Lungs have equal breath sounds bilaterally, clear to auscultation and percussion. No rales, rhonchi or wheezes noted. No increased work of breathing, no retractions or nasal flaring. Abdomen/GI: Soft, non-tender, with normal bowel sounds. No distension or tympany. No guarding or rebound. No evidence of tenderness throughout. Female : Normal external genitalia. Skin: Warm, dry with normal turgor. Normal color with no rashes, no lesions, and no evidence of cellulitis. Neuro: Awake and alert, GCS 15, oriented to person, place, time, and situation. Cranial nerves II-XII grossly intact. Motor strength 5/5 in all extremities. Sensory grossly intact. Cerebellar exam normal. Normal gait. Psych: Awake, alert, with orientation to person, place and time. Behavior, mood, and affect are within normal limits. 16:19 Respiratory: Exam negative for 16:19 Back: pain, that is mild, that is moderate, ROM is painful, normal spinal alignment noted, CVA tenderness, is absent, vertebral tenderness, is appreciated at lumbar spine, muscle spasm, is appreciated in the left low back, left mid back and right low back. Vital Signs: 14:42 BP 163 / 88; Pulse 75; Resp 18; Temp 97.2; Pulse Ox 96% ; Weight 58.97 kg; Height 5 ft. ll1 5 in. ; Pain 10/10; 17:45 BP 174 / 78; Pulse 70; Resp 16; Pulse Ox 97% on R/A; cm10 14:42 Body Mass Index 21.63 (58.97 kg, 165.1 cm) ll1 14:42 Pain Scale: Adult ll1 MDM: 14:52 Patient medically screened. [facility] 16:25 Differential diagnosis: hip fracture, arthritis, strain. Data reviewed: vital signs, [facility] nurses notes, lab test result(s), radiologic studies, plain films. Consideration of Admission/Observation Escalation of care including admission/observation considered. 16:44 I considered the following discharge prescriptions or medication management in the [facility] emergency department Medications were administered in the Emergency Department. See MAR. Independent interpretation of the following test(s) in the Emergency Department X-Ray: My interpretation is pelvis. Test considered but Not performed: EKG: no ekg. Historians other than the Patient: Daughter/Son: daughter. Care significantly affected by the following chronic conditions: Hypertension, high cholesterol, cbp. Counseling: I had a detailed discussion with the patient and/or guardian regarding: the historical points, exam findings, and any diagnostic results supporting the discharge/admit diagnosis, lab results, radiology results, the need for outpatient follow up, for definitive care, a family practitioner. 11/14 14:52 Order name: Urinalysis w/ reflexes; Complete Time: 16:15 [facility] 11/14 15:29 Order name: Urine Culture EDTN 11/14 16:17 Order name: CBC with Diff; Complete Time: 16:52 [facility] 11/14 16:18 Order name: Comprehensive Metabolic Panel; Complete Time: 17:33 [facility] 11/14 16:18 Order name: Asprin; Complete Time: 17:33 [facility] 11/14 16:18 Order name: Tylenol Level; Complete Time: 17:33 [facility] 11/14 16:18 Order name: AMMONIA; Complete Time: 17:03 [facility] 11/14 14:52 Order name: Pelvis XRAY; Complete Time: 16:52 [facility] 11/14 17:33 Order name: PO challenge: juice; Complete Time: 17:39 [facility] Administered Medications: 16:42 Drug: Rocephin IV 1 grams Route: IV; Rate: per protocol; Site: left forearm; cm10 17:45 Follow up: Response: No adverse reaction; IV Status: Completed infusion cm10 16:43 Drug: NS 0.9% IV 1000 ml Route: IV; Rate: 1 bolus; Site: left forearm; cm10 18:47 Follow up: Response: No adverse reaction; IV Status: Completed infusion cm10 17:45 Drug: Ciprofloxacin PO 500 mg Route: PO; cm10 18:47 Follow up: Response: No adverse reaction cm10 Disposition Summary: 11/14/22 17:34 Discharge Ordered Location: Home sheri Problem: new sheri Symptoms: have improved sheri Condition: Stable sheri Diagnosis - UTI/ Urinary tract infection, site not specified sheri - Chronic pain, not elsewhere classified sheri - Fracture of other parts of pelvis - bilateral ala, sacral sheri - Hypo-osmolality and hyponatremia - 129 sheri Followup: sheri - With: Private Physician - When: 2 - 3 days - Reason: Recheck today's complaints, Continuance of care, Re-evaluation by your physician Discharge Instructions: - Discharge Summary Sheet sheri - Chronic Back Pain sheri - Dysuria sheri - Hyponatremia sheri - Simple Pelvic Fracture, Adult sheri - Urinary Tract Infection, Adult sheri - Urinary Tract Infection, Adult, [id number] sheri - Chronic Back Pain, [id number] sheri Forms: - Medication Reconciliation Form sheri - Thank You Letter sheri - Antibiotic Education sheri - Prescription Opioid Use [facility] Prescriptions: - Cipro 250 mg Oral Tablet - take 1 tablet by ORAL route every 12 hours; 14 tablet; Refills: 0, Product [facility] Selection Permitted - Tylenol 325 mg Oral Tablet - take 2 tablets by ORAL route every 6 hours as needed; 60 tablet; Refills: 0, [facility] Product Selection Permitted - Motrin IB 200 mg Oral Tablet - take 2 tablet by ORAL route every 6 hours As needed as needed with food; 30 sheri tablet; Refills: 0, Product Selection Permitted Signatures: Dispatcher [employer] Demetris Carr MD MD cha Lewis, Lynsay RN RN ll1 Kaia Law RN RN cm10
--- NOTE | 2022-11-14 17:35 | ER ---
Nurse's Notes [facility] Name: Brionna Tee Age: 87 yrs Sex: Female : 1935 Arrival Date: 11/14/2022 Time: 14:36 Bed 12 Private MD: Diagnosis: UTI/ Urinary tract infection, site not specified;Chronic pain, not elsewhere classified;Fracture of other parts of pelvis-bilateral ala, sacral;Hypo-osmolality and hyponatremia-129 Presentation: 11/14 14:42 Chief complaint: Patient states: Pelvic pain from fracture 10/28/22. Ran out of pain ll1 meds. No new falls or trauma. Coronavirus screen: Vaccine status: Patient reports being unvaccinated. Client denies travel out of the [place] in the last 14 days. At this time, the client does not indicate any symptoms associated with coronavirus-19. Ebola Screen: Patient denies travel to an Ebola-affected area in the 21 days before illness onset. Initial Sepsis Screen: Does the patient meet any 2 criteria? No. Patient's initial sepsis screen is negative. Does the patient have a suspected source of infection? No. Patient's initial sepsis screen is negative. Risk Assessment: Do you want to hurt yourself or someone else? Patient reports no desire to harm self or others. Onset of symptoms was October 28, 2022. 14:42 Method Of Arrival: Wheelchair ll1 14:42 Acuity: OTILIA 4 ll1 Triage Assessment: 14:45 General: Appears uncomfortable, Behavior is calm, cooperative, appropriate for age. ll1 Pain: Complains of pain in pelvis Pain currently is 10 out of 10 on a pain scale. Quality of pain is described as aching. Musculoskeletal: Reports pain in pelvis. Historical: - Allergies: 14:44 No Known Allergies; ll1 - PMHx: 14:44 chronic back pain; Hypercholesterolemia; Hypertensive disorder; ll1 - PSHx: 14:44 Total abdominal hysterectomy; ll1 - Immunization history:: Client reports having NOT received the Covid vaccine. - Social history:: Smoking status: Patient denies any tobacco usage or history of. - Family history:: not pertinent. Screenin:47 [facility] ED Fall Risk Assessment (Adult) History of falling in the last 3 months, cm10 including since admission Yes- single mechanical fall (1 pt) Confusion or Disorientation No (0 pts) Intoxicated or Sedated No (0 pts) Impaired Gait Yes (1 pt) Mobility Assist Device Used Yes (1 pt) Altered Elimination No (0 pt) Score/Fall Risk Level 3 or more points = High Risk Oriented to surroundings, Maintained a safe environment, Educated pt \T\ family on fall prevention, incl call for assistance when getting out of bed, Hourly rounding (assess needs \T\ fall precautionary measures) done. Abuse screen: Denies threats or abuse. Denies injuries from another. Nutritional screening: No deficits noted. Tuberculosis screening: No symptoms or risk factors identified. Assessment: 14:45 General: Appears in no apparent distress. uncomfortable, Behavior is calm, cooperative. cm10 Neuro: No deficits noted. Level of Consciousness is awake, alert, obeys commands, Oriented to person, place, time, situation. Respiratory: No deficits noted. Airway is patent Respiratory effort is even, unlabored, Respiratory pattern is regular, symmetrical. Musculoskeletal: Reports pain in pelvis. Vital Signs: 14:42 BP 163 / 88; Pulse 75; Resp 18; Temp 97.2; Pulse Ox 96% ; Weight 58.97 kg; Height 5 ft. ll1 5 in. ; Pain 10/10; 17:45 BP 174 / 78; Pulse 70; Resp 16; Pulse Ox 97% on R/A; cm10 14:42 Body Mass Index 21.63 (58.97 kg, 165.1 cm) ll1 14:42 Pain Scale: Adult ll1 ED Course: 14:38 Patient arrived in ED. ll1 14:43 Kaia Law, RN is Primary Nurse. cm10 14:44 Triage completed. ll1 14:45 Arm band placed on Patient placed in an exam room, on a stretcher. ll1 14:46 Patient has correct armband on for positive identification. Bed in low position. Call cm10 light in reach. Side rails up X2. 14:48 Demetris Junior MD is Attending Physician. sheri 15:11 Urinalysis w/ reflexes Sent. cm10 16:19 Pelvis XRAY In Process Unspecified. EDMS 16:32 AMMONIA Sent. cm10 16:32 Tylenol Level Sent. cm10 16:32 Asprin Sent. cm10 16:32 Comprehensive Metabolic Panel Sent. cm10 16:32 CBC with Diff Sent. cm10 16:43 Initial lab(s) drawn, by ca, sent to lab. Inserted saline lock: 20 gauge in left cm10 forearm, using aseptic technique. Blood collected. 18:10 ED physician to see patient. cm10 18:47 No provider procedures requiring assistance completed. IV discontinued, intact, cm10 bleeding controlled, No redness/swelling at site. Pressure dressing applied. Administered Medications: 16:42 Drug: Rocephin IV 1 grams Route: IV; Rate: per protocol; Site: left forearm; cm10 17:45 Follow up: Response: No adverse reaction; IV Status: Completed infusion cm10 16:43 Drug: NS 0.9% IV 1000 ml Route: IV; Rate: 1 bolus; Site: left forearm; cm10 18:47 Follow up: Response: No adverse reaction; IV Status: Completed infusion cm10 17:45 Drug: Ciprofloxacin PO 500 mg Route: PO; cm10 18:47 Follow up: Response: No adverse reaction cm10 Medication: 18:47 VIS not applicable for this client. cm10 Outcome: 17:34 Discharge ordered by MD. wade 18:48 Discharged to home via wheelchair, with family. cm10 18:48 Condition: good 18:48 Discharge instructions given to patient, family, Instructed on discharge instructions, follow up and referral plans. Demonstrated understanding of instructions, follow-up care, medications, Prescriptions given X 3. 18:48 Patient left the ED. cm10 Signatures: Dispatcher [employer] Demetris Carr MD MD cha Lewis, Lynsay, RN RN ll1 Kaia Law RN RN cm10
[2022-11-14] MEDS ORDERED: CIPROFLOXACIN HCL 500 MG TAB ONE (17:49)
[2022-11-14 18:58] VITALS: TEMP 97.2
[2022-11-14 19:00] VITALS: BP 174/78; O2SAT 97
== END 2022-11-14 18:48 | disposition home or self-care (01) ==
LOC: ER 14:36
DX: S32.89XA Fracture of other parts of pelvis, initial encounter for closed fracture (principal); N39.0 Urinary tract infection, site not specified; E87.1 Hypo-osmolality and hyponatremia; G89.29 Other chronic pain; W06.XXXA Fall from bed, initial encounter; I10 Essential (primary) hypertension
CPT/HCPCS: 96365; 96361; 87088; 85025; 81001; 87086; 36415; 82140; 80053; 72170; 99284; 80143; 80179; J7030; J0696

== ENCOUNTER 2022-11-15 07:38 | Emergency (ER) | payer OTHER ==
--- OUTSIDE RECORDS SUMMARY | 2022-11-15 07:45 | XMS REPORT | Continuity of Care Document ---
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 mouth Luke [facility] MG tablet 12:38: nightly . Med ical 59 [place] gabapentin 0 Yes 600mg Q.[id number] Take [address] [facility] (NEURONTIN) 5-04 [id number] mg by Jeferson spann 600 MG 12:38: 3D mouth 3 Medical tablet 59 (three) Center times daily. montelukast 2019-0 Yes 10mg QD Take [address] [facility] (SINGULAIR) 5-04 by mouth Luke s 10 mg 12:38: nightly. Medical tablet 59 Center estradioL 2020-0 Yes .5mg QD Take 0.[address] [facility] (ESTRACE) 5-04 [facility] MG 12:38: mouth Medical tablet 59 daily. [place] citalopram 0 Yes 10mg QD Take [address] (CELEXA) 10 5-04 by mouth Luke s MG tablet 12:38: nightly . Med ical 59 Center gabapentin 2020-0 Yes 600mg Q.[id number] Take [address] [facility] [address] (NEURONTIN) 5-04 [id number] mg by L ukes 600 MG 12:38: [...] tablet 12:38: nightly . Med ical 59 [place] gabapentin 2020-0 Yes 600mg Q.[id number] Take [address] [facility] [address] (NEURONTIN) 5-04 [id number] mg by L ukes 600 MG 12:38: 3D mouth 3 Medical tablet 59 (three) Center times daily. montelukast 2020-0 Yes 10mg QD Take [address] [facility] (SINGULAIR) 5-04 by mouth Luke s 10 mg 12:38: nightly. Medical tablet 59 [place] estradioL 2020-0 Yes .5mg QD Take 0.[address] [facility] (ESTRACE) 5-04 mg by [facility] 0.5 MG 12:38: mouth Medical tablet 59 daily. [place] citalopram 2020-0 Yes 10mg QD Take [address] (CELEXA) 10 5-04 by mouth Luke s MG tablet 12:38: nightly . Med ical 59 [place] gabapentin 2020-0 Yes 600mg Q.[id number] Take [address] [facility] [address] (NEURONTIN) 5-04 [id number] mg by L ukes 600 MG 12:38: 3D mouth 3 Medical tablet 59 (three) Center times daily. montelukast 2020-0 Yes 10mg QD Take [address] [facility] (SINGULAIR) 5-04 by mouth Luke s 10 mg 12:38: nightly. Medical tablet 59 [place] estradioL 2020-0 Yes .5mg QD Take 0.[address] [facility] (ESTRACE) 5-04 mg by [facility] 0.5 MG 12:38: mouth Medical tablet 59 daily. Center citalopram 2020-0 Yes 10mg QD Take [address] (CELEXA) 10 5-04 by mouth Luke s MG tablet 12:38: nightly . Med ical 59 Center gabapentin 2020-0 Yes 600mg Q.[id number] Take [address] [facility] [address] (NEURONTIN) 5-04 [id number] mg by L ukes 600 MG 12:38: 3D mouth 3 Medical tablet 59 (three) Center times daily. montelukast 2020-0 Yes 10mg QD Take [address] [facility] (SINGULAIR) 5-04 by mouth Luke s 10 mg 12:38: nightly. Medical tablet 59 Center baclofen 2020-0 Yes 5mg Take 0.5 [...] a 8-11 (Same as: l 15:30: Motrin) [place] 00 "Do Not Crush" Give with food. [...] 0.9% 8-11 (Same as: l 15:30: BD [place] 00 Posiflush) Ibuprofen 2017 No Notes: Memori a 8-11 (Same as: l 15:30: Motrin) [place] 00 "Do Not Crush" Give with food. [...] l 15:30: BD Micheal 00 Posiflush) Ibuprofen 0 No Notes: Memori a 8-11 (Same as: l 15:30: Motrin) Micheal 00 "Do Not Crush" Give with food. Saline No Notes: Memoria Flush 0.9% 8-11 (Same as: l 15:30: BD [place] 00 Posiflush) Ibuprofen 20170 No Notes: Memori [...] a 8-11 (Same as: l 15:30: Motrin) [place] 00 "Do Not Crush" Give with food. Saline No Notes: Memoria Flush 0.9% 8-11 (Same as: l 15:30: BD [place] 00 Posiflush) Ibuprofen No Notes: Memori a [...] 00:00:00 - External Pneumococcal Vaccine, 2014 Completed Dwayne sey Seybold Conjugate 13 00:00:00 Pneumococcal Vaccine, 2014 Completed Dwayne sey Seybold Conjugate 13 00:00:00 Pneumococcal Vaccine, 2014 Completed Dwayne sey Seybold Conjugate 13 00:00:00 Pneumococcal Vaccine, 2014 Completed Dwayne sey Seybold Conjugate 13 00:00:00 Pneumococcal Vaccine, 2014 Completed Dwayne sey Seybold Conjugate 13 00:00:00 Pneumococcal Vaccine, 2014 Completed Dwayne sey Seybold Conjugate 13 00:00:00 Pneumococcal Vaccine, 2014 Completed Dwayne sey Seybold Conjugate 13 00:00:00 - External Pneumococcal Vaccine, 2014 Completed Dwayne sey Seybold Conjugate 13 00:00:00 - External Pneumococcal Vaccine, 2014 Completed Dwayne sey Seybold Conjugate 13 00:00:00 - External Pneumococcal Vaccine, 2014 Completed Dwayne sey Seybold Conjugate 13 00:00:00 - External Pneumococcal Vaccine, 2014 Completed Dwayne sey Seybold Conjugate 13 00:00:00 - External Pneumococcal Vaccine, 2014 Completed Dwayne sey Seybold Conjugate 13 00:00:00 Tdap- (Boostrix, [...] xternal and up Influenza Virus 2012-03-24 Completed Yaar Se ybold Vaccine, age 6 months 00:00:00 and up Pneumococcal Vaccine, 2006-12-21 Completed Dwayne sey Seybold Polysaccharide 00:00:00 Pneumococcal Vaccine, 2006-12-21 Completed Dwayne sey Seybold Polysaccharide 00:00:00 Pneumococcal Vaccine, 2006-12-21 Completed Dwayne sey Seybold Polysaccharide 00:00:00 Pneumococcal Vaccine, 2006-12-21 Completed Dwayne sey Seybold Polysaccharide 00:00:00 Pneumococcal Vaccine, 2006-12-21 Completed Dwayne sey Seybold Polysaccharide 00:00:00 Pneumococcal Vaccine, 2006-12-21 Completed Dwayne sey Seybold Polysaccharide 00:00:00 Pneumococcal Vaccine, 2006-12-21 Completed Dwayne sey Seybold Polysaccharide 00:00:00 - External Pneumococcal Vaccine, 2006-12-21 Completed Dwayne sey Seybold Polysaccharide 00:00:00 - External Pneumococcal Vaccine, 2006-12-21 Completed Dwayne sey Seybold Polysaccharide 00:00:00 - External Pneumococcal Vaccine, 2006-12-21 Completed Dwayne sey Seybold Polysaccharide 00:00:00 - External Pneumococcal Vaccine, 2006-12-21 Completed Dwayne sey Seybold Polysaccharide 00:00:00 - External Pneumococcal Vaccine, 2006-12-21 Completed Dwayne sey Seybold Polysaccharide 00:00:00 Vital Signs Vital Name Observation Time Observation Value Comments Source Systolic blood 2022-10-13 18:10:00 119 mm[Hg] Yara Seybold - pressure External Diastolic blood 2022-10-13 18:10:00 70 mm[Hg] Gareth y Seybold - pressure External Heart rate 2022-10-13 18:10:00 61 /min Yara Larson eybold - External Body temperature 2022-10-13 18:10:00 [...] saturation in 2022-10-13 18:10:00 97 /min Yara Seybold - Arterial blood by External Pulse oximetry Systolic blood 2022-09-15 15:21:00 114 mm[Hg] Yara Seybold - pressure External Diastolic blood 2022-09-15 15:21:00 66 mm[Hg] Dwaynese y Seybold - pressure External Heart rate [...] Heart rate 2021-02-25 18:15:00 76 /min Yara S eybold Body temperature 2021-02-25 18:15:00 36.44 Kavitha Susan Gregg Respiratory rate 2021-02-25 18:15:00 20 /min Susan Gregg Body height 2021-02-25 18:15:00 165.1 cm Yara butler Body weight 2021-02-25 18:15:00 61.689 kg Yara butler BMI 2021-02-25 18:15:00 22.63 kg/m2 Yara wubonarda Respitory Rate 2016-12-31 16:32:00 Memori al Micheal Systolic (mm Hg) 2016-12-31 16:32:00 Cm rial [place] Diastolic (mm Hg) 2016-12-31 16:32:00 Mem orial Micheal Temperature Oral (F) 2016-12-31 16:32:00 97.6 F [facility]al Respitory Rate 2016-12-31 15:31:00 Memori al [place] Systolic (mm Hg) 2016-12-31 15:31:00 Cm rial Micheal Diastolic (mm Hg) 2016-12-31 15:31:00 Mem orial [place]al Weight 2016-12-31 15:13:00 [facility] BMI Calculated 2016-12-31 15:13:00 Memori al Micheal Temperature Oral (F) 2016-12-31 15:13:00 98.1 F [facility] [place] Height 2016-12-31 15:13:00 167.64 cm [facility] [place] Heart Rate 2016-12-31 15:13:00 [facility]al Respitory Rate 2016-12-31 15:13:00 Memori al Micheal Systolic (mm Hg) 2016-12-31 15:13:00 Cm rial [place] Diastolic (mm Hg) 2016-12-31 15:13:00 Mem orial [place] Procedures Procedure Date / Time Performed Performing Clinician [facility] e LUMBAR SPINE 2 VIEWS 2021-04-01 20:32:11 DuralLorene UPRIGHT HIPS BILATERAL 2021-04-01 20:31:33 Lorene Solorzano [facility] Care Planned Activity Planned Date [...] Department ID 2023-03-24 2023-03-24 Outpatient YARA JUSTIN [id number] Yara 09:00:00 09:00:00 GIOVANNA hernández 2023-03-02 2023-03-02 Outpatient YARA ADAMS [id number] Yara 14:00:00 14:00:00 CHELSEA laboy 2022-11-24 2022-11-24 Outpatient DEANNA GOMEZ [id number] Yara 13:00:00 13:00:00 Seybol d 2022-11-17 2022-11-17 Outpatient DEANNA GOMEZ [id number] Yara 10:40:00 10:40:00 Seybol d 2022-11-15 2022-11-15 Outpatient SILVERIO SALAMANCA [id number] Yara 00:00:00 00:00:00 Seybol d 2022-11-09 2022-11-09 Outpatient YARA DOAN [id number] Yara 00:00:00 00:00:00 LEONID Seybol d 2022-11-07 2022-11-07 Outpatient SOCORRO WOOD Y[facility] [place] [id number] Yara 00:00:00 00:00:00 Seybol d 2022-11-05 2022-11-05 Outpatient MARCUS SEYMOUR [id number] Yara 14:00:00 14:00:00 Seybol d 2022-11-05 2022-11-05 Outpatient YARA JUSTIN [id number] Yara 00:00:00 00:00:00 GIOVANNA Seybol d 2022-10-27 2022-10-27 Outpatient YARA CRUZ [id number] Yara 00:00:00 00:00:00 TERRY Seybol d 2022-10-27 2022-10-27 Outpatient GUSTAVOLUCINAChristine DEANNA YARA [place] [id number] Yara 00:00:00 00:00:00 Seybol d 2022-10-27 2022-10-27 Outpatient YARA CRUZ [id number] Yara 00:00:00 00:00:00 TERRY Seybol d 2022-10-26 2022-10-26 Outpatient YARA JUSTIN [id number] Yara 00:00:00 00:00:00 GIOVANNA Seybol d 2022-10-25 2022-10-25 Outpatient MYDWAYNESEYONJeferson YARA [place] [id number] Yara 00:00:00 00:00:00 MD QING Seybol d 2022-10-14 2022-10-14 Outpatient YARA JUSTIN [id number] Yraa 00:00:00 00:00:00 GIOVANNA Seybol d 2022-10-13 2022-10-13 Outpatient LAB90 YARA [place] [id number] Yara 16:25:00 16:25:00 Seybol d 2022-10-13 2022-10-13 Outpatient YARA JUSTIN [id number] Yara 13:00:00 13:00:00 GIOVANNA Seybol d 2022-10-08 2022-10-08 Outpatient MARCUS SEYMOUR [id number] Yara 13:00:00 13:00:00 Seybol d 2022-10-07 2022-10-07 Outpatient SOCORRO WOOD YARA [place] [id number] Yara 00:00:00 00:00:00 Seybol d 2022-09-28 2022-09-28 Outpatient YARA CRUZ [id number] Yara 00:00:00 00:00:00 TERRY Seybol d 2022-09-20 2022-09-20 Outpatient YARA CRUZ [id number] Yara 00:00:00 00:00:00 TERRY Seybol d 2022-09-17 2022-09-17 Outpatient LAB90 YAAR [place] [id number] Yara 11:10:00 11:10:00 Seybol d 2022-09-15 2022-09-15 Outpatient LAB90 YARA [place] [id number] Yara 11:45:00 11:45:00 Seybol d 2022-09-15 2022-09-15 Outpatient YARA JUSTIN [id number] Yara 10:30:00 10:30:00 GIOVANNA Seybol d 2022-09-07 2022-09-07 Outpatient DARNELL SOCORRO Y[facility] [place] [id number] Yara 00:00:00 00:00:00 Seybol d 2022-08-31 2022-08-31 Outpatient YARA ADAMS [id number] Yara 15:00:00 15:00:00 CHELSEA Seybo ld 2022-08-27 2022-08-27 Outpatient YARA CRUZ [id number] Yara 00:00:00 00:00:00 TERRY Seybol d 2022-08-23 2022-08-23 Outpatient YARA ADAMS [id number] Yara 15:15:00 15:15:00 CHELSEA Seybo ld 2022-08-23 2022-08-23 Outpatient DEANNA GOMEZ [id number] Yara 10:40:00 10:40:00 Seybol d 2022-08-23 2022-08-23 Outpatient DEANNA GOMEZ [id number] Yara 00:00:00 00:00:00 Seybol d 2022-08-09 2022-08-09 Outpatient DEANNA GOMEZ [facility] [place] [id number] Yara 09:20:00 09:20:00 Seybol d 2022-08-06 2022-08-06 Outpatient SOCORRO WOOD [facility] [place] [id number] Yara 00:00:00 00:00:00 Seybol d 2022-07-28 2022-07-28 Outpatient YARA CRUZ [id number] Yara 00:00:00 00:00:00 TERRY Seybol d 2022-07-26 2022-07-26 Outpatient YARA CORONA [id number] Yara 00:00:00 00:00:00 BADmitriyGHA Seybol d 2022-07-11 2022-07-11 Outpatient DARNELLSOCORRO [id number] Yara 00:00:00 00:00:00 Seybol d 2022-07-06 2022-07-06 Outpatient DARNELLSOCORRO [id number] Yara 00:00:00 00:00:00 Seybol d 2022-07-01 2022-07-01 Outpatient MARCUS SEYMOUR [id number] Yara 10:30:00 10:30:00 Seybol d 2022-07-01 2022-07-01 Outpatient YARA KNUTSON [id number] Yara 00:00:00 00:00:00 YELITZA Seybol d 2022-06-28 2022-06-28 Outpatient YARA CRUZ [id number] Yara 00:00:00 00:00:00 TERRY Seybol d 2022-06-23 2022-06-23 Outpatient YARA CRUZ [id number] Yara 00:00:00 00:00:00 TERRY Seybol d 2022-06-11 2022-06-11 Outpatient NORM [place] [id number] Yara 00:00:00 00:00:00 MD QING Seybol d 2022-06-10 2022-06-10 Outpatient MRACUS SEYMOUR [id number] Yara 00:00:00 00:00:00 Seybol d 2022-06-09 2022-06-09 Outpatient YARA KWAN [id number] Yara 11:00:00 11:00:00 CHRISTOS Seybol d 2022-06-08 2022-06-08 Outpatient SOCORRO WOOD Y[facility] [place] [id number] Yara 00:00:00 00:00:00 Seybol d 2022-06-07 2022-06-07 Outpatient LAB90 YARA [place] [id number] Yara 14:40:00 14:40:00 Seybol d 2022-06-03 2022-06-03 Outpatient LAB47 YARA [place] [id number] Yara 17:35:00 17:35:00 Seybol d 2022-06-03 2022-06-03 Outpatient YARA [place] [id number] Yara 15:25:00 15:25:00 Seybol d 2022-06-03 2022-06-03 Outpatient YARA KIM [id number] Yara 15:10:00 15:10:00 DARRELL Seybol d 2022-06-03 2022-06-03 Outpatient MARCUS SEYMOUR [id number] Yara 00:00:00 00:00:00 Seybol d 2022-06-03 2022-06-03 Outpatient EDWARDOYARATAMARA [facility]ARA [place] [id number] Yara 00:00:00 00:00:00 MD QING Seybol d 2022-06-02 2022-06-02 Outpatient SOCORRO WOOD [id number] Yara 00:00:00 00:00:00 Seybol d 2022-06-02 2022-06-02 Outpatient YARA CHAPA [id number] Yara 00:00:00 00:00:00 OC Seyb old 2022-06-01 2022-06-01 Outpatient YARA KIM [id number] Yara 00:00:00 00:00:00 DARRELL Seybol d 2022-05-24 2022-05-24 Outpatient YARA CRUZ [id number] Yara 00:00:00 00:00:00 TERRY Seybol d 2022-05-20 2022-05-20 Outpatient MARCUS SEYMOUR [facility] [place] [id number] Yara 13:30:00 13:30:00 Seybol d 2022-05-18 2022-05-18 Outpatient ANGIE [facility] [place] [id number] Yara 14:15:00 14:15:00 CHELSEA Kev laboy 2022-05-12 2022-05-12 Outpatient ESTEFANIATAIWOTAMARA [place] [id number] Yara 00:00:00 00:00:00 MD QING Seybol d 2022-05-11 2022-05-11 Outpatient NORM [place] [id number] Yara 00:00:00 00:00:00 MD Dakota LONGOybol susu 2022-05-08 2022-05-08 Outpatient DARNELLSOCORRO [id number] Yara 00:00:00 00:00:00 Seybol d 2022-05-01 2022-05-01 Outpatient SOCORRO WOOD Y[facility] [place] [id number] Yara 00:00:00 00:00:00 Seybol d 2022-04-23 2022-04-23 Outpatient NANCYYARA [id number] Yara 00:00:00 00:00:00 TERRY Seybol d 2022-02-24 2022-02-24 Outpatient MARCUS SEYMOUR [facility] [place] [id number] Yara 00:00:00 00:00:00 Seybol d 2022-02-09 2022-02-09 Outpatient YARA DUKES [id number] Yara 00:00:00 00:00:00 JOHN Seybol d 2022-01-26 2022-01-26 Outpatient ESTEFANIATAIWOTAMARA [place] [id number] Yara 00:00:00 00:00:00 MD QING Seybol d 2022-01-22 2022-01-22 Office Cristian Justin [id number] Yara 10:30:00 11:00:00 Visit Giovanna Ochoa [id number] john [id number] 2022-01-13 2022-01-13 Outpatient DARYA HART [facility] [place] [id number] Yara 08:15:00 08:15:00 Seybol d 2021-12-25 2021-12-25 Outpatient TRED47 YARA [place] [id number] Yara 15:15:00 15:15:00 Seybol d 2021-12-25 2021-12-25 Office Marcus Seymour 1.2.840.114 [id number] Yara 14:40:00 15:00:00 Visit [id number] Se ybold [id number] 2021-12-22 2021-12-22 Outpatient YARA DUKES [id number] Yara 00:00:00 00:00:00 JOHN Seybol d 2021-12-14 2021-12-14 Telemedici [facility]OD [id number] Yara 14:00:00 14:00:00 ne [id number] Se ybold [id number] 2021-12-14 2021-12-14 Outpatient DARWINDominickYARA [id number] Yara 00:00:00 00:00:00 CHUCKY Seyb old 2021-12-09 2021-12-09 Outpatient YARA DUKES [id number] Yara 00:00:00 00:00:00 JOHN Seybol d 2021-12-07 2021-12-07 Outpatient YARA [place] [id number] Yara 13:30:00 13:30:00 Seybol d 2021-12-03 2021-12-03 Outpatient YARA [place] [id number] Yara 13:30:00 13:30:00 Seybol d 2021-11-25 2021-11-25 Outpatient TANNERDARYA [id number] Yara 00:00:00 00:00:00 Seybol d 2021-11-16 2021-11-16 Office LINDA Adams 1.2.840.114 [id number] Yara 14:15:00 14:30:00 Visit Chelsea [id number] S eybold [id number] 2021-11-16 2021-11-[address] Y[place] [id number] Yara 07:00:00 07:00:00 Seybol d 2021-10-26 2021-10-26 Office LINDA Kim 1.2.840.114 [id number] Yara 13:40:00 14:00:00 Visit Darrell Carmen 350.1.13.13 Seybold 1.2.7.2.686 [id number] 2021-10-14 2021-10-14 Outpatient YARA DUKES [id number] Yara 00:00:00 00:00:00 OJHN Seybol d 2021-10-12 2021-10-12 Office Socorro Wood 1.2.840.114 [id number] Yara 14:00:00 14:30:00 Visit Susu 350.1.13.13 Se ybold [id number] 2021-09-30 2021-09-30 Outpatient YARA SHARP [id number] Yara 12:30:00 12:30:00 SYDNI Seybol d 2021-09-29 2021-09-29 Outpatient NORM [place] [id number] Yara 00:00:00 00:00:00 MD QING Seybol d 2021-09-15 2021-09-15 Office LINDA Dukes 1.2.840.114 [id number] Yraa 13:45:00 14:15:00 Visit John Peter 350.1.13.13 Seybold [id number] 2021-08-14 2021-08-14 Outpatient YARA CISNEROS [id number] Yara 11:15:00 11:15:00 CHUCKY Seyb old 2021-08-12 2021-08-12 Outpatient YARA CRUZ [id number] Yara 00:00:00 00:00:00 TERRY Seybol d 2021-08-03 2021-08-03 Outpatient YARA HYATT [id number] Yara 14:15:00 14:15:00 CIRILO Seybo ld 2021-07-30 2021-07-30 Outpatient DURALLORENE [id number] Yara 00:00:00 00:00:00 Seybol d 2021-07-28 2021-07-28 Outpatient NORM [facility] [id number] Yara 00:00:00 00:00:00 MD QING Seybol d 2021-07-27 2021-07-27 Outpatient DURAL, LORENE [place] [id number] Yara 00:00:00 00:00:00 Seybol d 2021-07-17 2021-07-17 Outpatient YARA CRUZ [id number] Yara 00:00:00 00:00:00 TERRY Seybol d 2021-07-12 2021-07-12 Outpatient YARA CRUZ [id number] Yara 00:00:00 00:00:00 TERRY Seybol d 2021-07-07 2021-07-07 Outpatient YARA CRUZ [id number] Yara 00:00:00 00:00:00 TERRY Seybol d 2021-07-01 2021-07-01 Outpatient YARA SOUTH [id number] Yara 12:15:00 12:15:00 TRINA Seybol d 2021-06-30 2021-06-30 Outpatient YARA CRUZ [id number] Yara 00:00:00 00:00:00 TERRY Seybol d 2021-06-22 2021-06-22 Office RADHA Cruz 1.2.840.114 [id number] Yara 14:30:00 15:15:00 Visit Terry NICHOLAS 350.1.13.13 Seybold [id number] 2021-06-22 2021-06-22 Outpatient LAB68 YARA [place] [id number] Yara 13:50:00 13:50:00 Seybol d 2021-06-15 2021-06-15 Outpatient YARA DAVENPORT [id number] Yara 00:00:00 00:00:00 FLAQUITO Seybol d 2021-06-15 2021-06-15 Outpatient YARA CRUZ [id number] Yara 00:00:00 00:00:00 TERRY Seybol d 2021-06-05 2021-06-05 Outpatient NORM [facility] [id number] Yara 00:00:00 00:00:00 MD QING Seybol d 2021-05-30 2021-05-30 Outpatient LORENE SOLORZANO [id number] Yara 00:00:00 00:00:00 Seybol d 2021-05-19 2021-05-19 Outpatient YARA [place] [id number] Yara 15:45:00 15:45:00 Seybol d 2021-05-18 2021-05-18 Outpatient YARA LINK [id number] Yara 14:45:00 14:45:00 SOURAV Seybol d 2021-05-16 2021-05-16 Outpatient YARA CRUZ [id number] Yara 00:00:00 00:00:00 TERRY Seybol d 2021-05-12 2021-05-12 Outpatient YARA CRUZ [id number] Yara 09:00:00 09:00:00 TERRY Seybol d 2021-05-06 2021-05-06 Outpatient YARA PALUMBO [id number] Yara 15:15:00 15:15:00 CHRISTOPHER Se ybold 2021-05-04 2021-05-04 Outpatient YARA SOUTH [id number] Yara 13:30:00 13:30:00 TRINA Seybol d 2021-04-28 2021-04-28 Outpatient YARA SOUTH [id number] Yara 12:30:00 12:30:00 TRINA Seybol d 2021-04-22 2021-04-22 Outpatient YARA PALUMBO [id number] Yara 10:30:00 10:30:00 CHRISTOPHER Se ybold 2021-04-17 2021-04-17 Outpatient NANCY, YARA [place] [id number] Yara 00:00:00 00:00:00 TERRY Seybol d 2021-04-15 2021-04-15 Outpatient NANCY, [facility]ARA [place] [id number] Yara 00:00:00 00:00:00 TERRY Seybol d 2021-04-15 2021-04-15 Outpatient QUEVEDO, [facility]ARA [place] [id number] Yara 00:00:00 00:00:00 LINETTE Seybol d 2021-04-11 2021-04-11 Outpatient NANCY, [facility]ARA [place] [id number] Yara 00:00:00 00:00:00 TERRY Seybol d 2021-04-10 2021-04-10 Outpatient NANCY, YARA [place] [id number] Yara 00:00:00 00:00:00 TERRY Seybol d 2021-04-09 2021-04-09 Outpatient NANCY, YARA [place] [id number] Yara 00:00:00 00:00:00 TERRY Seybol d 2021-04-01 2021-04-01 Outpatient YARA [place] [id number] Yara 14:15:00 14:15:00 Seybol d 2021-04-01 2021-04-01 Outpatient YARA [place] [id number] Yara 14:10:00 14:10:00 Seybol d 2021-04-01 2021-04-01 [facility] 1.2.840.114 [id number] Yara 13:29:41 13:59:[address] [facility] [id number] Seybold [id number] 2021-03-12 2021-03-12 Outpatient NANCY [facility]ARA [place] [id number] Yara 00:00:00 00:00:00 TERRY Seybol d 2021-03-11 2021-03-11 Outpatient NANCY [facility] [place] [id number] Yara 00:00:00 00:00:00 TERRY Seybol d 2021-03-09 2021-03-09 Outpatient [id number] YARA [place] [id number] Yara 14:30:00 14:30:00 Seybol d 2021-03-09 2021-03-09 Office Brannon, [place] 1.2.840.114 [id number] Yara 13:54:34 14:09:34 Visit [facility] [id number] Se ybold AND 1.2.7.2.686 DIAGNOSTI [id number] CLYO 0 2021-03-03 2021-03-03 Outpatient YARA CRUZ [id number] Yara 10:00:00 10:00:00 TERRY Seybol d 2021-02-25 2021-02-25 Office Yue, [facility] [id number] Yara 13:03:25 13:18:25 Visit Brigid [facility] [id number] Se ybold [id number] 2021-02-24 2021-02-24 Outpatient YARA CRUZ [id number] Yara 00:00:00 00:00:00 TERRY Seybol d 2021-02-04 2021-02-04 Outpatient SIDIQYARA [id number] Yara 10:30:00 10:30:00 HOMAYON Seybol d 2021-01-19 2021-01-19 Outpatient AZIZYAO YARA [place] [id number] Yara 15:00:00 15:00:00 Seybol d 2021-01-18 2021-01-18 Outpatient YARA CRUZ [id number] Yara 00:00:00 00:00:00 TERRY Seybol d 2021-01-15 2021-01-15 Outpatient NANCYYARA BARAHONA [id number] Yara 00:00:00 00:00:00 TERRY Seybol d 2021-01-05 2021-01-05 Outpatient YARA CRUZ [id number] Yara 00:00:00 00:00:00 TERRY Seybol d 2020-12-07 2020-12-07 Outpatient YARA CRUZ [id number] Yara 00:00:00 00:00:00 TERRY Seybol d 2020-12-04 2020-12-04 Outpatient LAB68 YARA [place] [id number] Yara 15:00:00 15:00:00 Seybol d 2020-12-02 2020-12-02 Outpatient YAO BURK YARA 100 [id number] Yara 00:00:00 00:00:00 Seybol d 2020-12-02 2020-12-02 Outpatient NANCY YARA YARA [id number] Yara 00:00:00 00:00:00 TERRY Seybol d 2019-09-23 2019-09-23 [id number] 10:37:00 10:37:00 [id number] 2016-12-31 2016-12-31 Emergency [facility] [id number] Memoria 15:08:00 16:46:00 r Micheal 03 l [facility] 2016-12-31 2016-12-31 Emergency [facility] [id number] Memoria 15:08:00 16:46:00 r Micheal 03 l [facility] 2016-12-31 2016-12-31 Outpatient Méndez, [facility] [id number] 10:08:00 11:46:00 Liping 03 2014-08-26 2014-08-26 [id number] SLE 00:00:00 00:00:00 [id number] Results Test Description Test Time Test Comments [...] NOT 1092) ACCURATE CRE ATININE CLEARANCE IN MS EDICTING GLOMERULAR FILT RATION RATE. ESTIMATED GFR IS NOT APPLICABLE FOR DIALYSIS PATIENTS. 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 Operator ID - [email or web address] W/PLT COUNT & AUTO [id number] 04:35:00 Test Item Value Reference Range Interpretation [...] (BEAKER) (test code = 2801) SODIUM, RANDOM [id number] 20:41:00 Test Item Value Reference Range Interpretation Comments SODIUM URINE (BEAKER) (test code = 57 meq/L 243) Reference Range: No NormalsOperator ID - [id number], [id number] 20:22:00 Test Item Value Reference Range Interpretation Comments OSMOLALITY URINE (BEAKER) (test 196 mOsm/kg 40-1,400 code = 614) OSMOLALITY, [id number] 18:54:00 Test Item Value Reference Range Interpretation Comments OSMOLALITY, SERUM (BEAKER) (test 269 mOsm/kg 280-303 L code = 615) BASIC METABOLIC [id number] 18:48:00 Test Item Value Reference Range Interpretation [...] S NOT APPLICABLE FOR DIALYSIS PATIEN TS. 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 Operator ID - [id number] W/ REFLEX URINE [id number] 13:19:00 Test Item Value Reference Range Interpretation [...] = 1584) SOURCE(BEAKER) (test code = 2795) 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 Operator ID - [auto]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 Operator ID - techCT, [id number] 13:15:00Reason for exam:->abdominal painWhat is the patient's [...] PELLETS IN THE ABDOMEN AND LOWER CHEST. [place] llic pellets scattered throughout the soft tissues [...] MDReport Verified Date/Time: 09/23/2019 13:15:52 Reading Location: [address] Body Reading Room REHENSIVE METABOLIC [id number] 12:12:00 Test Item Value Reference Range Interpretation [...] S NOT APPLICABLE FOR DIALYSIS PATIEN TS. 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 Operator ID - [id number] W/PLT COUNT & AUTO [id number] 11:40:00 Test Item Value Reference Range Interpretation [...] Source 2016-12-31 10:45:00-00:00 Exam: Left elbow series [facility] Clinical Indication: - left elbow pain s/p [...] assess for occult fracture. JAVIER: CHRISTOFER 2016-12-31 10:45:00-00:00 Exam: Left elbow series [facility] Clinical Indication: - left elbow pain s/p [...] CHRISTOFER 2016-12-31 10:45:00-00:00 Exam: Left elbow series [facility] Clinical Indication: - left elbow pain s/p [...] walking dog and hit back of head [facility] Comparison: None TECHNIQUE: CT images were ob [...] 2. Chronic changes as described above. SL: [id number] 2016-12-31 10:38:36-00:00 Clinical Indication: - r/o I CH, on ASA, fall s/p walking dog and hit back of head [facility] Comparison: None TECHNIQUE: CT images were ob [...] 2. Chronic changes as described above. SL: [id number] 2016-12-31 10:38:36-00:00 Clinical Indication: - r/o I CH, on ASA, fall s/p walking dog and hit back of head [facility] Comparison: None TECHNIQUE: CT images were ob [...] frontal lobe at the level of the oivedo radiata to suggest atrophy versus chronic subdural [...] 2. Chronic changes as described above. SL: [id number]
[2022-11-15 08:18] LABS: Absolute Lymphocytes (CBC) 1.4 K/uL (0.7-4.9); Hematocrit 32.8 % (36.0-45.0); Lymphocytes % 16.4 % (15.3-44.8); MCV 80.6 fL (80-100); MPV 6.2 fL (7.6-11.3); RBC Red Blood Cell Count 4.07 M/uL (3.86-4.86)
[2022-11-15] MEDS ORDERED: MORPHINE 4 MG/ML SYR ONE (08:23)
[2022-11-15] MEDS ORDERED: ONDANSETRON 4 MG/2 ML VIAL ONE (08:26)
[2022-11-15 08:44] LABS: Albumin 3.3 g/dL (3.4-5.0); Bilirubin Total 0.3 mg/dL (0.2-1.0); Potassium 3.9 mEq/L (3.5-5.1); Protein, Total 6.8 g/dL (6.4-8.2)
--- NOTE | 2022-11-15 08:52 | RAD REPORT ---
EXAM DESCRIPTION: CT - Abdomen Pelvis W Contrast - 11/15/2022 8:31 am CLINICAL HISTORY: LLQ pain COMPARISON: Pelvis Wo Cont dated 11/05/2022; Lumbar Spine 3 Views dated 10/30/2022 TECHNIQUE: Thin cut axial CT imaging of the abdomen and pelvis was performed following intravenous a dministration of 100 mL Isovue 300. Multiplanar reformats were generated and reviewed. All CT scans are performed using dose optimization technique as appropriate and may include automated exposure control or mA/KV adjustment according to patient size. FINDINGS: Extensive burden of metallic radiodensities along the anterior abdominal wall, within the liver and right kidney, in the retroperitoneum, with few present along the undersurface of the gallbl adder, bilateral paracolic gutter, and left subdiaphragmatic region. Few scattered densities are pres ent along the right more than left chest wall, and right back. These result in streak artifact which limits evaluation. The lower densities were partially included on prior CT of the pelvis. No suspicious findings in the lung bases. The liver, spleen, and pancreas show no suspicious findings. Gallbladder and biliary tree are also wi thout suspicious finding. Symmetric renal function is seen with no hydronephrosis or suspicious renal mass. No dilated bowel loops or bowel wall thickening. Nonspecific short segment distal small bowel fluid f illing, could relate to diarrheal state. No free air, free fluid or inflammatory stranding. No hernia , mass or bulky lymphadenopathy. The urinary bladder is without significant finding. No suspicious bony findings. L3-L5 transpedicular fusion hardware. Grade 1 anterolisthesis of L2 over L3, measuring approximately 7 millimeter, with disc space widening and endplate irregularities along the L2-3 disc space. Mild in ferior endplate compression deformity at L2 with approximately 25% vertebral body height loss. The ti p of the right L3 transpedicular screw resides within the disc space, with mild distal periscrew luce ncy. IMPRESSION: Extensive burden of metallic radiodensities, suggestive of remote projectile injury. The se result in metallic streak artifact which limits evaluation. Disc space widening and endplate irregularities along the L2-3 disc space, with mild inferior endplat e compression deformity at L2, and anterolisthesis of L2 over L3. Tip of right L3 transpedicular scre w resides within the disc space with mild distal periscrew lucency. Findings may relate to hardware l oosening and instability. Please correlate clinically. Nonspecific short segment distal small bowel fluid filling, could relate to diarrheal state.
--- NOTE | 2022-11-15 09:22 | EDPHYS ---
Physician Documentation [facility] Name: Brionna Tee Age: 87 yrs Sex: Female : 1935 Arrival Date: 11/15/2022 Time: 07:38 Bed 16 Private MD: ED Physician Cameron Schwartz HPI: 11/15 08:22 This 87 yrs old Female presents to ER via EMS with complaints of Hip Pain. bs3 08:22 87yo f hx of chronic pain, previously seen by pain management presents after a fall 2 bs3 weeks ago, per pt/son she broke her pelvis but it is not operative. She has been unable to follow-up with orthopedics and her primary care doctor she ran out of pain medicine several days ago and since then her pain has been uncontrolled she also has been diagnosed with a UTI however her lower abdominal pain is not better denies fevers chills chest pain shortness of breath or anything else bothering her. Historical: - Allergies: 07:52 Acetaminophen; ko1 - PMHx: 07:52 chronic back pain; Hypercholesterolemia; Hypertensive disorder; Hypertensive disorder; ko1 - PSHx: 07:52 Total abdominal hysterectomy; ko1 - Immunization history:: Adult Immunizations up to date. - Social history:: Smoking status: Patient denies any tobacco usage or history of. ROS: 08:22 Constitutional: Negative for fever, chills bs3 08:22 All other systems are negative. Exam: 08:22 Constitutional: This is a well developed, well nourished patient who is awake, alert, bs3 and in no acute distress. Head/Face: Normocephalic, atraumatic. Eyes: Pupils equal round and reactive to light, extra-ocular motions intact. Lids and lashes normal. ENT: mmm, no posterior phyarngeal erythema Neck: Trachea midline, no thyromegaly, no neck stiffness Chest/axilla: Normal chest wall appearance and motion. Nontender with no deformity. No lesions are appreciated. Cardiovascular: Regular rate and rhythm with a normal S1 and S2. symmetric pulses in upper extremities Respiratory: Lungs have equal breath sounds bilaterally, clear to auscultation, no respiratory distress Abdomen/GI: Tender left lower quadrant greater than right lower quadrant MS/ Extremity: Pulses equal, no cyanosis. Neurovascular intact. Full, normal range of motion. Neuro: Awake and alert, GCS 15, oriented to person, place, time, and situation. Cranial nerves II-XII grossly intact. Motor strength 5/5 in all extremities. Sensory grossly intact. Vital Signs: 07:45 BP 194 / 72; Pulse 66; Resp 16; Temp 98.4; Pulse Ox 99% on R/A; ko1 10:15 BP 186 / 74; Pulse 72; Resp 16; Pulse Ox 99% ; ko1 MDM: 07:43 Patient medically screened. bs3 08:22 Data reviewed: vital signs, nurses notes. ED course: Reviewed prior chart patient found bs3 to have a sacral-kat fx but here tender in lower abd, will tx pain, will check labs, ct with contrast and reassess. 08:58 ED course: ct concerning for possible hardware instability, discussed with pt and bs3 family, strongly advised to f/u with their neurosurgeon syed, she has no acute neuro deficits and therefore does not require transfer. 11/15 08:03 Order name: CBC with Diff; Complete Time: 08:52 bs3 11/15 08:03 Order name: Comprehensive Metabolic Panel; Complete Time: 08:53 bs3 11/15 08:03 Order name: CT Abd/Pelvis - IV Contrast Only; Complete Time: 08:56 bs3 Administered Medications: 08:12 Drug: Ondansetron IVP 4 mg Route: IVP; Site: right forearm; ko1 09:48 Follow up: Response: No adverse reaction; Nausea is decreased ko1 08:15 Drug: morphine IVP or IV 4 mg Route: IVP; Infused Over: 4 mins; Site: right forearm; ko1 09:49 Follow up: Response: No adverse reaction; Pain is decreased ko1 09:38 Drug: oxyCODONE PO 10 mg Route: PO; ko1 09:49 Follow up: Response: No adverse reaction ko1 Disposition Summary: 11/15/22 09:22 Discharge Ordered Location: Home bs3 Problem: an acute exacerbation bs3 Symptoms: have improved bs3 Condition: Fair bs3 Diagnosis - Low back pain bs3 - Pelvic and perineal pain bs3 Followup: bs3 - With: Private Physician - When: 1 - 2 days - Reason: Re-evaluation by your physician Discharge Instructions: - Discharge Summary Sheet bs3 - Chronic Back Pain bs3 - Pelvic Pain, Female, [id number] bs3 Forms: - Medication Reconciliation Form bs3 - Thank You Letter bs3 - Antibiotic Education bs3 - Prescription Opioid Use bs3 Signatures: Dispatcher [employer] Cameron Vasquez MD MD bs3 Anne Rosas RN RN ko1
--- NOTE | 2022-11-15 09:22 | ER ---
Nurse's Notes [facility] Name: Brionna Tee Age: 87 yrs Sex: Female : 1935 Arrival Date: 11/15/2022 Time: 07:38 Bed 16 Private MD: Diagnosis: Low back pain;Pelvic and perineal pain Presentation: 11/15 07:45 Chief complaint: EMS states: called for increased left hip pain, she was seen here ko1 yesterday with same problem. Pain is much worse today. Coronavirus screen: At this time, the client does not indicate any symptoms associated with coronavirus-19. Ebola Screen: No symptoms or risks identified at this time. Initial Sepsis Screen: Does the patient meet any 2 criteria? No. Patient's initial sepsis screen is negative. Does the patient have a suspected source of infection? No. Patient's initial sepsis screen is negative. Risk Assessment: Do you want to hurt yourself or someone else? Patient reports no desire to harm self or others. Onset of symptoms is unknown. 07:45 Method Of Arrival: EMS: [facility] ko1 07:45 Acuity: OTILIA 3 ko1 Triage Assessment: 07:52 General: Appears in no apparent distress. uncomfortable, Behavior is calm, cooperative, ko1 appropriate for age. Pain: Complains of pain in left hip. Historical: - Allergies: 07:52 Acetaminophen; ko1 - PMHx: 07:52 chronic back pain; Hypercholesterolemia; Hypertensive disorder; Hypertensive disorder; ko1 - PSHx: 07:52 Total abdominal hysterectomy; ko1 - Immunization history:: Adult Immunizations up to date. - Social history:: Smoking status: Patient denies any tobacco usage or history of. Screenin:57 [facility] ED Fall Risk Assessment (Adult) History of falling in the last 3 months, ko1 including since admission No falls in past 3 months (0 pts) Confusion or Disorientation No (0 pts) Intoxicated or Sedated No (0 pts) Impaired Gait Yes (1 pt) Mobility Assist Device Used Yes (1 pt) Altered Elimination No (0 pt) Score/Fall Risk Level 0 - 2 = Low Risk Oriented to surroundings, Maintained a safe environment, Educated pt \T\ family on fall prevention, incl call for assistance when getting out of bed, Assessed \T\ reinforced patient's understanding of fall precautions, Provided non-skid footwear, Hourly rounding (assess needs \T\ fall precautionary measures) done, Used ambulatory aids as needed (educated on \T\ assisted with), Used gait belt as appropriate. Abuse screen: Denies threats or abuse. Denies injuries from another. Nutritional screening: No deficits noted. Tuberculosis screening: No symptoms or risk factors identified. Assessment: 07:57 Neuro: No deficits noted. Cardiovascular: No deficits noted. Respiratory: No deficits ko1 noted. GI: No deficits noted. : No deficits noted. EENT: No deficits noted. Derm: No deficits noted. Musculoskeletal: Reports pain in left hip. Vital Signs: 07:45 BP 194 / 72; Pulse 66; Resp 16; Temp 98.4; Pulse Ox 99% on R/A; ko1 10:15 BP 186 / 74; Pulse 72; Resp 16; Pulse Ox 99% ; ko1 ED Course: 07:40 Patient arrived in ED. ss 07:43 Cameron Schwartz MD is Attending Physician. bs3 07:49 Anne Rosas RN is Primary Nurse. ko1 07:52 Triage completed. ko1 07:52 Arm band placed on right wrist. Patient placed in an exam room, on a stretcher, on ko1 pulse oximetry, Patient notified of wait time. 07:57 Patient has correct armband on for positive identification. Placed in gown. Bed in low ko1 position. Call light in reach. Side rails up X2. Pulse ox on. NIBP on. Door closed. Noise minimized. Lights dimmed. Warm blanket given. 07:57 Maintain EMS IV. Dressing intact. Site clean \T\ dry. Gauge \T\ site: 20g right FA. ko 1 08:12 Comprehensive Metabolic Panel Sent. ko1 08:12 CBC with Diff Sent. ko1 08:33 CT Abd/Pelvis - IV Contrast Only In Process Unspecified. EDMS 10:15 No provider procedures requiring assistance completed. IV discontinued, intact, ko1 bleeding controlled, No redness/swelling at site. Pressure dressing applied. Administered Medications: 08:12 Drug: Ondansetron IVP 4 mg Route: IVP; Site: right forearm; ko1 09:48 Follow up: Response: No adverse reaction; Nausea is decreased ko1 08:15 Drug: morphine IVP or IV 4 mg Route: IVP; Infused Over: 4 mins; Site: right forearm; ko1 09:49 Follow up: Response: No adverse reaction; Pain is decreased ko1 09:38 Drug: oxyCODONE PO 10 mg Route: PO; ko1 09:49 Follow up: Response: No adverse reaction ko1 Medication: 07:57 VIS not applicable for this client. ko1 Outcome: 09:22 Discharge ordered by . bs3 10:15 Discharged to home via wheelchair, with family. ko1 10:15 Condition: stable 10:15 Discharge instructions given to patient, family, Instructed on discharge instructions, follow up and referral plans. Demonstrated understanding of instructions, follow-up care. 10:16 Patient left the ED. ko1 Signatures: Dispatcher [employer] EDElly Cramer RN RN Cameron Howell MD MD bs3 Anne Rosas RN RN ko1
[2022-11-15] MEDS ORDERED: OXYCODONE *CR* 10 MG TAB PO ONE (09:41)
[2022-11-15 10:23] VITALS: TEMP 98.4; O2SAT 99
[2022-11-15 10:26] VITALS: BP 186/74
== END 2022-11-15 10:16 | disposition home or self-care (01) ==
LOC: ER 07:38
DX: M54.50 Low back pain, unspecified (principal); R10.2 Pelvic and perineal pain; I10 Essential (primary) hypertension; Z88.6 Allergy status to analgesic agent
CPT/HCPCS: 85025; 36415; 80053; 74177; Q9967; J2405

== ENCOUNTER 2024-03-21 06:10 | Emergency (ER) | payer OTHER ==
[2024-03-21 06:48] LABS: Absolute Basophils 0.1 K/uL (0-0.5); Absolute Eosinophils 0.3 K/uL (0-0.5); Absolute Lymphocytes (CBC) 1.4 K/uL (0.7-4.9); Absolute Monocytes 0.9 K/uL (0.1-1.3); Absolute Neutrophil 6.5 K/uL (1.8-8.0); Basophils % 0.6 % (0-1.3); Eosinophils % 2.8 % (0-4.4); Hematocrit 33.3 % (36.0-45.0); Hemoglobin 11.1 g/dL (12.0-15.0); Lymphocytes % 14.9 % (15.3-44.8); MCH 27.1 pg (27.0-35.0); MCHC 33.5 g/dL (32.0-36.0); MCV 81.1 fL (80-100); MPV 7.1 fL (7.6-11.3); Monocytes % 10.2 % (3.3-12.3); Neutrophils % 71.5 % (41.7-73.7); Platelets 271 thou/uL (152-406)
[2024-03-21 07:21] LABS: Anion Gap 8.1 mEq/L (5.0-15.0); Potassium 4.1 mEq/L (3.5-5.1); Troponin High Sensitivity 17.4 pg/mL (<58.9)
--- NOTE | 2024-03-21 07:34 | RAD REPORT ---
EXAMINATION: CT HEAD WITHOUT CONTRAST CT CERVICAL SPINE WITHOUT CONTRAST CLINICAL INDICATION: Head and neck injury status post fall. Head and neck pain TECHNIQUE: Axial CT images from the skull base to the vertex without intravenous contrast. Axial CT i mages through the cervical spine were obtained without intravenous contrast. Sagittal and coronal reformatted images were created from the data set. Coronal and sagittal reformatted images were creat ed from the data set. One or more of the following dose reduction techniques were used: Automated exposure control, adjustment of the mA and/or kV according to patient size, and/or iterative reconstr uction. Unless otherwise specified, incidental findings do not require dedicated imaging follow-up. [id number]. Comparison: none FINDINGS: Intracranial bleed not noted. Ventricles are normal in caliber. 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 Prominent cerebral at rophy. No fluid within the mastoids and sinuses. Mild chronic sphenoid sinusitis. No fracture or dislocation is seen involving the cervical spine. Spondylosis cervical spine IMPRESSION: No acute intracranial abnormality noted A cervical fracture is not seen. If the patient continues to have symptoms to suggest acute DIRECTOR OF PHYSIOTHERAPY SERVICES/spinal pathology then MRI would be rec ommended
--- NOTE | 2024-03-21 07:39 | RAD REPORT ---
Exam:Shoulder Left 2+ Views HISTORY: Left shoulder pain FINDINGS: No fracture or dislocation seen. Osteoporosis
--- NOTE | 2024-03-21 07:39 | RAD REPORT ---
Procedure: Chest Single View HISTORY: Chest pain COMPARISON: none FINDINGS: The lungs appear clear of acute infiltrate. No significant pleural effusion noted. The heart is normal size. Many metallic fragments overlie the arms, chest and abdomen. IMPRESSION: No acute abnormality is displayed.
--- NOTE | 2024-03-21 08:11 | EDPHYS ---
Physician Documentation [facility] Name: Brionna Tee Age: 88 yrs Sex: Female : 1935 Arrival Date: 03/21/2024 Time: 06:10 Bed 16 Private MD: ED Physician Paresh Cruz HPI: 03/21 06:19 This 88 yrs old Female presents to ER via Unassigned with complaints of Fall ec2 Injury. 06:19 Patient arrives today for evaluation after a ground-level fall. States that she was ec2 trying to move a heavy object subsequently lost her balance and fell and landed on her left shoulder. No LOC, no head or neck pain, reports that she was on proximately 2 hours. Patient reports no blood thinners. Patient denies any prodromal symptoms.. Historical: - Allergies: 06:20 ACETAMINOPHEN; rg5 - PMHx: 06:20 Hypercholesterolemia; Hypertensive disorder; Pelvic fracture; rg5 - PSHx: 06:20 back surgery; Total abdominal hysterectomy; rg5 - Immunization history:: Adult Immunizations not up to date. - Infectious Disease History:: Denies. - Social history:: Smoking status: Patient denies any tobacco usage or history of. Patient/guardian denies using tobacco products. ROS: 06:19 Constitutional: as per hpi ec2 Exam: 06:19 Constitutional: GEN: NAD Head: atraumatic Eyes: EOMI Ears: External ears are ec2 normal. CV: regular rate LUNGS: no respiratory distress ABD: non-distended SKIN: no evidence of rashes MSK: Left shoulder with TTP around the AC joint. Vital Signs: 06:15 BP 215 / 88; Pulse 89; Resp 19; Temp 98(O); Pulse Ox 97% on R/A; Weight 61.23 kg; rg5 Height 5 ft. 4 in. ; Pain 2/10; 06:30 BP 192 / 78; Pulse 87; Resp 18; Pulse Ox 97% on R/A; rg5 08:30 BP 165 / 77; Pulse 80; Resp 17; Pulse Ox 99% on R/A; rs5 06:15 Body Mass Index 23.17 (61.23 kg, 162.56 cm) rg5 06:15 Pain Scale: Adult rg5 Karl Coma Score: 06:15 Eye Response: spontaneous(4). Motor Response: obeys commands(6). Verbal Response: rg5 oriented(5). Total: 15. MDM: 06:12 Medical Screening Exam initiated ec2 06:19 Data reviewed: vital signs. ED course: Patient arrives today for evaluation after ec2 ground-level fall with complaints of shoulder pain. Examination remarkable for shoulder findings as noted above. Will obtain radiograph of the chest as well as shoulder, obtain CT scan of the head and C-spine given the patient's age. Will also obtain lab work to evaluate for rhabdomyolysis given the patient's downtime. . 07:14 ED course: EKG independently reviewed and interpreted by me, shows normal sinus rhythm, ec2 rate of 59, no acute ST segment ovation, intervals are nonactionable. Patient signed out to oncoming physician with pending workup. . 07:15 Transition of care: After a detail discussion of the patient's case, care is ec2 transferred to Paresh Cruz MD. 08:09 Differential diagnosis: closed head injury, contusion, fracture, sprain, strain. rn Counseling: I had a detailed discussion with the patient and/or guardian regarding the historical points, exam findings, and any diagnostic results supporting the discharge/admit diagnosis, lab results, radiology results, the need for outpatient follow up, to return to the emergency department if symptoms worsen or persist or if there are any questions or concerns that arise at home. Special discussion: I discussed with the patient/guardian in detail that at this point there is no indication for admission to the hospital. It is understood, however, that if the symptoms persist or worsen the patient needs to return immediately for re-evaluation. ED course: Patient signed out to me by Dr. Allen, plan was to discharge if imaging was negative. He felt that it was a mechanical fall and no secondary cause. X-rays and CAT scan negative for acute fracture or traumatic finding. Will discharge home with return precautions.. 03/21 06:15 Order name: Basic Metabolic Panel; Complete Time: ec2 03/21 06:15 Order name: CBC with Diff; Complete Time: 06:52 ec2 03/21 06:15 Order name: Troponin HS; Complete Time: ec2 03/21 06:15 Order name: CK; Complete Time: ec2 03/21 06:15 Order name: XRAY Chest (1 view); Complete Time: 08:00 ec2 03/21 06:15 Order name: Shoulder Left (2 View) XRAY; Complete Time: 08:00 ec2 03/21 06:15 Order name: CT Head C Spine; Complete Time: 08:00 ec2 03/21 06:15 Order name: EKG; Complete Time: 06:16 ec2 03/21 06:15 Order name: Cardiac monitoring; Complete Time: 06:25 ec2 03/21 06:15 Order name: EKG - Nurse/Tech; Complete Time: 07:14 ec2 03/21 06:15 Order name: IV Saline Lock; Complete Time: 06:44 ec2 03/21 06:15 Order name: Labs collected and sent; Complete Time: 06:44 ec2 03/21 06:15 Order name: O2 Per Protocol; Complete Time: 06:25 ec2 03/21 06:15 Order name: O2 Sat Monitoring; Complete Time: 06:25 ec2 Administered Medications: No medications were administered Disposition Summary: 03/21/24 08:10 Discharge Ordered Notes: Location: Home rn Problem: new rn Symptoms: have improved rn Condition: Stable rn Diagnosis - Fall on same level, unspecified rn - Contusion of left shoulder rn Followup: rn - With: Private Physician - When: As needed - Reason: Recheck today's complaints, Re-evaluation by your physician Discharge Instructions: - Discharge Summary Sheet rn - Contusion rn - Fall Prevention in the Home, Adult rn - Shoulder Pain rn Forms: - SBAR form bd - Medication Reconciliation Form rn - Antibiotic erisa attorney - Prescription Opioid Use rn - Patient Portal Instructions rn - Leadership Thank You Letter rn Signatures: Dispatcher [employer] EDIN Paresh Cruz MD MD rn Corral, Edwin, MD MD ec2 Larry Kang, RN RN rg5 Corrections: (The following items were deleted from the chart) 06:16 06:16 BASIC METABOLIC PANEL+C.LAB.BRZ ordered. EDMS EDMS 06:16 06:16 CBC+H.LAB.BRZ ordered. EDMS EDMS 06:16 06:16 Troponin High Sensitivity+C.LAB.BRZ ordered. EDMS EDMS 06:16 06:16 CREATINE PHOSPHOKINASE+C.LAB.BRZ ordered. EDMS EDMS
--- NOTE | 2024-03-21 08:11 | ER ---
Nurse's Notes [facility] Name: Brionna Tee Age: 88 yrs Sex: Female : 1935 Arrival Date: 03/21/2024 Time: 06:10 Bed 16 Private MD: Diagnosis: Fall on same level, unspecified;Contusion of left shoulder Presentation: 03/21 06:15 Chief complaint: EMS states: patient calls us because of pain on the left shoulder and rg5 left buttocks secondary to fall 2 hrs [employer] [employer]. negative LOC. Coronavirus screen: Vaccine status: Patient reports being unvaccinated. Client denies travel out of the [place] in the last 14 days. Ebola Screen: Patient negative for fever greater than or equal to 101.5 degrees Fahrenheit, and additional compatible Ebola Virus Disease symptoms. Initial Sepsis Screen: Does the patient meet any 2 criteria? No. Patient's initial sepsis screen is negative. Does the patient have a suspected source of infection? No. Patient's initial sepsis screen is negative. Risk Assessment: Do you want to hurt yourself or someone else? Patient reports no desire to harm self or others. Onset of symptoms was March 21, 2024. Mechanism of Injury: Fall from standing position. 06:15 Method Of Arrival: EMS: [facility] rg5 06:15 Acuity: OTILIA 3 rg5 Triage Assessment: 06:20 General: Appears in no apparent distress. comfortable, Behavior is calm, cooperative, rg5 appropriate for age. Pain: Complains of pain in left shoulder Pain currently is 6 out of 10 on a pain scale. Quality of pain is described as aching, Pain began 2 hours ago. EENT: EENT: No deficits noted. Neuro: Level of Consciousness is awake, alert, obeys commands, Oriented to person, place, time. Cardiovascular: Denies chest pain, Patient's skin is warm and dry. Respiratory: Airway is patent Trachea midline Respiratory effort is even, unlabored, Respiratory pattern is regular, symmetrical. GI: Abdomen is round non-distended. : No signs and/or symptoms were reported regarding the genitourinary system. Derm: Skin is intact, Skin is dry, Skin is normal. Musculoskeletal: Circulation, motion, and sensation intact. Range of motion: intact in all extremities. Historical: - Allergies: 06:20 ACETAMINOPHEN; rg5 - PMHx: 06:20 Hypercholesterolemia; Hypertensive disorder; Pelvic fracture; rg5 - PSHx: 06:20 back surgery; Total abdominal hysterectomy; rg5 - Immunization history:: Adult Immunizations not up to date. - Infectious Disease History:: Denies. - Social history:: Smoking status: Patient denies any tobacco usage or history of. Patient/guardian denies using tobacco products. Screenin:15 [facility] ED Fall Risk Assessment (Adult) History of falling in the last 3 months, rg5 including since admission No falls in past 3 months (0 pts) Confusion or Disorientation No (0 pts) Intoxicated or Sedated No (0 pts) Impaired Gait No (0 pts) Mobility Assist Device Used Yes (1 pt) Altered Elimination Yes (1 pt) Score/Fall Risk Level 0 - 2 = Low Risk Oriented to surroundings, Maintained a safe environment, Hourly rounding (assess needs \T\ fall precautionary measures) done. Abuse screen: Denies threats or abuse. Nutritional screening: On. Tuberculosis screening: No symptoms or risk factors identified. Assessment: 06:24 Reassessment: see triage assessment. rg5 07:00 General: Appears in no apparent distress. uncomfortable, Behavior is calm, cooperative. rs5 Pain: Complains of pain in buttocks and left shoulder Pain currently is 3 out of 10 on a pain scale. Neuro: Level of Consciousness is awake, alert, obeys commands, Oriented to person, place, time, situation. Cardiovascular: Patient's skin is warm and dry. Respiratory: Airway is patent Respiratory effort is even, unlabored, Respiratory pattern is regular, symmetrical. GI: Abdomen is round non-distended, Abd is soft and non tender X 4 quads. : No signs and/or symptoms were reported regarding the genitourinary system. EENT: No signs and/or symptoms were reported regarding the EENT system. Derm: Skin is intact, Skin is pink, warm \T\ dry. Musculoskeletal: Reports generalized weakness. 08:01 Reassessment: Patient and/or family updated on plan of care and expected duration. Pain rs5 level reassessed. Patient is alert, oriented x 3, equal unlabored respirations, skin warm/dry/pink. 08:37 Reassessment: Patient and/or family updated on plan of care and expected duration. Pain rs5 level reassessed. Patient is alert, oriented x 3, equal unlabored respirations, skin warm/dry/pink. Vital Signs: 06:15 BP 215 / 88; Pulse 89; Resp 19; Temp 98(O); Pulse Ox 97% on R/A; Weight 61.23 kg; rg5 Height 5 ft. 4 in. ; Pain 2/10; 06:30 BP 192 / 78; Pulse 87; Resp 18; Pulse Ox 97% on R/A; rg5 08:30 BP 165 / 77; Pulse 80; Resp 17; Pulse Ox 99% on R/A; rs5 06:15 Body Mass Index 23.17 (61.23 kg, 162.56 cm) rg5 06:15 Pain Scale: Adult rg5 Karl Coma Score: 06:15 Eye Response: spontaneous(4). Motor Response: obeys commands(6). Verbal Response: rg5 oriented(5). Total: 15. ED Course: 06:11 Patient arrived in ED. rv1 06:12 Peña Allen MD is Attending Physician. ec2 06:15 Larry Kang RN is Primary Nurse. rg5 06:15 Patient has correct armband on for positive identification. Bed in low position. Call rg5 light in reach. Side rails up X 1. 06:15 No provider procedures requiring assistance completed. rg5 06:20 Triage completed. rg5 06:20 Arm band placed on left wrist. rg5 06:37 XRAY Chest (1 view) In Process Unspecified. EDMS 06:37 Shoulder Left (2 View) XRAY In Process Unspecified. EDMS 06:40 Inserted saline lock: 20 gauge in right forearm, using aseptic technique. Blood rg5 collected. Flushed with 10 mL NS. 07:12 CT Head C Spine In Process Unspecified. EDMS 07:17 Attending Physician role handed off by Peña Allen MD ec2 07:17 Paresh Cruz MD is Attending Physician. ec2 08:45 IV discontinued, intact, bleeding controlled, No redness/swelling at site. Pressure rs5 dressing applied. Administered Medications: No medications were administered Medication: 06:15 VIS not applicable for this client. rg5 Outcome: 08:10 Discharge ordered by MD. rn 08:45 Discharged to home via wheelchair, rs5 08:45 Condition: stable rs5 08:45 Discharge instructions given to patient, family, Instructed on discharge instructions, follow up and referral plans. Demonstrated understanding of instructions, follow-up care, 08:47 Patient left the ED. rs5 Signatures: Dispatcher [employer] Paresh Ortiz MD MD rn Villegas, Rebecca rv1 Juan Antonio Ames RN RN rs5 Peña Allen MD MD ec2 Larry Kang RN RN rg5 Corrections: (The following items were deleted from the chart) 09:40 07:00 Pain: Complains of pain in buttocks Pain currently is 3 out of 10 on a pain rs5 scale. rs5 09:40 07:00 Neuro: Level of Consciousness is awake, alert, obeys commands, Oriented to rs5 person, place, time, situation, rs5
[2024-03-21 08:55] VITALS: TEMP 98; O2SAT 97
[2024-03-21 09:01] VITALS: BP 192/78
--- NOTE | 2024-03-21 14:46 | EKG ---
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
== END 2024-03-21 08:47 | disposition home or self-care (01) ==
LOC: ER 06:10
DX: S40.012A Contusion of left shoulder, initial encounter (principal); W18.30XA Fall on same level, unspecified, initial encounter; I10 Essential (primary) hypertension
CPT/HCPCS: 36415; 70450; 71045; 72125; 80048; 82550; 84484; 85025; 93005; 99284

== ENCOUNTER 2024-07-13 11:36 | Inpatient (IN) | payer MEDICAID ==
[2024-07-13] MEDS ORDERED: ONDANSETRON 4 MG/2 ML VIAL ONE (12:16)
[2024-07-13] MEDS ORDERED: HYDROMORPHONE HCL 1 MG/ML INJ ONE (12:16)
[2024-07-13] MEDS ORDERED: APIXABAN 5 MG TABLET ONE (12:16)
[2024-07-13] MEDS ORDERED: FAMOTIDINE 20 MG/2 ML VIAL IV ONE (12:17)
[2024-07-13] MEDS ORDERED: ASPIRIN 81 MG CHEWABLE TABLET ONE (12:17)
--- NOTE | 2024-07-13 12:20 | RAD REPORT ---
EXAM: CT brain without contrast HISTORY: TRAUMA COMPARISON: None TECHNIQUE: Multiple contiguous axial images were obtained and a CT of the brain without contrast. Sag ittal and coronal reformats were performed. One or more of the following dose reduction techniques were used: Automated exposure control, adjust ment of the mA and/or kV according to patient size, and/or iterative reconstruction. FINDINGS: No evidence of hydrocephalus, intracranial hemorrhage, or extra-axial fluid collection. Moderate brain atrophy. No evidence of midline shift or areas of brain edema. The calvarium is intact. Mild fluid is seen in the right sphenoid sinus. Paranasal sinuses and mastoi ds are otherwise clear. IMPRESSION: No evidence of acute intracranial abnormality. Moderate brain atrophy. EXAM: CT of the cervical spine without contrast HISTORY: Neck pain, injury TRAUMA TECHNIQUE: Multiple contiguous axial images were obtained in a CT of the cervical spine without contr ast. Sagittal and coronal reformats were performed. FINDINGS: The vertebral bodies demonstrate normal height and alignment. No evidence of acute fracture or subluxation.. Moderate mid and lower cervical degenerative changes. No prevertebral soft tissue swelling is seen. The posterior facets are well aligned. Normal alignment of the skull base with the cervical spine is seen. The lung apices are unremarkable. IMPRESSION: No evidence of acute osseous abnormality of the cervical spine.
[2024-07-13] MEDS ORDERED: LIDOCAINE 2% W/EPI 1:200,000 MPF 20 ML VIAL IM ONE (12:25)
[2024-07-13] MEDS ORDERED: LIDOCAINE 1% MPF 2 ML AMPULE ONE (12:25)
[2024-07-13] MEDS ORDERED: NA CHLORIDE 0.9% 500 ML ONE ×2 (12:26→15:47)
[2024-07-13] MEDS ORDERED: TDAP (DIPHTH,PERTUSS(ACELL),TET VAC) 0.5 ML VIAL IMVAC ONE (12:26)
[2024-07-13] MEDS ORDERED: CEFAZOLIN SODIUM 1 GM/VIAL ONE (12:26)
[2024-07-13] MEDS ORDERED: LIDOCAINE 1% 20 ML MDV ONE (12:27)
--- NOTE | 2024-07-13 12:37 | RAD REPORT ---
EXAM: CT CHEST, ABDOMEN AND PELVIS WITHOUT CONTRAST CLINICAL INDICATION: JAUNDICE TECHNIQUE: CT chest, abdomen and pelvis was performed without contrast, as per department protocol. A xial, sagittal and coronal reconstructions were obtained. One or more of the following dose reduction techniques were used: Automated exposure control, adjustment of the mA and/or kV according to patient size, and/or iterative reconstruction. Unless otherwise specified, incidental findings do not require dedicated imaging follow-up. Examination is limited by the lack of intravenous contrast material. COMPARISON: 06/07/2024 FINDINGS: 2-3 cm left thyroid nodule. LUNGS: Mild interstitial prominence bilaterally with groundglass lung opacities. PLEURA: No pleural effusion. No pneumothorax. MEDIASTINUM AND LYMPH NODES: No mediastinal mass or fluid collection. Normal size mediastinal, hilar, and axillary lymph nodes. Numerous metallic foreign bodies. OSSEOUS STRUCTURES AND CHEST WALL: Destructive changes again seen at the left sternoclavicular joint with soft tissue component measuring 4.5 x 4.0 cm. LIVER: Normal in size and contour. No focal lesion or biliary dilatation. Numerous metallic foreign b odies creating artifact. PANCREAS: No mass, ductal dilation, or temi-pancreatic fluid. SPLEEN: Normal size. No focal lesion. ADRENALS: Normal; no mass. KIDNEYS: Normal size and contour. No hydronephrosis. URINARY BLADDER: Normal contour. GASTROINTESTINAL TRACT: No bowel obstruction, free air, significant free fluid or abscess. APPENDIX: Normal appendix. LYMPH NODES: No lymphadenopathy. MUSCULOSKELETAL: S-shaped scoliosis of the thoracolumbar spine. Fusion hardware is present with posto perative changes of the lumbar spine. OTHER: IMPRESSION: No acute abnormality is detected. Possible mild pulmonary edema noted. Destructive changes left sternoclavicular joint again noted similar to comparison study. There is a large amount of metallic artifact from small BBs throughout the study limiting examination quality.
[2024-07-13 12:44] LABS: Absolute Eosinophils 0.2 K/uL (0-0.5); Absolute Monocytes 0.6 K/uL (0.1-1.3); Absolute Neutrophil 3.8 K/uL (1.8-8.0); Basophils % 0.7 % (0-1.3); Eosinophils % 3.2 % (0-4.4); Hematocrit 29.4 % (36.0-45.0); Hemoglobin 9.9 g/dL (12.0-15.0); Lymphocytes % 17.8 % (15.3-44.8); MCH 27.2 pg (27.0-35.0); MCHC 33.7 g/dL (32.0-36.0); MCV 80.6 fL (80-100); MPV 7.2 fL (7.6-11.3); Monocytes % 10.1 % (3.3-12.3); Neutrophils % 68.2 % (41.7-73.7); Platelets 276 thou/uL (152-406); RBC Red Blood Cell Count 3.64 M/uL (3.86-4.86); Red Cell Distribution Width 14.9 % (12.1-15.2)
[2024-07-13 12:48] LABS: PT Prothrombin Time 11.3 SECONDS (9.7-12.7); Protime INR 1.08
--- NOTE | 2024-07-13 12:52 | RAD REPORT ---
EXAMINATION: ONE VIEW CHEST XR CLINICAL INDICATION: COUGH TECHNIQUE: Frontal chest projection is submitted. Examination is limited by patient positioning and t echnique. COMPARISON: 05/09/2024 FINDINGS: Mild bilateral pulmonary opacities are present. The heart is mildly prominent in size. Trace right pl eural fluid. No displaced fractures identified. Numerous metallic foreign bodies seen. IMPRESSION: Mild bilateral interstitial opacities could indicate interstitial edema or bronchitis.
[2024-07-13 13:01] LABS: Albumin 3.2 g/dL (3.4-5.0); Anion Gap 10.1 mEq/L (5.0-15.0); Bilirubin Direct 0.2 mg/dL (0-0.2); Bilirubin Indirect, Calculated 0.1 mg/dL (0.2-0.8); Bilirubin Total 0.3 mg/dL (0.2-1.0); Globulin 3.1 g/dL (2.3-3.5); Magnesium 1.7 mg/dL (1.6-2.4); Potassium 4.1 mEq/L (3.5-5.1); Protein, Total 6.3 g/dL (6.4-8.2); Troponin High Sensitivity 32.1 pg/mL (<58.9)
[2024-07-13] MEDS ORDERED: DERMABOND SKIN ADHESIVE TOP ONE (13:41)
[2024-07-13] MEDS ORDERED: Mastisol Adhesive Liq ONE (13:42)
[2024-07-13 14:20] LABS: Specific Gravity 1.006 (1.005-1.030); Sqamous Epithelial <5 /HPF (None Seen); Urine Bacteria None Seen /HPF (<20); Urine Bilirubin NEGATIVE (Negative); Urine Blood Negative (Negative); Urine Clarity Turbid (Clear); Urine Color Colorless (Yellow); Urine Culture Reflex Order REFLEXED; Urine Glucose NEGATIVE (Negative); Urine Ketones NEGATIVE (Negative); Urine Microscopic Reflex YN ORDER UMIC; Urine Nitrite NEGATIVE (Negative); Urine Protein NEGATIVE (Negative); Urine RBC <5 /HPF (None Seen); Urine Urobilinogen Normal (Normal); Urine pH 7.5 (5.0-7.0)
--- NOTE | 2024-07-13 14:27 | EDPHYS ---
Physician Documentation [facility] Name: Brionna Tee Age: 88 yrs Sex: Female : 1935 Arrival Date: 07/13/2024 Time: 11:36 Bed 3 Private MD: ED Physician Demetris Junior HPI: 07/13 14:16 This 88 yrs old Female presents to ER via EMS with complaints of Fall Injury. sheri 14:16 Details of fall: The patient fell from a height. sheri 14:17 Onset: The symptoms/episode began/occurred just prior to arrival. Associated injuries: sheri The patient sustained injury to the head. Severity of symptoms: At their worst the symptoms were moderate, in the emergency department the symptoms are unchanged. The patient has not experienced similar symptoms in the past. Historical: - Allergies: 11:58 ACETAMINOPHEN; ko1 - Home Meds: 11:58 Unable to obtain [Active]; ko1 - PMHx: 11:58 Hypercholesterolemia; Hypertensive disorder; Pelvic fracture; ko1 - PSHx: 11:58 back surgery; Total abdominal hysterectomy; ko1 - Immunization history:: Adult Immunizations unknown. - Infectious Disease History:: Denies. - Social history:: Smoking status: Patient denies any tobacco usage or history of. ROS: 14:17 Constitutional: Negative for fever, chills, and weight loss, Eyes: Negative for injury, sheri pain, redness, and discharge, ENT: Negative for injury, pain, and discharge, Neck: Negative for injury, pain, and swelling, Cardiovascular: Negative for chest pain, palpitations, and edema, Respiratory: Negative for shortness of breath, cough, wheezing, and pleuritic chest pain, Abdomen/GI: Negative for abdominal pain, nausea, vomiting, diarrhea, and constipation, Back: Negative for injury and pain, : Negative for injury, bleeding, discharge, and swelling, Psych: Negative for depression, anxiety, suicide ideation, homicidal ideation, and hallucinations, Allergy/Immunology: Negative for hives, rash, and allergies, Endocrine: Negative for neck swelling, polydipsia, polyuria, polyphagia, and marked weight changes, Hematologic/Lymphatic: Negative for swollen nodes, abnormal bleeding, and unusual bruising, 14:17 MS/extremity: Positive for injury or acute deformity, decreased range of motion, pain, of the right arm, left arm and right leg, 14:17 Skin: Positive for pallor, Exam: 14:17 Constitutional: This is a well developed, well nourished patient who is awake, alert, sheri and in no acute distress. Eyes: Pupils equal round and reactive to light, extra-ocular motions intact. Lids and lashes normal. Conjunctiva and sclera are non-icteric and not injected. Cornea within normal limits. Periorbital areas with no swelling, redness, or edema. ENT: Nares patent. No nasal discharge, no septal abnormalities noted. Tympanic membranes are normal and external auditory canals are clear. Oropharynx with no redness, swelling, or masses, exudates, or evidence of obstruction, uvula midline. Mucous membranes moist. Neck: Trachea midline, no thyromegaly or masses palpated, and no cervical lymphadenopathy. Supple, full range of motion without nuchal rigidity, or vertebral point tenderness. No Meningismus. Chest/axilla: Normal chest wall appearance and motion. Nontender with no deformity. No lesions are appreciated. Cardiovascular: Regular rate and rhythm with a normal S1 and S2. No gallops, murmurs, or rubs. Normal PMI, no JVD. No pulse deficits. Respiratory: Lungs have equal breath sounds bilaterally, clear to auscultation and percussion. No rales, rhonchi or wheezes noted. No increased work of breathing, no retractions or nasal flaring. Abdomen/GI: Soft, non-tender, with normal bowel sounds. No distension or tympany. No guarding or rebound. No evidence of tenderness throughout. Back: No spinal tenderness. No costovertebral tenderness. Full range of motion. MS/ Extremity: Pulses equal, no cyanosis. Neurovascular intact. Full, normal range of motion., bilateral aka Neuro: Awake and alert, GCS 15, oriented to person, place, time, and situation. Cranial nerves II-XII grossly intact. Motor strength 5/5 in all extremities. Sensory grossly intact. Cerebellar exam normal. Normal gait. Psych: Awake, alert, with orientation to person, place and time. Behavior, mood, and affect are within normal limits. 14:17 Head/face: Noted is contusion, a laceration(s), that is deep, 2.5 cm(s), 14:27 ECG was reviewed by the Attending Physician. [facility] Vital Signs: 11:54 BP 172 / 77; Pulse 64; Resp 18 S; Temp 97.3(O); Pulse Ox 97% on R/A; aa5 12:40 BP 171 / 75; Pulse 64; Resp 18 S; Pulse Ox 97% on R/A; aa5 13:30 BP 185 / 80; Pulse 64; Resp 15; Pulse Ox 99% ; jl7 14:15 BP 166 / 62; Pulse 65; Resp 15; Pulse Ox 98% ; jl7 15:00 BP 192 / 87; Pulse 69; Resp 15; Pulse Ox 96% ; jl7 16:30 BP 165 / 75; Pulse 77; Resp 15; Pulse Ox 100% on R/A; ko1 Alpine Coma Score: 14:19 Eye Response: spontaneous(4). Motor Response: obeys commands(6). Verbal Response: sheri oriented(5). Total: 15. Laceration: 17:33 Wound Repair of 2.5cm ( 1.0in ) subcutaneous laceration to forehead. Irregularly sheri shaped.. Arterial bleeding noted.. Distal neuro/vascular/tendon intact. Anesthesia: Local anesthetic administered with 8 mls of 1% lidocaine w/ Epi. Wound prep: Moderate cleansing with betadine by wa. Skin closed with 6 4-0 Prolene using interrupted sutures and sterile technique. Dressed with Neosporin, pressure dressing, non-adherent dressing. Patient tolerated well. MDM: 11:46 Medical Screening Exam initiated sheri 14:19 Differential diagnosis: Contusion of Hematoma on Laceration of Intracranial bleed- [facility] subdural, epidural, subarachnoid, intracerebral, intra-abdominal injury, closed head injury, C spine fracture, T spine fracture, L spine fracture. Differential Diagnosis altered mental status. Differential diagnosis: closed head injury, contusion, fracture, laceration, sprain. Data reviewed: vital signs, nurses notes, EMS record, lab test result(s), EKG, radiologic studies, CT scan, plain films. Consideration of Admission/Observation Escalation of care including admission/observation considered. Consideration of Admission/Observation Patient was admitted/placed on observation. I considered the following discharge prescriptions or medication management in the emergency department Medications were administered in the Emergency Department. See MAR. Independent interpretation of the following test(s) in the Emergency Department EKG: See my EKG interpretation above. Test considered but Not performed: MRI: no mri brain. Historians other than the Patient: Daughter/Son: son well informed. Care significantly affected by the following chronic conditions: Hypertension, high chlesterol. Counseling: I had a detailed discussion with the patient and/or guardian regarding the historical points, exam findings, and any diagnostic results supporting the discharge/admit diagnosis, lab results, radiology results, the need for further work-up and treatment in the hospital. 07/13 11:49 Order name: Basic Metabolic Panel; Complete Time: 14: [facility] 07/13 11:49 Order name: CBC with Diff; Complete Time: 14: [facility] 07/13 11:49 Order name: LFT's; Complete Time: 14: [facility] 07/13 11:49 Order name: Magnesium; Complete Time: 14: [facility] 07/13 11:49 Order name: NT PRO-BNP; Complete Time: 14: [facility] 07/13 11:49 Order name: PT-INR; Complete Time: 14: [facility] 07/13 11:49 Order name: Troponin HS; Complete Time: 14: [facility] 07/13 11:49 Order name: Lipase; Complete Time: 14: [facility] 07/13 11:49 Order name: Urinalysis w/ reflexes [facility] 07/13 14:29 Order name: Urine Culture [facility] 07/13 14:43 Order name: CBC w/o diff ko1 07/13 11:49 Order name: XRAY Chest (1 view); Complete Time: 14: [facility] 07/13 11:59 Order name: Head C Spine Mpr Wo Con; Complete Time: 14: [facility] 07/13 12:02 Order name: Chest Abd Pelvis Wo Con; Complete Time: 14: [facility] 07/13 12:46 Order name: Femur Right XRAY aa5 07/13 14:14 Order name: Elbow Left 3 View XRAY [facility] 07/13 14:14 Order name: Elbow Right 3 View XRAY [facility] 07/13 11:49 Order name: EKG; Complete Time: 11:50 [facility] 07/13 11:49 Order name: Cardiac monitoring; Complete Time: 12:30 [facility] 07/13 11:49 Order name: EKG - Nurse/Tech; Complete Time: 12:47 [facility] 07/13 11:49 Order name: IV Saline Lock; Complete Time: 12:30 [facility] 07/13 11:49 Order name: Labs collected and sent; Complete Time: 12:30 [facility] 07/13 11:49 Order name: O2 Per Protocol; Complete Time: 12:30 [facility] 07/13 11:49 Order name: O2 Sat Monitoring; Complete Time: 12: [facility] 07/13 11:49 Order name: Dressing - Wound; Complete Time: 14:04 [facility] 07/13 11:49 Order name: Gloves, Sterile; Complete Time: 12:46 [facility] 07/13 11:49 Order name: Prolene, Sutures; Complete Time: 12: [facility] 07/13 11:49 Order name: Setup Suture Tray; Complete Time: 12:46 [facility] EC: Rate is 62 beats/min. Rhythm is regular. QRS [place] is Normal. TN interval is normal. QRS sheri interval is normal. QT interval is normal. No Q waves. T waves are Normal. No ST changes noted. Clinical impression: NSR w/ Non-specific ST/T Changes and No evidence of ischemia. Interpreted by me. Reviewed by me. Administered Medications: 12:46 Drug: Famotidine IVP 20 mg IVP once; dilute with 10 mL 0.9% NaCl; give over 2 minutes ko1 Route: IVP; Site: left forearm; 13:01 Follow up: Response: No adverse reaction jl7 12:47 Drug: Boostrix Tdap IM 0.5 ml IM once; as a single dose Route: IM; Site: right deltoid; ko1 13:20 Follow up: Response: No adverse reaction jl7 12:47 Drug: ceFAZolin IVPB 1 grams IVPB once Route: IVPB; Site: left forearm; ko1 13:20 Follow up: Response: No adverse reaction; IV Status: Completed infusion; IV Intake: jl7 100ml 12:47 Drug: NS 0.9% IV 500 ml 500 ml IV at 1 bolus once; to be given as a bolus over 30 ko1 minutes Volume: 500 ml; Route: IV; Rate: 1 bolus; Site: left forearm; 13:47 Follow up: Response: No adverse reaction; IV Status: Completed infusion; IV Intake: jl7 500ml 14:04 Drug: Lidocaine-Epinephrine Infiltration -1%: (1:100,000) 10 ml 20 ml Infiltration ko1 once; to bedside Volume: 20 ml; Route: Infiltration; 14:19 Follow up: Response: No adverse reaction jl7 14:05 Drug: NS 0.9% IV 500 ml IV at 100 ml/hr once Route: IV; Rate: 100 ml/hr; Site: left ko1 forearm; 18:30 Follow up: Response: No adverse reaction; IV Status: Completed infusion; IV Intake: ko1 500ml Disposition Summary: 07/13/24 14:26 Hospitalization Ordered Notes: Hospitalization Status: Observation sheri Provider: Laura Mitchell cha Location: Telemetry/MedSurg (observation) sheri Condition: Fair sheri Problem: new sheri Symptoms: have improved sheri Bed/Room Type: Standard sheri Room Assignment: 414(07/13/24 17:28) em1 Diagnosis - Fall (on) (from) other stairs and steps sheri - Laceration without foreign body of other part of head sheri - Weakness sheri - Contusion of right forearm sheri - Contusion of left forearm sheri Forms: - Medication Reconciliation Form sheri - SBAR form sheri - Leadership Thank You Letter sheri Signatures: Dispatcher [employer] EDMS Demetris Junior MD MD cha Martinez, Eric em1 Anne Rosas RN RN ko1 Indio Howell RN jl7 Corrections: (The following items were deleted from the chart) 11:50 11:50 BASIC METABOLIC PANEL+C.LAB.BRZ ordered. EDMS EDMS 11:50 11:50 CBC+H.LAB.BRZ ordered. EDMS EDMS 11:50 11:50 HEPATIC FUNCTION+C.LAB.BRZ ordered. EDMS EDMS 11:50 11:50 MAGNESIUM+C.LAB.BRZ ordered. EDMS EDMS 11:50 11:50 PROBNP+C.LAB.BRZ ordered. EDMS EDMS 11:50 11:50 PROTIME (+INR)+COAG.LAB.BRZ ordered. EDMS EDMS 11:50 11:50 Troponin High Sensitivity+C.LAB.BRZ ordered. EDMS EDMS 11:50 11:50 LIPASE+C.LAB.BRZ ordered. EDMS EDMS 11:50 11:50 Urinalysis+U.LAB.BRZ ordered. EDMS EDMS 11:50 11:50 Head C Spine Cap Wo Con+CT.RAD.BRZ ordered. EDMS EDMS 16:41 14:26 sheri em1 17:01 16:41 204 em1 em1 17:28 17:01 em1 em1
--- NOTE | 2024-07-13 14:27 | ER ---
Nurse's Notes [facility] Name: Brionna Tee Age: 88 yrs Sex: Female : 1935 Arrival Date: 07/13/2024 Time: 11:36 Bed 3 Private MD: Diagnosis: Fall (on) (from) other stairs and steps;Laceration without foreign body of other part of head;Weakness;Contusion of right forearm;Contusion of left forearm Presentation: 07/13 11:54 Chief complaint: EMS states: lost footing and slipped, fell about 6-7 steps on ko1 concrete, sitting up A\T\O4 , laceration to right forehead. C/O bilateral elbow pain, left hip pain, and head pain. Coronavirus screen: At this time, the client does not indicate any symptoms associated with coronavirus-19. Ebola Screen: No symptoms or risks identified at this time. Initial Sepsis Screen: Does the patient meet any 2 criteria? No. Patient's initial sepsis screen is negative. Does the patient have a suspected source of infection? No. Patient's initial sepsis screen is negative. Risk Assessment: Do you want to hurt yourself or someone else? Patient reports no desire to harm self or others. Onset of symptoms was July 13, 2024 at 10:45. Care prior to arrival: Bleeding of injury controlled. Injury dressed. IV initiated. 20 GA, in the left forearm, Glucose check: 112. Mechanism of Injury: Fall down 7 steps. 11:54 Acuity: OTILIA 3 ko1 11:54 Method Of Arrival: EMS: [facility] ko1 Triage Assessment: 11:58 General: Appears in no apparent distress. Behavior is calm, cooperative, appropriate ko1 for age. Pain: Complains of pain in left hip, bilateral elbows, head. Historical: - Allergies: 11:58 ACETAMINOPHEN; ko1 - Home Meds: 11:58 Unable to obtain [Active]; ko1 - PMHx: 11:58 Hypercholesterolemia; Hypertensive disorder; Pelvic fracture; ko1 - PSHx: 11:58 back surgery; Total abdominal hysterectomy; ko1 - Immunization history:: Adult Immunizations unknown. - Infectious Disease History:: Denies. - Social history:: Smoking status: Patient denies any tobacco usage or history of. Screenin:00 [facility] ED Fall Risk Assessment (Adult) History of falling in the last 3 months, jl7 including since admission Yes- single mechanical fall (1 pt) Confusion or Disorientation No (0 pts) Intoxicated or Sedated No (0 pts) Impaired Gait No (0 pts) Mobility Assist Device Used No (0 pt) Altered Elimination No (0 pt) Score/Fall Risk Level 0 - 2 = Low Risk Oriented to surroundings, Maintained a safe environment, Educated pt \T\ family on fall prevention, incl call for assistance when getting out of bed, Assessed \T\ reinforced patient's understanding of fall precautions, Provided non-skid footwear, Hourly rounding (assess needs \T\ fall precautionary measures) done. Abuse screen: Denies threats or abuse. Denies injuries from another. Nutritional screening: No deficits noted. Tuberculosis screening: No symptoms or risk factors identified. Assessment: 11:55 General: Appears uncomfortable, Behavior is calm, cooperative. Pain: Complains of pain aa5 in head, julieth elbows, and right thigh Pain currently is 8 out of 10 on a pain scale. Quality of pain is described as sharp, Is continuous, Noted to be resistant to movement. Neuro: Level of Consciousness is awake, alert, obeys commands, Oriented to person, place, time, situation. Cardiovascular: Heart tones S1 S2 present Rhythm is sinus rhythm. Respiratory: Airway is patent Respiratory effort is even, unlabored, Respiratory pattern is regular, symmetrical. GI: Abdomen is round non-distended, Bowel sounds present X 4 quads. Abd is soft and non tender X 4 quads. : No signs and/or symptoms were reported regarding the genitourinary system. EENT: No signs and/or symptoms were reported regarding the EENT system. Derm: Skin is dry, Skin is pale, Skin temperature is warm Bruising and possible hematoma noted to right thigh. Wound dressing noted to head, bleeding controlled. Musculoskeletal: Range of motion: intact in all extremities. 12:40 Neuro: Level of Consciousness is awake, alert, obeys commands, Oriented to person, aa5 place, time, situation. Respiratory: Airway is patent Respiratory effort is even, unlabored, Respiratory pattern is regular, symmetrical. Derm: Skin is dry, Skin is pale, Skin temperature is warm. 13:30 Neuro: Level of Consciousness is awake, alert, obeys commands, Oriented to person, aa5 place, time, situation. Respiratory: Airway is patent Respiratory effort is even, unlabored, Respiratory pattern is regular, symmetrical. Derm: Skin is dry, Skin is pale, Skin temperature is warm. 13:30 Reassessment: MD at bedside with Anne Rosas RN completing laceration repair. . aa5 Vital Signs: 11:54 BP 172 / 77; Pulse 64; Resp 18 S; Temp 97.3(O); Pulse Ox 97% on R/A; aa5 12:40 BP 171 / 75; Pulse 64; Resp 18 S; Pulse Ox 97% on R/A; aa5 13:30 BP 185 / 80; Pulse 64; Resp 15; Pulse Ox 99% ; jl7 14:15 BP 166 / 62; Pulse 65; Resp 15; Pulse Ox 98% ; jl7 15:00 BP 192 / 87; Pulse 69; Resp 15; Pulse Ox 96% ; jl7 16:30 BP 165 / 75; Pulse 77; Resp 15; Pulse Ox 100% on R/A; ko1 [place] Coma Score: 14:19 Eye Response: spontaneous(4). Motor Response: obeys commands(6). Verbal Response: sheri oriented(5). Total: 15. ED Course: 11:44 Patient arrived in ED. em1 11:46 Demetris Junior MD is Attending Physician. sheri 11:58 Triage completed. ko1 11:58 Arm band placed on right wrist. Patient placed in an exam room, on a stretcher, on ko1 water manager, on pulse oximetry, Patient notified of wait time. 12:00 Patient has correct armband on for positive identification. Allergy band placed. Bed in jl7 low position. Call light in reach. Side rails up X2. Provided Education on: meds. Client placed on continuous cardiac and pulse oximetry monitoring. NIBP monitoring applied. manager surgical on. Door closed. Noise minimized. Lights dimmed. Warm blanket given. Pillow given. Ice pack to injury. 12:07 Head C Spine Mpr Wo Con In Process Unspecified. EDMS 12:07 Chest Abd Pelvis Wo Con In Process Unspecified. EDMS 12:11 Anne Rosas, RN is Primary Nurse. ko1 12:35 Maintain EMS IV. Dressing intact. Good blood return noted. Site clean \T\ dry. Gauge \T\ aa 5 site: 20 G to L FA . 12:35 Initial lab(s) drawn, by me, sent to lab. aa5 12:40 EKG done, by ED staff, reviewed by Demetris Junior MD. aa5 12:48 XRAY Chest (1 view) In Process Unspecified. EDMS 13:30 Assist provider with laceration repair on forehead using sutures. Set up tray. jl7 Performed by Demetris Junior MD Dressed with 4X4s, Kerlix, Patient tolerated well. 14:00 Assisted with bedpan. Repositioned patient. Linen changed. ko1 14:24 Laura Mitchell MD is Hospitalizing Provider. sheri 14:40 Elbow Left 3 View XRAY In Process Unspecified. EDMS 14:40 Elbow Right 3 View XRAY In Process Unspecified. EDMS 14:41 Femur Right XRAY In Process Unspecified. EDMS 15:00 Assisted with bedpan. Repositioned patient. ko1 15:05 Patient admitted, IV remains in place. jl7 15:06 Urine Culture Sent. jl7 15:06 CBC w/o diff Sent. jl7 16:30 Patient requests rest room assistance. ko1 16:30 Assisted with bedpan. Cleaned of incontinence. Linen changed. ko1 Administered Medications: 12:46 Drug: Famotidine IVP 20 mg IVP once; dilute with 10 mL 0.9% NaCl; give over 2 minutes ko1 Route: IVP; Site: left forearm; 13:01 Follow up: Response: No adverse reaction jl7 12:47 Drug: Boostrix Tdap IM 0.5 ml IM once; as a single dose Route: IM; Site: right deltoid; ko1 13:20 Follow up: Response: No adverse reaction jl7 12:47 Drug: ceFAZolin IVPB 1 grams IVPB once Route: IVPB; Site: left forearm; ko1 13:20 Follow up: Response: No adverse reaction; IV Status: Completed infusion; IV Intake: jl7 100ml 12:47 Drug: NS 0.9% IV 500 ml 500 ml IV at 1 bolus once; to be given as a bolus over 30 ko1 minutes Volume: 500 ml; Route: IV; Rate: 1 bolus; Site: left forearm; 13:47 Follow up: Response: No adverse reaction; IV Status: Completed infusion; IV Intake: jl7 500ml 14:04 Drug: Lidocaine-Epinephrine Infiltration -1%: (1:100,000) 10 ml 20 ml Infiltration ko1 once; to bedside Volume: 20 ml; Route: Infiltration; 14:19 Follow up: Response: No adverse reaction jl7 14:05 Drug: NS 0.9% IV 500 ml IV at 100 ml/hr once Route: IV; Rate: 100 ml/hr; Site: left ko1 forearm; 18:30 Follow up: Response: No adverse reaction; IV Status: Completed infusion; IV Intake: ko1 500ml Medication: 15:00 Vaccine Information Statement (VIS) provided today. Questions and/or concerns jl7 addressed. VIS edition date: 2016. Intake: 13:20 IV: 100ml; Total: 100ml. jl7 13:47 IV: 500ml; Total: 600ml. jl7 18:30 IV: 500ml; Total: 1100ml. ko1 Outcome: 14:26 Decision to Hospitalize by Provider. [facility] 18:41 Admitted to Tele accompanied by tech, via stretcher, room 414, with chart, ss 18:41 Patient left the ED. ss Signatures: Dispatcher [employer] EDDemetris Heredia MD MD cha Martinez, Eric em1 Radha Redman, RN RN aa5 Elly Bob RN RN ss Indio Howell RN RN jl7 Anne Rosas RN RN ko1
--- NOTE | 2024-07-13 14:49 | RAD REPORT ---
EXAMINATION: Elbow Left 3 View CLINICAL INDICATION: Female, 88 years old. PAIN COMPARISON: No prior exam. VIEWS: Three views FINDINGS: No acute fracture. No malalignment/dislocation. No significant focal degenerative change. Other: n/a IMPRESSION: No acute osseous abnormality.
--- NOTE | 2024-07-13 14:52 | RAD REPORT ---
EXAMINATION: Elbow Right 3 View CLINICAL INDICATION: Female, 88 years old. PAIN RIGHT COMPARISON: No prior exam. FINDINGS: No acute fracture. No malalignment/dislocation. At least moderate degenerative changes are present at the radial head and olecranon. Healed mid ulnar fracture. Other: Innumerable foreign bodies present, presumably shrapnel. IMPRESSION: No acute osseous abnormality. Degenerative changes.
--- NOTE | 2024-07-13 15:00 | RAD REPORT ---
EXAMINATION: Femur Right CLINICAL INDICATION: Female, 88 years old. PAIN RIGHT COMPARISON: No prior exam. VIEWS: Four views FINDINGS: No acute fracture. No malalignment/dislocation. Mild right acetabular degenerative changes. Other: n/a IMPRESSION: No acute osseous abnormality.
[2024-07-13 15:11] LABS: Hematocrit 29.2 % (36.0-45.0); Hemoglobin 9.7 g/dL (12.0-15.0); MCH 26.7 pg (27.0-35.0); MCHC 33.2 g/dL (32.0-36.0); MCV 80.4 fL (80-100); MPV 7.4 fL (7.6-11.3); Platelets 306 thou/uL (152-406); RBC Red Blood Cell Count 3.62 M/uL (3.86-4.86)
[2024-07-13] MEDS ORDERED: Oxycodone HCl/Acetaminophen 5/325 MG TAB PO PRN (19:32)
[2024-07-13] MEDS: MORPHINE 2 MG/ML SYR IV PRN (19:48)
[2024-07-13] MEDS: ONDANSETRON 4 MG/2 ML VIAL IV PRN (19:49)
[2024-07-13 19:56] VITALS: BMI 21.9
--- NOTE | 2024-07-14 10:17 | P.HP ---
Certification for Inpatient Patient admitted to: Observation With expected LOS: <2 Midnights Patient will require the following post-hospital care: Home Health Services Practitioner: I am a practitioner with admitting privileges, knowledge of patient current condition, hospital course, and medical plan of care. Services: Services provided to patient in accordance with Admission requirements found in Title 42 Section 412.3 of the Code of Federal Regulations Patient History Date of Service: 07/13/24 Reason for admission: Status post fall History of Present Illness: Patient is an 88-year-old female came to the hospital with scalp laceration. Patient had fallen and suffered an injury to the scalp. This was sutured. She was weak and decision was made to admit her to the hospital for observation. Otherwise, patient with no other complaints. Patient denies any other clinical symptoms. Patient has been dealing with a injured shoulder/clavicular cold for a long time. Patient will be admitted for observation. Allergies acetaminophen Allergy (Verified 07/13/24 21:46) Itching/Hives/Rash Home Medications: Citalopram [Celexa*] 10 mg PO DAILY 02/13/23 Fenofibrate [Tricor*] 160 mg PO DAILY 02/13/23 Oxycodone HCl [Oxyir (Oxycodone HCl Imr)*] 10 mg PO Q6H PRN 02/13/23 Pregabalin [Lyrica] 100 mg PO DAILY 02/13/23 Propranolol [Inderal*] 10 mg PO TID 02/13/23 Furosemide [Lasix*] 20 mg PO DAILY PRN #30 tab 02/14/23 Magnesium Oxide [Mag 0X*] 400 mg PO DAILY #30 tab 02/14/23 Pregabalin [Lyrica*] 200 mg PO BEDTIME cap 02/14/23 Senosides [Senokot*] 2 tab PO DAILY #30 tab 02/14/23 levoFLOXacin [Levaquin*] 500 mg PO DAILY #5 tab 02/14/23 lisinopriL [Prinivil*] 40 mg PO DAILY #60 tab 02/14/23 - Past Medical/Surgical History Diabetic: No -: Hypertension -: Hyperlipidemia -: GERD -: Chronic pain on [place] -: Fall with pelvic fracture -: Spinal instrumentation -: total abdominal hysterectomy -: R arm REconstructive SX -: Hysterectomy - Family History Father Medical History: Lung disease, Other (see notes) Notes: TB Mother Medical History: Heart disease - Social History Smoking Status: Former smoker Alcohol use: No CD- Drugs: No Caffeine use: No Place of Residence: Home Review of Systems 10-point ROS is otherwise unremarkable Physical Examination - Vital Signs Temperature: 97.9 F Blood Pressure: 157/73 Pulse: 76 Respirations: 16 Pulse Ox (%): 90 - Physical Exam General: Alert, In no apparent distress, Oriented x3 HEENT: Atraumatic, PERRLA, Mucous membr. moist/pink, EOMI, Sclerae nonicteric Neck: Supple, 2+ carotid pulse no bruit, No LAD, Without JVD or thyroid abnormality Respiratory: Clear to auscultation bilaterally, Normal air movement Cardiovascular: Regular rate/rhythm, Normal S1 S2, No murmurs Gastrointestinal: Normal bowel sounds, Soft and benign, Non-distended, No tenderness Musculoskeletal: Tenderness Integumentary: No rashes Neurological: Normal speech, Normal tone, Sensation intact, Cranial nerves 3-12 intact, Abnormal gait, Abnormal speech Lymphatics: No axilla or inguinal lymphadenopathy - Studies Laboratory Data (last 24 hrs) 07/13/24 07/13/24 07/13/24 14:50 12:29 12:29 WBC 12.20 H 5.50 Hgb 9.7 L 9.9 L Hct 29.2 L 29.4 L Plt Count 306 276 PT 11.3 INR 1.08 Sodium Potassium BUN Creatinine Glucose Magnesium Total Bilirubin AST ALT Alkaline Phosphatase Lipase 07/13/24 12:29 WBC Hgb Hct Plt Count PT INR Sodium 129 L Potassium 4.1 BUN 16 Creatinine 0.84 Glucose 104 Magnesium 1.7 Total Bilirubin 0.3 AST 26 ALT 17 Alkaline Phosphatase 72 Lipase 44 Assessment & Plan - Plan Assessment/plan: 1. Status post fall with scalp laceration; continue with pain control. Out of bed and ambulate. Orthostatics prior to discharge. 2. History of hypertension; resume antihypertensives 3. Hyperlipidemia; continue with statin therapy 4. Chronic pain syndrome; continue with pain control Discharge Plan: Home Plan to discharge in: 24 Hours - Advance Directives Does patient have a Living Will: No Does patient have a Durable POA for Healthcare: Yes - Code Status/Comfort Care Code Status Assessed: Yes Code Status: Full Code Critical Care: No Time Spent Managing PTS Care (In Minutes): 45
--- NOTE | 2024-07-14 10:27 | P.HP ---
Patient History Allergies acetaminophen Allergy (Verified 07/13/24 21:46) Itching/Hives/Rash Home Medications: Citalopram [Celexa*] 10 mg PO DAILY 02/13/23 Fenofibrate [Tricor*] 160 mg PO DAILY 02/13/23 Oxycodone HCl [Oxyir (Oxycodone HCl Imr)*] 10 mg PO Q6H PRN 02/13/23 Pregabalin [Lyrica] 100 mg PO DAILY 02/13/23 Propranolol [Inderal*] 10 mg PO TID 02/13/23 Furosemide [Lasix*] 20 mg PO DAILY PRN #30 tab 02/14/23 Magnesium Oxide [Mag 0X*] 400 mg PO DAILY #30 tab 02/14/23 Pregabalin [Lyrica*] 200 mg PO BEDTIME cap 02/14/23 Senosides [Senokot*] 2 tab PO DAILY #30 tab 02/14/23 levoFLOXacin [Levaquin*] 500 mg PO DAILY #5 tab 02/14/23 lisinopriL [Prinivil*] 40 mg PO DAILY #60 tab 02/14/23 - Past Medical/Surgical History Diabetic: No -: Hypertension -: Hyperlipidemia -: GERD -: Chronic pain on [place] -: Fall with pelvic fracture -: Spinal instrumentation -: total abdominal hysterectomy -: R arm REconstructive SX -: Hysterectomy - Family History Father Medical History: Lung disease, Other (see notes) Notes: TB Mother Medical History: Heart disease - Social History Smoking Status: Former smoker Alcohol use: No CD- Drugs: No Caffeine use: No Place of Residence: Home Physical Examination - Vital Signs Temperature: 97.9 F Blood Pressure: 157/73 Pulse: 76 Respirations: 16 Pulse Ox (%): 90 - Studies Laboratory Data (last 24 hrs) 07/13/24 07/13/24 07/13/24 14:50 12:29 12:29 WBC 12.20 H 5.50 Hgb 9.7 L 9.9 L Hct 29.2 L 29.4 L Plt Count 306 276 PT 11.3 INR 1.08 Sodium Potassium BUN Creatinine Glucose Magnesium Total Bilirubin AST ALT Alkaline Phosphatase Lipase 07/13/24 12:29 WBC Hgb Hct Plt Count PT INR Sodium 129 L Potassium 4.1 BUN 16 Creatinine 0.84 Glucose 104 Magnesium 1.7 Total Bilirubin 0.3 AST 26 ALT 17 Alkaline Phosphatase 72 Lipase 44 Assessment & Plan - Advance Directives Does patient have a Living Will: No Does patient have a Durable POA for Healthcare: Yes
[2024-07-14] MEDS: METHYLPREDNISOLONE 40 MG INJ IV ONE (10:36)
[2024-07-14] MEDS ORDERED: PNEUMOCOCCAL VACCINE 0.5 ML IMVAC ONE (12:00)
[2024-07-14] MEDS: OXYCODONE HCL 5 MG TAB PO PRN (16:55)
[2024-07-14] MEDS: PANTOPRAZOLE 40MG TABLET PO SCH (17:00)
[2024-07-14] MEDS: PREGABALIN 50 MG CAP PO SCH (20:25)
[2024-07-14] MEDS: CITALOPRAM 10 MG TABLET PO SCH (20:26)
[2024-07-14] MEDS: MONTELUKAST 10 MG TAB PO SCH (20:26)
[2024-07-14] MEDS: PROPRANOLOL HCL 10 MG TAB PO SCH (21:00)
[2024-07-15] MEDS: LABETALOL 20 MG/4ML SYRINGE IV ONE (05:02)
[2024-07-15] MEDS ORDERED: HYDRALAZINE HCL 20 MG/ML VIAL IV PRN (05:43)
[2024-07-15 07:21] VITALS: O2SAT 92
[2024-07-15] MEDS: PROPRANOLOL HCL 10 MG TAB PO SCH (08:35)
[2024-07-15] MEDS: PREGABALIN 50 MG CAP PO SCH (08:35)
[2024-07-15] MEDS: FENOFIBRATE 160 MG TAB PO SCH (08:35)
[2024-07-15 08:36] VITALS: TEMP 98.1
[2024-07-15] MEDS ORDERED: PNEUMOCOCCAL VACCINE 0.5 ML IMVAC ONE (12:00)
[2024-07-15 12:35] VITALS: BP 136/59
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
--- NOTE | 2024-07-15 16:28 | P.DS ---
Discharge Date: 07/15/24 Disposition: DC HOME/HOME HEALTH CARE Discharge Condition: GOOD Reason for Admission: Status post fall - Problems (1) Status post fall Status: Acute (2) Scalp laceration Status: Acute (3) Pain in clavicular joint Status: Acute Brief History of Present Illness: Patient is an 88-year-old female came to the hospital with scalp laceration. Patient had fallen and suffered an injury to the scalp. This was sutured. She was weak and decision was made to admit her to the hospital for observation. Otherwise, patient with no other complaints. Patient denies any other clinical symptoms. Patient has been dealing with a injured shoulder/clavicular cold for a long time. Patient will be admitted for observation. Hospital Course: Patient better. Family contemplating prison but patient was adamant about going home with home health. Her son was agreeable. Patient will be discharged home with home health. Sutures need to be removed in 1 week. Vital Signs/Physical Exam: Temp Pulse Resp BP Pulse Ox 98.1 F 69 17 136/59 L 92 07/15/24 16:26 07/15/24 16:26 07/15/24 16:26 07/15/24 16:26 07/15/24 16:26 General: Alert, In no apparent distress, Oriented x3 Laboratory Data at Discharge: WBC 12.20 thou/uL (4.3-10.9) H 07/13/24 14:50 Hgb 9.7 g/dL (12.0-15.0) L 07/13/24 14:50 Hct 29.2 % (36.0-45.0) L 07/13/24 14:50 Plt Count 306 thou/uL (152-406) 07/13/24 14:50 PT 11.3 SECONDS (9.7-12.7) 07/13/24 12:29 INR 1.08 07/13/24 12:29 Sodium 129 mEq/L (136-145) L 07/13/24 12:29 Potassium 4.1 mEq/L (3.5-5.1) 07/13/24 12:29 BUN 16 mg/dL (7-18) 07/13/24 12:29 Creatinine 0.84 mg/dL (0.55-1.02) 07/13/24 12:29 Glucose 104 mg/dL (74-106) 07/13/24 12:29 Magnesium 1.7 mg/dL (1.6-2.4) 07/13/24 12:29 Total Bilirubin 0.3 mg/dL (0.2-1.0) 07/13/24 12:29 AST 26 U/L (15-37) 07/13/24 12:29 ALT 17 U/L (13-56) 07/13/24 12:29 Alkaline Phosphatase 72 U/L (45-117) 07/13/24 12:29 Lipase 44 U/L (13-75) 07/13/24 12:29 Home Medications: Citalopram [Celexa*] 20 mg PO BEDTIME 02/13/23 Fenofibrate [Tricor*] 160 mg PO DAILY 02/13/23 Oxycodone HCl [Oxyir (Oxycodone HCl Imr)*] 10 mg PO Q6H PRN 02/13/23 Pregabalin [Lyrica] 100 mg PO DAILY 02/13/23 Pregabalin [Lyrica*] 200 mg PO BEDTIME cap 02/14/23 Fluticasone Propionate 2 spray IH DAILY 07/14/24 Montelukast Sodium [Singulair] 10 mg PO BEDTIME 07/14/24 Omeprazole [Prilosec] 40 mg PO BID 07/14/24 Furosemide 20 mg PO MO,FR PRN #10 tab 07/15/24 Propranolol [Inderal*] 10 mg PO TID #0 tab 07/15/24 New Medications: Furosemide 20 mg PO MO,FR PRN #10 tab PRN Reason: edema/swelling Physician Discharge Instructions: -DC IV and DC home with home health -Please give patient's family information regarding private pay aide -Follow-up with PCP in 1 to 2 weeks -Please call Dr. Mitchell at [phone] if any questions regarding hospital stay -Please call nursing station at [phone] if any nursing or medication questions -Return to the emergency room if symptoms worsen Diet: Regular Activity: Fall precautions Followup: Esteban Stevenson DO [Primary Care Provider] - 1-2 Weeks (Call for appointment.) Time spent managing pt's care (in minutes): 35
--- NOTE | 2024-07-16 12:10 | EKG ---
Test Date: 2024-07-13 Test Time: 12:41:45 Consumer Relations Complaint Clerk: WENDY MEASUREMENT RESULTS: Intervals: Rate: 62 LA: 174 QRSD: 84 QT: 432 QTc: 438 [place]: P: 56 LA: 174 QRS: 19 T: 43 INTERPRETIVE STATEMENTS: Normal sinus rhythm Normal ECG Compared to ECG 03/21/2024 07:10:46 Sinus bradycardia no longer present Myocardial infarct finding no longer present Electronically Signed On 07-16-24 12:10:08 AMMONIA OPERATOR by Sean Mancilla
== END 2024-07-15 13:10 | disposition home health service (06) | DRG 581 ==
LOC: ER 11:36 → ERHOLD 16:03 → 4TH 18:35 → OBSVTOIN 07-14 18:21
PROVIDERS: ADMIT Hospitalist; ATTEND Hospitalist
PROC: 0JQ10ZZ Repair Face Subcutaneous Tissue and Fascia, Open Approach (ICD-10-PCS; principal; 2024-07-14)
DX: S01.81XA Laceration without foreign body of other part of head, initial encounter (principal); E78.00 Pure hypercholesterolemia, unspecified; I10 Essential (primary) hypertension; G89.4 Chronic pain syndrome; S50.11XA Contusion of right forearm, initial encounter; S50.12XA Contusion of left forearm, initial encounter; K21.9 Gastro-esophageal reflux disease without esophagitis; Z60.2 Problems related to living alone; Z79.899 Other long term (current) drug therapy; Z87.891 Personal history of nicotine dependence; Z90.710 Acquired absence of both cervix and uterus; W10.9XXA Fall (on) (from) unspecified stairs and steps, initial encounter; Y93.9 Activity, unspecified; Y92.9 Unspecified place or not applicable; Y99.9 Unspecified external cause status
CPT/HCPCS: 13131; 36415; 70450; 71045; 71250; 72125; 74176; 80048; 80076; 81001; 83690; 83735; 83880; 84484; 85025; 85027; 85610; 87086; 87088; 93005; 96361; 96365; 96372; 96375; 99285; G0378; J0690; J1171; J2003; J2270; J2405; J2919; J7040

== ENCOUNTER 2024-08-31 13:53 | Emergency (ER) | payer MEDICAID ==
--- NOTE | 2024-08-31 14:46 | RAD REPORT ---
EXAM: CT brain without contrast HISTORY: pain sp fall COMPARISON: 07/13/2024 TECHNIQUE: Multiple contiguous axial images were obtained and a CT of the brain without contrast. Sag ittal and coronal reformats were performed. One or more of the following dose reduction techniques were used: Automated exposure control, adjust ment of the mA and/or kV according to patient size, and/or iterative reconstruction. FINDINGS: Subdural fluid collection along the right convexity is present intermediate density measuring 11 mm i n maximum thickness. This finding is increased since the comparative CT head dated 07/13/2024 there is subtle areas of increased density within the collection. Subtle right to left midline shift of 2-3 mm. The calvarium is intact. The visualized paranasal sinuses and mastoid air cells are essentially clear . 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 There is slight [id number] midline shift. EXAM: CT of the cervical spine without contrast HISTORY: Neck pain, injury pain sp fall TECHNIQUE: Multiple contiguous axial images were obtained in a CT of the cervical spine without contr ast. Sagittal and coronal reformats were performed. FINDINGS: The vertebral bodies demonstrate normal height and alignment. No evidence of acute fracture or subluxation.. Multilevel degenerative change mid and lower cervical spine is present. No prevertebral soft tissue swelling is seen. The posterior facets are well aligned. Normal alignment of the skull base with the cervical spine is seen. Enlargement of the thyroid gland with nodularity seen. The lung apices are unremarkable. IMPRESSION: No evidence of acute osseous abnormality of the cervical spine.
--- NOTE | 2024-08-31 14:59 | RAD REPORT ---
EXAMINATION: XR RIGHT SHOUDLER CLINICAL INDICATION: Female, 88 years old. pain sp fall RIGHT TECHNIQUE: Multiple views of the right shoulder were obtained. COMPARISON: No prior exam. FINDINGS: There is advanced osteopenia noted, limiting bone detail. Significantly high riding humeral head likely indicates underlying rotator cuff tear. Mild widening of the AC joint also likely chronic. No discrete acute fracture or dislocation evident, within the limitations of osteopenia.
--- NOTE | 2024-08-31 15:01 | RAD REPORT ---
EXAMINATION: LUMBAR SPINE MULTIPLE VIEWS CLINICAL INDICATION: Female, 88 years old. pain sp fall TECHNIQUE: Multiple views of the lumbar spine were obtained. COMPARISON: 10/30/2022 FINDINGS: For purposes of this dictation, it is assumed that there are 5 lumbar type vertebral bodies. ALIGNMENT: Mild to moderate levoscoliosis of the lumbar spine. BONES: Prominent diffuse osteopenia is evident. Posterior lumbar fusion hardware is in place spanning L3-5. Hardware assessment is somewhat limited due to the high degree of osteopenia. DISCS: Multilevel disc thinning is present, mild. IMPRESSION: Examination is quite limited by high degree of osteopenia. Postsurgical hardware is in place similar to comparison study. No gross acute process evident.
--- NOTE | 2024-08-31 15:02 | RAD REPORT ---
EXAMINATION: THORACIC SPINE 3 VIEWS CLINICAL INDICATION: Female, 88 years old. pain sp fall TECHNIQUE: AP, lateral views of the thoracic spine were obtained. COMPARISON: No prior exam. FINDINGS: ALIGNMENT: The thoracic spine has normal alignment. BONES: Mild wedging of anterior aspect of the superior thoracic vertebral body seen, favored to be ch ronic. The bones are quite demineralized, limiting assessment. DISCS: Diffuse disc thinning is present throughout the thoracic spine. SOFT TISSUE: No soft tissue abnormalities. IMPRESSION: Within the limitations of osteopenia, no acute process definitively seen. Mild wedging of a superior thoracic vertebral body with kyphosis favored to be chronic. Persistent u pper back pain may be further assessed via nonemergent MRI imaging if clinically indicated.
--- NOTE | 2024-08-31 15:17 | EDPHYS ---
Physician Documentation [facility] Name: Brionna Tee Age: 88 yrs Sex: Female : 1935 Arrival Date: 08/31/2024 Time: 13:53 Bed 5 Private MD: ED Physician Samy Vieyra HPI: 08/31 14:19 Chief Complaint: Lower back pain following a fall in the bathtub. History of Present jr11 Illness: The patient is a [id number] who fell in her bathtub at home, resulting in a mechanical fall. She is currently in a cervical collar due to concerns about a neck injury, although she reports no neck pain presently. Her primary complaint is pain in the lower back, where there is noted fusion, and she has a posterior hematoma measuring approximately three by three centimeters. She does not take blood thinners and did not experience loss of consciousness. She also reports frequent falls. Additionally, she has a new onset of right shoulder pain, which is more severe than the mild discomfort in her left shoulder. She reports a fierce headache but cannot take Tylenol due to an allergy that causes lightheadedness. She typically manages headaches with ibuprofen, though it's noted that NSAIDs are currently contraindicated pending further evaluation. The patient denies any pain in other areas such as the ankles, knees, hips, wrists, elbows, ribs, and abdomen. Review of Systems: - Positive for lower back pain and headache. - Positive for new right shoulder pain. - Reports not having neck pain, rib pain, or abdominal pain. - ROS otherwise negative. . Historical: - Allergies: 14:06 ACETAMINOPHEN; ld1 - PMHx: 14:06 Hypercholesterolemia; Hypertensive disorder; Pelvic fracture; ld1 - PSHx: 14:06 back surgery; Total abdominal hysterectomy; ld1 - Immunization history:: Adult Immunizations up to date. - Infectious Disease History:: Denies. - Social history:: Smoking status: Patient denies any tobacco usage or history of. Exam: 14:19 Constitutional: This is a well developed, well nourished patient who is awake, alert, jr11 and in no acute distress. Head/Face: posterior scalp hematoma 3x4cm ENT: Nares patent. No nasal discharge, no septal abnormalities noted. Oropharynx with no redness, swelling, or masses, exudates, or evidence of obstruction, uvula midline. Mucous membranes moist. Neck: Trachea midline, no thyromegaly or masses palpated, and no cervical lymphadenopathy. Supple, full range of motion without nuchal rigidity, or vertebral point tenderness. No Meningismus. Chest/axilla: Normal chest wall appearance and motion. Nontender with no deformity. No lesions are appreciated. Cardiovascular: Regular rate and rhythm with a normal S1 and S2. No gallops, murmurs, or rubs. Normal PMI, no JVD. No pulse deficits. Respiratory: Lungs have equal breath sounds bilaterally, clear to auscultation and percussion. No rales, rhonchi or wheezes noted. No increased work of breathing, no retractions or nasal flaring. Abdomen/GI: Soft, non-tender, with normal bowel sounds. No distension or tympany. No guarding or rebound. No evidence of tenderness throughout. Back: No spinal tenderness. No costovertebral tenderness. Full range of motion. MS/ Extremity: Pulses equal, no cyanosis. Neurovascular intact. Full, normal range of motion. Except tenderness to palpation T-spine and L-spine, no step-offs. Neuro: Awake and alert, GCS 15, oriented to person, place, time, and situation. No gross motor or sensory deficits. Vital Signs: 14:04 BP 170 / 126; Pulse 61; Resp 18; Temp 97.8(TE); Pulse Ox 96% on R/A; Weight 61.23 kg; ld1 Height 5 ft. 5 in. ; Pain 2/10; 15:31 BP 174 / 77; Pulse 65; Pulse Ox 96% on R/A; ap3 16:14 BP 168 / 71; Pulse 66; Resp 18; Pulse Ox 96% on R/A; ld1 14:04 Body Mass Index 22.46 (61.23 kg, 165.1 cm) ld1 14:04 Pain Scale: Adult ld1 MDM: 14:04 Medical Screening Exam initiated jr11 14:19 Differential diagnosis: Medical Decision Makin. Differential Diagnosis: - Lumbar jr11 strain or contusion - Right shoulder sprain or injury - Concussion or post-traumatic headache - Occult fracture or internal injury Plan: - Conduct CT scans of the head, neck, and right shoulder to assess for any fractures or internal injuries. - Delay administration of ibuprofen until CT results are reviewed to rule out any contraindications. - Consider administering Reglan for headache management if the CT is clear. - Continue monitoring and supportive care. . 15:15 Data reviewed: vital signs, nurses notes. 15:39 ED course: accepted to ER. 08/31 14:05 Order name: CT Head C Spine; Complete Time: 15:05 08/31 14:05 Order name: XRAY Thoracic Spine (Ap/lat); Complete Time: 15:05 08/31 14:05 Order name: XRAY Lumbar Spine (3 Views); Complete Time: 15:05 08/31 14:05 Order name: XRAY Shoulder RIGHT 2 view; Complete Time: 15:05 Administered Medications: 16:09 Drug: Keppra IV 1000 mg IV at calculated rate once Route: IV; Rate: calculated rate; ld1 Site: left antecubital; 16:14 Follow up: Response: No adverse reaction; IV Status: Completed infusion; IV Intake: ld1 100ml 16:14 Drug: niCARdipine IV 5 mg/hr IV at calculated rate See Administration Instructions; ld1 (Standard concentration 25 mg / 250 mL NS); Recommended max rate 15 mg/hr; Titrate 2.5 mg/hr as often as every 15 minutes to achieve goal (see titration policy); Goal parameter SBP less than 160 mmHg Route: IV; Rate: calculated rate; Site: left antecubital; Disposition Summary: 08/31/24 15:16 Transfer Ordered Notes: Transfer Location: Other Acute Care Facility jr11 Reason: Higher level of care jr11 Condition: Stable jr11 Problem: new jr11 Symptoms: are unchanged jr11 Accepting Physician: Trauma(08/31/24 16:39) ld1 Diagnosis - Traumatic subdural hemorrhage jr11 Forms: - Medication Reconciliation Form jr11 - SBAR form jr11 Critical care time excluding procedures: 15:39 Critical care time: Bedside Care: 6 minutes, Consultation: 12 minutes, Family jr11 Intervention: 13 minutes. Total time: 31 minutes Signatures: Dispatcher [employer] EDRoula Gamez RN RN ld1 Samy Vieyra MD MD jr11 Corrections: (The following items were deleted from the chart) 14:05 14:05 Head C Spine MPR Wo Con+CT.RAD.BRZ ordered. EDMS EDMS 14:05 14:05 Spine Thoracic Ap/Lat+RAD.RAD.BRZ ordered. EDMS EDMS 14:05 14:05 Lumbar Spine 3 Views+RAD.RAD.BRZ ordered. EDMS EDMS 14:06 14:05 Shoulder Right 2 View+RAD.RAD.BRZ ordered. EDMS EDMS 16:39 15:16 Trauma jr11 ld1
--- NOTE | 2024-08-31 15:17 | ER ---
Nurse's Notes [facility] Name: Brionna Tee Age: 88 yrs Sex: Female : 1935 Arrival Date: 08/31/2024 Time: 13:53 Bed 5 Private MD: Diagnosis: Traumatic subdural hemorrhage Presentation: 08/31 14:04 Chief complaint: EMS states: toned out to patient home for fall in bathtub. Pt reports ld1 falling and hitting neck, head. C/O headache, low back pain, right shoulder pain. Denies LOC. Not on blood thinners. Coronavirus screen: At this time, the client does not indicate any symptoms associated with coronavirus-19. Ebola Screen: No symptoms or risks identified at this time. Initial Sepsis Screen: Does the patient meet any 2 criteria? No. Patient's initial sepsis screen is negative. Does the patient have a suspected source of infection? No. Patient's initial sepsis screen is negative. Risk Assessment: Do you want to hurt yourself or someone else? Patient reports no desire to harm self or others. Onset of symptoms was August 31, 2024. 14:04 Method Of Arrival: EMS: [facility] ld1 14:04 Acuity: OTILIA 2 ld1 Triage Assessment: 14:06 General: Appears in no apparent distress. comfortable, Behavior is calm, cooperative, ld1 appropriate for age. Pain: Complains of pain in scalp, lumbar area, sacrum, left low back, right low back and posterior aspect of right shoulder Pain does not radiate. Pain currently is 2 out of 10 on a pain scale. Quality of pain is described as throbbing, Pain began 1 hour ago. Is continuous. EENT: No signs and/or symptoms were reported regarding the EENT system. Neuro: Level of Consciousness is awake, alert, obeys commands, Oriented to person, place, time, situation. Cardiovascular: Capillary refill < 3 seconds Patient's skin is warm and dry. Rhythm is sinus rhythm. Respiratory: Airway is patent Respiratory effort is even, unlabored. GI: Abdomen is flat, non-distended. : No signs and/or symptoms were reported regarding the genitourinary system. Derm: No signs and/or symptoms reported regarding the dermatologic system. Musculoskeletal: No signs and/or symptoms reported regarding the musculoskeletal system. Historical: - Allergies: 14:06 ACETAMINOPHEN; ld1 - PMHx: 14:06 Hypercholesterolemia; Hypertensive disorder; Pelvic fracture; ld1 - PSHx: 14:06 back surgery; Total abdominal hysterectomy; ld1 - Immunization history:: Adult Immunizations up to date. - Infectious Disease History:: Denies. - Social history:: Smoking status: Patient denies any tobacco usage or history of. Screenin:07 [facility] [place] ED Fall Risk Assessment (Adult) History of falling in the last 3 months, ld1 including since admission Yes- single mechanical fall (1 pt) Confusion or Disorientation No (0 pts) Intoxicated or Sedated No (0 pts) Impaired Gait No (0 pts) Mobility Assist Device Used No (0 pt) Altered Elimination No (0 pt) Score/Fall Risk Level 0 - 2 = Low Risk Oriented to surroundings, Hourly rounding (assess needs \T\ fall precautionary measures) done. Abuse screen: Denies threats or abuse. Denies injuries from another. Nutritional screening: No deficits noted. Tuberculosis screening: No symptoms or risk factors identified. Assessment: 14:07 Reassessment: See triage assessment. ERP at bedside assessing patient. ld1 14:07 Reassessment: Pt cleaned of incontinence and placed on purewick. ld1 15:45 General: attempted to call report, no answer. ap3 Vital Signs: 14:04 BP 170 / 126; Pulse 61; Resp 18; Temp 97.8(TE); Pulse Ox 96% on R/A; Weight 61.23 kg; ld1 Height 5 ft. 5 in. ; Pain 2/10; 15:31 BP 174 / 77; Pulse 65; Pulse Ox 96% on R/A; ap3 16:14 BP 168 / 71; Pulse 66; Resp 18; Pulse Ox 96% on R/A; ld1 14:04 Body Mass Index 22.46 (61.23 kg, 165.1 cm) ld1 14:04 Pain Scale: Adult ld1 ED Course: 13:57 Patient arrived in ED. aa5 13:58 Samy Vieyra MD is Attending Physician. jr11 14:04 Roula Mandel RN is Primary Nurse. ld1 14:06 Triage completed. ld1 14:06 Arm band placed on right wrist. ld1 14:07 Patient has correct armband on for positive identification. Placed in gown. Bed in low ld1 position. Call light in reach. Side rails up X2. athletic monitor on. Pulse ox on. NIBP on. Door closed. Noise minimized. Warm blanket given. 14:07 No provider procedures requiring assistance completed. Maintain EMS IV. Dressing ld1 intact. Good blood return noted. Site clean \T\ dry. Gauge \T\ site: 18G RAC. 14:31 CT Head C Spine In Process Unspecified. EDMS 14:48 XRAY Thoracic Spine (Ap/lat) In Process Unspecified. EDMS 14:48 XRAY Lumbar Spine (3 Views) In Process Unspecified. EDMS 14:48 XRAY Shoulder RIGHT 2 view In Process Unspecified. EDMS 15:27 initiated a transfer with Ro from the [facility] Transfer [place]. 15:36 connected the neuro distribution sales representative for [facility] with Dr. Vieyra for patient eb transfer consultation. 15:38 administrative approval given by Ro Felix Rn/ patient has been accepted to [facility] ER/ Dr. José Luis Morrison has accepted the patient in transfer/ report to be called to [phone]. Administered Medications: 16:09 Drug: Keppra IV 1000 mg IV at calculated rate once Route: IV; Rate: calculated rate; ld1 Site: left antecubital; 16:14 Follow up: Response: No adverse reaction; IV Status: Completed infusion; IV Intake: ld1 100ml 16:14 Drug: niCARdipine IV 5 mg/hr IV at calculated rate See Administration Instructions; ld1 (Standard concentration 25 mg / 250 mL NS); Recommended max rate 15 mg/hr; Titrate 2.5 mg/hr as often as every 15 minutes to achieve goal (see titration policy); Goal parameter SBP less than 160 mmHg Route: IV; Rate: calculated rate; Site: left antecubital; Medication: 14:07 VIS not applicable for this client. ld1 Intake: 16:14 IV: 100ml; Total: 100ml. ld1 Outcome: 15:16 ER care complete, transfer ordered by jr11 16:39 Patient left the ED. ld1 Signatures: Dispatcher [employer] EDMS Radha Redman RN RN aa5 Galina Mcdaniel RN RN ap3 Caron Melgar Lauren RN RN ld1 Samy Vieyra MD MD jr11 Corrections: (The following items were deleted from the chart) : 14:04 Acuity: OTILIA 3 ld1 ld1
[2024-08-31] MEDS ORDERED: LEVETIRACETAM 500 MG/5 ML VIAL IV ONE (16:03)
[2024-08-31] MEDS ORDERED: NA CHLORIDE 0.9% 100 ML ONE (16:03)
[2024-08-31] MEDS ORDERED: Nicardipine/NS 25 MG/250 ML KIT IV ONE (16:03)
[2024-08-31 16:48] VITALS: TEMP 97.8; O2SAT 96
[2024-08-31 16:51] VITALS: BP 168/71
== END 2024-08-31 16:39 ==
LOC: ER 13:53
DX: S06.5X0A Traumatic subdural hemorrhage without loss of consciousness, initial encounter (principal); M54.50 Low back pain, unspecified; M25.511 Pain in right shoulder; W18.2XXA Fall in (into) shower or empty bathtub, initial encounter
CPT/HCPCS: 70450; 72125; 72100; 72070; 73030; 96375; 96374; 99284; J1953

== ENCOUNTER 2024-09-07 01:03 | Emergency (ER) | payer MEDICAID ==
[2024-09-07 02:45] LABS: Absolute Basophils 0.1 K/uL (0-0.5); Absolute Lymphocytes (CBC) 0.7 K/uL (0.7-4.9); Absolute Monocytes 1.3 K/uL (0.1-1.3); Absolute Neutrophil 10.1 K/uL (1.8-8.0); Basophils % 0.6 % (0-1.3); Eosinophils % 0.3 % (0-4.4); Hematocrit 25.7 % (36.0-45.0); Hemoglobin 8.7 g/dL (12.0-15.0); Lymphocytes % 5.7 % (15.3-44.8); MCH 26.2 pg (27.0-35.0); MCHC 33.9 g/dL (32.0-36.0); MCV 77.4 fL (80-100); MPV 7.3 fL (7.6-11.3); Monocytes % 10.3 % (3.3-12.3); Neutrophils % 83.1 % (41.7-73.7); Platelets 278 thou/uL (152-406); RBC Red Blood Cell Count 3.32 M/uL (3.86-4.86); Red Cell Distribution Width 14.1 % (12.1-15.2)
[2024-09-07 02:54] LABS: Anion Gap 6.8 mEq/L (5.0-15.0); Magnesium 1.8 mg/dL (1.6-2.4); Potassium 3.8 mEq/L (3.5-5.1); Troponin High Sensitivity 17.6 pg/mL (<58.9)
--- NOTE | 2024-09-07 03:38 | RAD REPORT ---
PROCEDURE: CT Chest, Abdomen and Pelvis Without Intravenous Contrast CLINICAL INDICATION: The patient is 88 years old and is Female; FALL TECHNIQUE: Axial computed tomography images of the chest, abdomen and pelvis without intravenous contrast. Sag ittal and coronal reformatted images were created and reviewed. This CT exam was performed using one or more of the following dose reduction techniques: automated exposure control, adjustment of t he mA and/or kV according to patient size, and/or use of iterative reconstruction technique. COMPARISON: 07/13/2024 CT chest abdomen pelvis without contrast FINDINGS: CHEST: LUNGS: Expiratory appearance of the lung volumes bilaterally. Dependent bibasilar subsegmental atel ectasis. No additional focal consolidation. No mass. PLEURAL SPACE: No significant effusion. No pneumothorax. HEART: No cardiomegaly. No significant pericardial effusion. Moderate multivessel coronary artery calcifications. THYROID: Thyroid nodule measuring 3.5 cm in maximum dimension. ABDOMEN: LIVER: Grossly unremarkable. GALLBLADDER AND BILE DUCTS: Grossly unremarkable. No calcified stones. No ductal dilation. PANCREAS: Grossly unremarkable. No ductal dilation. SPLEEN: Grossly unremarkable. No splenomegaly. ADRENALS: Grossly unremarkable. No mass. KIDNEYS AND URETERS: Asymmetric prominence of the right renal pelvis versus the left, similar to prio r exam. No obstructing stones. No hydronephrosis of the left or right calyces. STOMACH AND BOWEL: Colonic diverticulosis without evidence of acute diverticulitis. No obstruction. PELVIS: APPENDIX: No findings to suggest acute appendicitis. BLADDER: Unremarkable No stones. REPRODUCTIVE: Unremarkable as visualized. CHEST, ABDOMEN and PELVIS: INTRAPERITONEAL SPACE: No significant fluid collection. No free air. BONES/JOINTS: Redemonstrated comminuted fracture of the left clavicular head, unchanged. Remote comminuted fractures of the right parasymphyseal pubic rami, unchanged. Remote multilevel fractures of the lateral left 3rd through 5th ribs, with some callus format ion. Mild levoscoliotic curvature of the lumbar spine. Multilevel posterior fixation of the bilateral L3-L5 vertebral bodies, with right L3 transped icular screw terminating within the L2-L3 intervertebral space, unchanged from prior exam. Interval development of multilevel anterior lateral right-sided rib fractures, with some poss ibly demonstrating callus formation suggesting healing/subacute chronicity. Correlation with point tenderness recommended. No dislocation. SOFT TISSUES: Numerous metallic foreign bodies redemonstrated throughout the bilateral lower chest, abdominal pelvic cavity, and visualized right upper extremity. VASCULATURE: Severe calcified atherosclerosis of the abdominal aorta without aneurysmal dilatation. Mild calcified atherosclerosis of the thoracic aorta without aneurysmal dilatation. LYMPH NODES: Unremarkable No enlarged lymph nodes. IMPRESSION: 1. Interval development of multilevel anterior lateral right-sided rib fractures, with some possibl y demonstrating callus formation suggesting healing/subacute chronicity. Correlation with point tenderness recommended. Remote lateral left 3rd through 5th rib fractures, as well as comminuted frac ture of the left clavicular head, redemonstrated. 2. Otherwise, allowing for lack of intravascular contrast and streak artifact from numerous redemon strated radiopaque foreign bodies throughout the chest, abdomen, pelvis, and visualized right upper extremity, no additional acute abnormality of the chest, abdomen, or pelvis. 3. Thyroid nodule measuring 3.5 cm in maximum dimension. Recommend further characterization by none mergent thyroid ultrasound. 4. Additional nonacute findings as above. Electronically signed by: Jimmie Bill MD 09/07/2024 03:17 AM CDT Due to temporary technical issues with the PACS/[employer] reporting system, reports are being yanet d by the in-house radiologist without review as a courtesy to ensure prompt reporting the interpreting radiologist is fully responsible for the content of the report. Transcribed Date/Time: 09/07/2024 3:38 AM
--- NOTE | 2024-09-07 03:38 | RAD REPORT ---
PROCEDURE: CT Head and Cervical Spine Without Intravenous Contrast CLINICAL INDICATION: The patient is 88 years old and is Female; fall Bed Name: 24 TECHNIQUE: Axial computed tomography images of the head/brain and cervical spine without intravenous contrast. Sagittal and coronal reformatted images were created and reviewed. This CT exam was performed using one or more of the following dose reduction techniques: automated exposure control, adjustmen t of the mA and/or kV according to patient size, and/or use of iterative reconstruction technique. 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 Mild bilateral periventricular and deep white matter microangiopathy changes. Mild effacement of the superior right frontal parietal sulci, unchanged. No acute extra-axial fluid collection or intracranial hemorrhage. No focal frazier-white matter differentiation abnormality. MIDLINE SHIFT: No midline shift. VENTRICLES: Unremarkable No ventriculomegaly. SKULL: See below. SINUSES: Partial opacification of the right sphenoid sinus, unchanged. MASTOID AIR CELLS: Unremarkable as visualized. No mastoid effusion. VERTEBRAE: Multilevel cervical spondylosis. No acute fracture or acute vertebral body height loss. No significant subluxation. DISCS/SPINAL CANAL/NEURAL FORAMINA: No acute findings. No transtentorial herniation. No significant bony spinal canal stenosis. OTHER BONES/JOINTS: Redemonstrated chronic comminuted fracture of the left clavicular head, partial ly visualized, and unchanged as visualized from prior exams. No fracture of the calvarium or visualized facial bones. SOFT TISSUES: Unremarkable No abnormal prevertebral soft tissue swelling. THYROID: Left lobe thyroid nodule measuring up to 3.5 cm in maximum dimension. OTHER FINDINGS: Dens is intact. No dislocation. Craniocervical orientation is normal. IMPRESSION: 1. 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 2. Chronic and senescent changes with no acute intracranial or cervical spine abnormality. 3. Left thyroid lobe nodule measuring 3.5 cm in maximum dimension. Further characterization by thyr oid ultrasound recommended. Electronically signed by: Jimmie Bill MD 09/07/2024 03:06 AM CDT RP Due to temporary technical issues with the PACS/[employer] reporting system, reports are being yanet d by the in-house radiologist without review as a courtesy to ensure prompt reporting the interpreting radiologist is fully responsible for the content of the report. Transcribed Date/Time: 09/07/2024 3:37 AM
--- NOTE | 2024-09-07 04:05 | ER ---
Nurse's Notes [facility] Name: Brionna Tee Age: 88 yrs Sex: Female : 1935 Arrival Date: 09/07/2024 Time: 01:03 Bed 24 Private MD: Diagnosis: Fall from bed, initial encounter;Weakness;Right Frontoparietal Subdural Hematoma Presentation: 09/07 01:42 Chief complaint: Patient states: S/P WEAKNESS...PT NEAR FALL, SLID TO FLOOR ON RIGHT br2 HIP. PT C/O PAIN TO RIGHT HIP/ARM. S/P "HEAD BLEED" AND WAS RECENTLY DISCHARGED FROM [facility]. Coronavirus screen: Client denies travel out of the [place] in the last 14 days. Ebola Screen: Patient denies exposure to infectious person. Initial Sepsis Screen: Does the patient meet any 2 criteria? No. Patient's initial sepsis screen is negative. Does the patient have a suspected source of infection? No. Patient's initial sepsis screen is negative. Risk Assessment: Do you want to hurt yourself or someone else? Patient reports no desire to harm self or others. Onset of symptoms is unknown. 01:42 Method Of Arrival: EMS: [facility] br2 01:42 Acuity: OTILIA 3 br2 Triage Assessment: 07:30 General: Behavior is. rg5 Historical: - Allergies: 01:47 ACETAMINOPHEN; br2 - PMHx: 01:47 Hypercholesterolemia; Hypertensive disorder; Pelvic fracture; br2 - PSHx: 01:47 back surgery; Total abdominal hysterectomy; br2 - Immunization history:: Adult Immunizations up to date. - Infectious Disease History:: Denies. - Social history:: Smoking status: . Screenin:47 [facility] ED Fall Risk Assessment (Adult) History of falling in the last 3 months, br2 including since admission Yes- fall prone (multiple falls) (3 pts) Confusion or Disorientation No (0 pts) Intoxicated or Sedated No (0 pts) Impaired Gait Yes (1 pt) Mobility Assist Device Used Yes (1 pt) Altered Elimination Yes (1 pt) Score/Fall Risk Level 3 or more points = High Risk Oriented to surroundings. Abuse screen: Denies threats or abuse. Denies injuries from another. Nutritional screening: No deficits noted. Tuberculosis screening: No symptoms or risk factors identified. Assessment: 03:25 Reassessment: see triage assessment. br2 Vital Signs: 01:42 BP 138 / 58; Pulse 68; Resp 18; Temp 97.2; Pulse Ox 88% on R/A; Weight 58.97 kg; Height br2 5 ft. 5 in. ; Pain 0/10; 02:17 BP 120 / 56; Pulse 73; Resp 19; Pulse Ox 100% 3 lpm ; Weight 52.16 kg; Height 5 ft. 5 hw in. ; 03:25 BP 122 / 55; Pulse 75; Resp 18; Pulse Ox 98% ; br2 06:00 BP 121 / 60; Pulse 77; Resp 17; Temp 98; Pulse Ox 100% on 3 lpm NC; Pain 3/10; rg5 02:17 Body Mass Index 19.14 (52.16 kg, 165.1 cm) hw 01:42 Pain Scale: Adult br2 06:00 Pain Scale: Adult rg5 ED Course: 01:05 Patient arrived in ED. rv1 01:07 Demetris Markham PA is PHCP. cp 01:07 Demetris Junior MD is Attending Physician. cp 01:46 Chest Abd Pelvis Wo Con In Process Unspecified. EDMS 01:46 Head C Spine Mpr Wo Con In Process Unspecified. EDMS 01:47 Triage completed. br2 01:47 Patient has correct armband on for positive identification. Fall risk band placed. br2 Placed in gown. Bed in low position. Call light in reach. Side rails up X 1. Provided Education on: plan of care. 02:13 Basic Metabolic Panel Sent. hw 02:13 CBC with Diff Sent. hw 02:13 Magnesium Sent. hw 02:13 PT-INR Sent. hw 02:13 Troponin HS Sent. hw 02:13 Inserted saline lock: 20 gauge in right wrist, using aseptic technique. Blood hw collected. Flushed with 10 mL NS. 02:13 EKG done, by ED staff. hw 03:23 Margie Cruz, MAXINE is Primary Nurse. br2 06:00 Patient transferred, IV remains in place. intact, No redness/swelling at site. rg5 Administered Medications: 05:38 Drug: fentaNYL (PF) IVP 25 mcg IVP once Route: IVP; Site: right forearm; rg5 05:45 Follow up: Response: No adverse reaction; Pain is decreased rg5 Medication: 05:30 VIS not applicable for this client. rg5 Outcome: 04:04 ER care complete, transfer ordered by MD. gutierres 06:00 Transferred by ground EMS to [facility], rg5 06:00 Condition: stable 06:00 Instructed on the need for transfer, 06:13 Patient left the ED. rg5 Signatures: Dispatcher [employer] EDMS Demetris Markham PA PA cp Villegas, Rebecca rv1 Larry Kang RN RN rg5 Margie Cruz RN RN br2 Lupe Strange
--- NOTE | 2024-09-07 04:05 | EDPHYS ---
Physician Documentation [facility] Name: Brionna Tee Age: 88 yrs Sex: Female : 1935 Arrival Date: 09/07/2024 Time: 01:03 Bed 24 Private MD: ED Physician Demetris Junior HPI: 09/07 01:20 This 88 yrs old Female presents to ER via EMS with complaints of Fall. cp 01:20 Details of fall: The patient fell from seated position, off the edge of a bed, and cp struck a tile surface. Onset: The symptoms/episode began/occurred last night. Associated injuries: The patient sustained hip and low back. 01:20 Severity of symptoms: in the emergency department the symptoms weakness of legs. cp Patient live at home alone. EMS reports patient fell from bed and was unable to get up from ground due to weakness. Recent discharge from [facility] after sustaining intracranial bleed from fall. Historical: - Allergies: 01:47 ACETAMINOPHEN; br2 - PMHx: 01:47 Hypercholesterolemia; Hypertensive disorder; Pelvic fracture; br2 - PSHx: 01:47 back surgery; Total abdominal hysterectomy; br2 - Immunization history:: Adult Immunizations up to date. - Infectious Disease History:: Denies. - Social history:: Smoking status: . ROS: 01:25 Constitutional: Negative for body aches, chills, fever, poor PO intake, cp 01:25 Cardiovascular: Negative for chest pain, edema, palpitations, cp 01:25 Respiratory: Negative for cough, shortness of breath, wheezing, 01:25 Eyes: Negative for injury, pain, redness, and discharge, cp 01:25 ENT: Negative for drainage from ear(s), ear pain, sore throat, difficulty swallowing, difficulty handling secretions, 01:25 Abdomen/GI: Negative for abdominal pain, vomiting, diarrhea, constipation, 01:25 : Negative for urinary symptoms, 01:25 Neuro: Positive for weakness, Negative for altered mental status, loss of consciousness, syncope, 01:25 All other systems are negative, Exam: 01:30 Constitutional: The patient appears in no acute distress, alert, awake, cp non-diaphoretic, well developed, frail, 01:30 Head/face: Exam is negative for acute injury. cp 01:30 Eyes: Periorbital structures: appear normal, Pupils: equal, round, and reactive to light and accomodation, Extraocular movements: intact throughout, Conjunctiva: normal, no exudate, no injection, Sclera: no appreciated abnormality, Lids and lashes: appear normal, bilaterally, :30 ENT: External ear(s): are unremarkable, Nose: is normal, Mouth: Lips: moist, Oral mucosa: moist, Posterior pharynx: Airway: no evidence of obstruction, patent, :30 Neck: C-spine: vertebral tenderness, is not appreciated, crepitus, is not appreciated, :30 Chest/axilla: Inspection: normal, Palpation: crepitus, is not appreciated, tenderness, is not appreciated, :30 Cardiovascular: Rate: normal, Rhythm: regular, Edema: is not appreciated, JVD: is not appreciated, :30 Respiratory: the patient does not display signs of respiratory distress, Respirations: normal, no use of accessory muscles, no retractions, labored breathing, is not present, Breath sounds: are clear throughout, no decreased breath sounds, no stridor, no wheezing, :30 Abdomen/GI: Inspection: abdomen appears normal, Palpation: abdomen is soft and non-tender, in all quadrants, :30 Back: pain, that is mild, ROM is painful, with all movement, :30 Musculoskeletal/extremity: Extremities: noted in the hip pain: 01:30 Neuro: Orientation: to place, situation, Mentation: able to follow commands, Motor: moves all fours, Sensation: no obvious gross deficits, 02:06 ECG was reviewed by the Attending Physician. cp Vital Signs: 01:42 BP 138 / 58; Pulse 68; Resp 18; Temp 97.2; Pulse Ox 88% on R/A; Weight 58.97 kg; Height br2 5 ft. 5 in. ; Pain 0/10; 02:17 BP 120 / 56; Pulse 73; Resp 19; Pulse Ox 100% 3 lpm ; Weight 52.16 kg; Height 5 ft. 5 hw in. ; 03:25 BP 122 / 55; Pulse 75; Resp 18; Pulse Ox 98% ; br2 06:00 BP 121 / 60; Pulse 77; Resp 17; Temp 98; Pulse Ox 100% on 3 lpm NC; Pain 3/10; rg5 02:17 Body Mass Index 19.14 (52.16 kg, 165.1 cm) hw 01:42 Pain Scale: Adult br2 06:00 Pain Scale: Adult rg5 MDM: 04:04 Medical Screening Exam initiated cp 04:05 Data reviewed: vital signs, nurses notes, lab test result(s), EKG, radiologic studies, cp CT scan, I have discussed the patient's presentation/case with the attending Emergency Department Physician; and as a result, I will transfer patient. 04:05 Differential diagnosis: closed head injury, contusion, fracture, laceration, multiple cp trauma. Independent interpretation of the following test(s) in the Emergency Department EKG: See my EKG interpretation above. Care significantly affected by the following chronic conditions: Hypertension. Counseling: I had a detailed discussion with the patient and/or guardian regarding the historical points, exam findings, and any diagnostic results supporting the discharge/admit diagnosis, lab results, radiology results, the need to transfer to another facility, continuity of care. 09/07 01:15 Order name: Basic Metabolic Panel; Complete Time: 03:51 cp 09/07 03:51 Interpretation: Normal except: NA 132; GLUC 111; GFR 58. cp 09/07 01:15 Order name: CBC with Diff; Complete Time: 03:51 cp 09/07 03:52 Interpretation: Normal except: WBC 12.10; RBC 3.32; HGB 8.7; HCT 25.7; MCV 77.4; MCH cp 26.2; MPV 7.3; MAYANK% 83.1; LYM% 5.7; NEUT A 10.1. 09/07 01:15 Order name: Magnesium; Complete Time: 03:51 cp 09/07 01:15 Order name: PT-INR cp 09/07 01:15 Order name: Troponin HS; Complete Time: 03:51 cp 09/07 01:30 Order name: Chest Abd Pelvis Wo Con EDMS 09/07 01:30 Order name: Head C Spine Mpr Wo Con EDMS 09/07 01:15 Order name: EKG; Complete Time: 01:15 cp 09/07 01:15 Order name: Cardiac monitoring; Complete Time: 02:13 cp 09/07 01:15 Order name: EKG - Nurse/Tech; Complete Time: 02:13 cp 09/07 01:15 Order name: IV Saline Lock; Complete Time: 02:13 cp 09/07 01:15 Order name: Labs collected and sent; Complete Time: 02:13 cp 09/07 01:15 Order name: O2 Per Protocol; Complete Time: 02:13 cp 09/07 01:15 Order name: O2 Sat Monitoring; Complete Time: 02:13 cp 09/07 02:26 Order name: Misc. Order: RECOLLECT BLUE TOP; Complete Time: 05:22 rv1 EC:06 Rate is 73 beats/min. Rhythm is regular. GA interval is normal. QRS interval is normal. cp QT interval is normal. T waves are Inverted in lead aVR. Interpreted by me. Reviewed by me. Administered Medications: 05:38 Drug: fentaNYL (PF) IVP 25 mcg IVP once Route: IVP; Site: right forearm; rg5 05:45 Follow up: Response: No adverse reaction; Pain is decreased rg5 Disposition: 09/08 01:50 Chart complete. cp Disposition Summary: 09/07/24 04:04 Transfer Ordered Notes: Transfer Location: [facility] Reason: Higher level of care cp Condition: Fair cp Problem: new cp Symptoms: are unchanged cp Accepting Physician: DR. Farris(09/07/24 06:13) rg5 Diagnosis - Fall from bed, initial encounter cp - Weakness cp - Right Frontoparietal Subdural Hematoma cp Forms: - Medication Reconciliation Form cp - SBAR form cp Addendum: 08:59 Co-signature as Attending Physician, Demetris Junior MD I agree with the assessment and c devine plan of care. Signatures: Dispatcher [employer] Demetris Carr MD MD cha Page, Corey, PA PA cp Delatorre, Criss rv1 Larry Kang RN RN rg5 Margie Cruz RN RN br2 Corrections: (The following items were deleted from the chart) 09/07 01:16 01:15 BASIC METABOLIC PANEL+C.LAB.BRZ ordered. EDMS EDMS 01:16 01:15 CBC+H.LAB.BRZ ordered. EDMS EDMS 01:16 01:15 MAGNESIUM+C.LAB.BRZ ordered. EDMS EDMS 01:16 01:15 PROTIME (+INR)+COAG.LAB.BRZ ordered. EDMS EDMS 01:16 01:15 Troponin High Sensitivity+C.LAB.BRZ ordered. EDMS EDMS 01:16 01:15 Urinalysis W/Microscopic+U.LAB.BRZ ordered. EDMS EDMS 01:30 01:16 Head C Spine Cap Wo Con+CT.RAD.BRZ ordered. EDMS EDMS 04:39 04:04 Doctor cp rv1 04:44 04:39 DR. Farris rv1 cp 06:13 04:44 DR. Farris cp rg5 09/08 01:45 04 01:20 Associated injuries: The patient sustained low back, cp cp
[2024-09-07 05:29] LABS: PT Prothrombin Time 12.3 SECONDS (10-13.0); Protime INR 1.08
[2024-09-07] MEDS ORDERED: FENTANYL CITR 100 MCG/2 ML ONE (05:33)
[2024-09-07 06:39] VITALS: BP 121/60; TEMP 98; O2SAT 100
== END 2024-09-07 06:13 | disposition short-term general hospital (02) ==
LOC: ER 01:03
DX: S06.5X0A Traumatic subdural hemorrhage without loss of consciousness, initial encounter (principal); W06.XXXA Fall from bed, initial encounter; I10 Essential (primary) hypertension; E78.00 Pure hypercholesterolemia, unspecified
CPT/HCPCS: 93005; 85025; 80048; 36415; 83735; 85610; 84484; 70450; 71250; 72125; 74176; J3010; 96374; 99285